=== PATIENT | male | born 1945 | race Caucasian/White ===

== ENCOUNTER → 2016-06-11 | Outpatient (CLI) | payer MEDICARE, OTHER | LOC: RAD 10:07 | PROVIDERS: ATTEND Internal Medicine | DX: C34.11 Malignant neoplasm of upper lobe, right bronchus or lung (principal) | CPT/HCPCS: 71260; 82565 ==

== ENCOUNTER → 2016-10-22 | Outpatient (CLI) | payer MEDICARE, OTHER ==
--- NOTE | 2016-10-22 15:48 | RADIOLOGY REPORT (SQ) ---
EXAM DESCRIPTION: CT SOFT TISSUE NECK WITH COMPLETED DATE/TIME: 10/22/2016 1:50 pm REASON FOR STUDY: LUNG CANCER C34.11 MALIGNANT NEOPLASM OF UPPER LOBE, RIGHT BRONCHUS OR L COMPARISON: None. TECHNIQUE: Post IV contrasted scanning from skull base through lung apices with review of bone, soft tissue and lung windows. Reconstructed coronal and sagittal MPR images reviewed. All images stored on PACS. All CT scanners at this facility use dose modulation, iterative reconstruction, and/or weight based d osing when appropriate to reduce radiation dose to as low as reasonably achievable (ALARA). [facility]: Dose Right [facility]: CareDose [facility]: Dose Right [facility]: Teradose 4D [facility]: [employer] CONTRAST TYPE AND DOSE: contrast/concentration: Isovue 370.00 mg/ml; Total Contrast Delivered: 83.0 ml; Total Saline Delivered: 68.0 ml RENAL FUNCTION: Creatinine 0.8 RADIATION DOSE: 10.54 . LIMITATIONS: None. FINDINGS: SKULL BASE: Intact. MAJOR SALIVARY GLANDS: No solid or cystic masses. No inflammatory changes. LYMPHADENOPATHY: No adenopathy. MUCOSAL MASSES OR ASYMMETRY: No mucosal masses or asymmetry. LARYNX/CORDS: No abnormal findings. VASCULAR STRUCTURES: The major vessels are patent. LUNG APICES: Clear. BONES: Multilevel degenerative disc changes. THYROID: Normal size. No masses. PARANASAL SINUSES: Clear. OTHER: No other significant finding. IMPRESSION: NO SIGNIFICANT FINDING IN THE SOFT TISSUES OF THE NECK. TECHNICAL DOCUMENTATION: JOB ID: [id number] Quality ID # [id number]: Final reports with documentation of one or more dose reduction techniques (e.g., Au tomated exposure control, adjustment of the mA and/or kV according to patient size, use of iterative reconstruction technique) 2010 [employer]- All Rights Reserved
--- NOTE | 2016-10-22 16:05 | RADIOLOGY REPORT (SQ) ---
EXAM DESCRIPTION: CT CHEST WITH; CT ABD/PELVIS WITH IV ONLY COMPLETED DATE/TIME: 10/22/2016 1:50 pm; 10/22/2016 1:51 pm REASON FOR STUDY: LUNG CANCER C34.11 MALIGNANT NEOPLASM OF UPPER LOBE, RIGHT BRONCHUS OR L COMPARISON: Prior CT chest 06/11/2016, 12/11/2015, 05/15/2015, 12/02/2014, 07/25/2014 CONTRAST TYPE AND DOSE: 83 mL Isovue 370- low osmolar. RENAL FUNCTION: Creatinine 0.8 TECHNIQUE: CT scan of the chest performed using helical scanning technique with dynamic intravenous contrast injection. Images reviewed with lung, soft tissue and bone windows. Reconstructed coronal a nd sagittal MPR images reviewed. All images stored on PACS. CT scan of the abdomen and pelvis performed with intravenous and without oral contrastusing helical s cornelio technique with dynamic intravenous contrast injection. Images reviewed with lung, soft tissu e and bone windows. Reconstructed coronal and sagittal MPR images reviewed. Delayed images for eval uation of the urinary system also acquired and evaluated. All images stored on PACS. All CT scanners at this facility use dose modulation, iterative reconstruction, and/or weight based d osing when appropriate to reduce radiation dose to as low as reasonably achievable (ALARA). [facility]: Dose Right [facility]: CareDose [facility]: Dose Right [facility]: Teradose 4D [facility]: [employer] RADIATION DOSE: 12.0; 60.90 . LIMITATIONS: None. FINDINGS: CHEST: LUNGS AND PLEURA: Patient is post wedge resection right apical tumor. There is trace pleural fluid i n the inferior right hemithorax, decreased compared to CT chest 06/11/2016 and 12/11/2015. Minimal patchy airspace disease is present in the medial aspect of the lingula, new compared to prior study worrisome for early or developing pneumonia. This is best shown on axial images 34-37. No left pleural fluid. No right or left pneumothorax. HILAR AND MEDIASTINAL STRUCTURES: Calcified sub- carinal lymph node unchanged. No hilar adenopathy. HEART AND VASCULAR STRUCTURES: No aneurysm or dissection. No central pulmonary emboli. No pericardi al effusion. Mild coronary artery calcification HARDWARE: None. THYROID AND OTHER SOFT TISSUES: No masses. No adenopathy. BONES: No significant finding. OTHER: No other significant finding. ABDOMEN AND PELVIS: LIVER: Normal size. No masses or dilated ducts. SPLEEN: Market splenium megaly, spleen is 20 cm in greatest craniocaudad length. This is new compare d to previous exams. PANCREAS: No masses. No significant calcifications. No adjacent inflammation or peripancreatic fluid collections. Pancreatic duct not dilated. GALLBLADDER: No identified stones by CT criteria. No inflammatory changes to suggest cholecystitis. ADRENAL GLANDS: No significant masses or asymmetry. RIGHT KIDNEY AND URETER: No solid masses. No significant calcification. No hydronephrosis or hydroure ter. LEFT KIDNEY AND URETER: No solid masses. No significant calcification. No hydronephrosis or hydrouret er. AORTA AND VESSELS: No aneurysm. No dissection. Renal arteries, SMA, celiac without stenosis. RETROPERITONEUM: Diffuse retroperitoneal adenopathy is present along the splenic hilum, para-aortic a nd aortocaval regions best shown on coronal images 28-36. Lymph nodes are increased in number but st ill normal in size. BOWEL AND PERITONEAL CAVITY: No masses or inflammatory changes. No free fluid or peritoneal masses. APPENDIX: Normal. ABDOMINAL WALL: No masses. No hernias. BONES: No significant or acute findings. OTHER: No other significant finding. IMPRESSION: Minimal patchy airspace disease in the medial aspect upper lobe lingula, atelectasis inocente palmira pneumonia Decrease in right pleural fluid compared to previous postoperative chest CT exams 06/11/2016 and 2015 New splenomegaly with increased number of retroperitoneal lymph nodes. NORMAL CT OF THE ABDOMEN AND PELVIS WITH ORAL AND INTRAVENOUS CONTRAST. TECHNICAL DOCUMENTATION: JOB ID: [id number] Quality ID # [id number]: Final reports with documentation of one or more dose reduction techniques (e.g., Au tomated exposure control, adjustment of the mA and/or kV according to patient size, use of iterative reconstruction technique) 2010 [employer]- All Rights Reserved
== END ==
LOC: RAD 12:27
PROVIDERS: ATTEND Internal Medicine
DX: C34.11 Malignant neoplasm of upper lobe, right bronchus or lung (principal)
CPT/HCPCS: 70491; 71260; 74177

== ENCOUNTER 2016-11-11 17:17 | Outpatient (CLI) | payer MEDICARE, OTHER ==
[2016-11-11 19:22] LABS: HEMATOCRIT 25.7 % (37.9-51.0); HEMOGLOBIN 8.4 g/dL (13.5-17.0); HGB HCT DIFFERENCE -0.5; MEAN CORPUSCULAR HEMOGLOBIN 29.6 pg (27.0-33.4); MEAN CORPUSCULAR HGB CONC 32.8 g/dL (32.0-36.0); MEAN CORPUSCULAR VOLUME 90 fl (80-97); RED BLOOD COUNT 2.85 10^6/uL (4.35-5.55); RED CELL DISTRIBUTION WIDTH 16.5 % (11.5-14.0); WHITE BLOOD COUNT 8.2 10^3/uL (4.0-10.5)
[2016-11-12] MEDS ORDERED: DIPHENHYDRAMINE HCL 25 MG CAPSULE PO PRN (11:09)
[2016-11-12] MEDS ORDERED: ACETAMINOPHEN 325 MG TABLET PO PRN (11:09)
[2016-11-12] MEDS ORDERED: NORMAL SALINE 250 ML IV PRN (11:12)
[2016-11-12 12:19] VITALS: BP 118/50
== END 2016-11-12 12:20 | disposition home or self-care (01) ==
LOC: OD 17:17 → 5TH 11-12 11:06 → II 11-12 12:20
PROVIDERS: ATTEND Internal Medicine
PROC: 30233R1 Transfusion of Nonautologous Platelets into Peripheral Vein, Percutaneous Approach (ICD-10-PCS; principal; 2016-11-12)
DX: C83.18 Mantle cell lymphoma, lymph nodes of multiple sites (principal); D69.6 Thrombocytopenia, unspecified; D50.8 Other iron deficiency anemias
CPT/HCPCS: 86900; 86901; 36415; 36430; P9035; A9270 ×2

== ENCOUNTER 2017-04-03 16:37 | Inpatient (IN) | payer MEDICARE, OTHER ==
[2017-04-03] MEDS ORDERED: IPRATROPIUM/ALBUTEROL 0.5-2.5 MG/3 ML AMPUL NEB ONE ×3 (17:41→19:04)
[2017-04-03] MEDS ORDERED: METHYLPREDNISOLONE INJ 125 MG/2 ML SDV IV ONE ×2 (17:41→19:40)
[2017-04-03] MEDS ORDERED: CEFTRIAXONE 1 GM/D5W RTU 1 GM/50 ML RTUPB IV ONE (17:42)
--- NOTE | 2017-04-03 17:52 | ER Document Report ---
ED Respiratory Problem - General Chief Complaint: Breathing Difficulty Stated Complaint: DIFFICULTY BREATHING Time Seen by Provider: 04/03/17 17:30 Notes: Patient is complaining of COPD that is worsened over the past 10 days. He uses a nebulizer at home with Spiriva and Advair and he thinks albuterol, but it is not helping much anymore. He does not have home oxygen. He says that he is coughing up "chunks" of yello, w sticky sputum, but has not seen any blood. Patient had the upper lobe of 1 of his lungs removed for cancer last year. Apparently that was able to get all of the cancer out, but, unfortunately, patient was diagnosed 6 months ago with leukemia and is currently getting chemotherapy by Dr. Douglass for the leukemia. Patient continues to smoke about a half a pack of cigarettes a day. Patient says that he has been on a ventilator for a short time in the past. Not sure if he wants to do it again. TRAVEL OUTSIDE OF THE [place] IN LAST 30 DAYS: No - Related Data Allergies/Adverse Reactions: No Known Allergies Allergy (Verified 07/04/15 07:28) Past Medical History - Social History Smoking Status: Current Every Day Smoker Cigarette use (# per day): Yes Chew tobacco use (# tins/day): No Frequency of alcohol use: None Drug Abuse: None Family History: Reviewed & Not Pertinent Patient has suicidal ideation: No Patient has homicidal ideation: No - Past Medical History Cardiac Medical History: Reports: Hx Hypercholesterolemia, Hx Hypertension Denies: Hx Congestive Heart Failure Pulmonary Medical History: Reports: Hx COPD Denies: Hx Asthma, Hx Bronchitis, Hx Pneumonia Endocrine Medical History: Reports: Hx Diabetes Mellitus Type 2 Malignancy Medical History: Reports Hx Leukemia - Currently on chemotherapy, Reports Hx Lung Cancer - Surgical removal of upper lobe of lung last year Past Surgical History: Reports: Other - Upper lobectomy. - Immunizations Hx Diphtheria, Pertussis, Tetanus Vaccination: No Hx Pneumococcal Vaccination: 01/31/12 Review of Systems - Review of Systems Notes: REVIEW OF SYSTEMS: CONSTITUTIONAL : Denies fever. EENT: Denies eye, ear, nose or mouth or throat pain or other symptoms. CARDIOVASCULAR: Denies chest pain. RESPIRATORY: See HPI. GASTROINTESTINAL: Denies abdominal pain or nausea, vomiting, or diarrhea. GENITOURINARY: Denies difficulty or painful urinating, urinary frequency, blood in urine. MUSCULOSKELETAL: Denies back or neck pain. Denies joint pain or swelling. SKIN: Denies rash or skin lesions. NEUROLOGICAL: Denies LOC or altered mental status. Denies headache. Denies sensory loss or motor deficits. ALL OTHER SYSTEMS REVIEWED AND NEGATIVE. Physical Exam - Vital signs Vitals: Pulse Resp Pulse Ox 125 H 30 H 68 L 04/03/17 16:50 04/03/17 16:50 04/03/17 16:50 Interpretation: Tachycardic, Hypoxic, Tachypneic - Notes Notes: PHYSICAL EXAMINATION: GENERAL: Chronically ill appearing. Tachypneic. Appears to have difficulty with his respirations., Labored. O2 by nasal cannula running. HEAD: Atraumatic, normocephalic. EYES: Pupils equal round and reactive to light, extraocular movements intact. ENT: oropharynx clear without exudates. Moist mucous membranes. NECK: Normal range of motion, supple. LUNGS: with a loud rhonchi and some wheezes throughout both lung zamarripa. HEART: Regular rate and rhythm without murmurs. ABDOMEN: Soft, nontender. No guarding or rebound. BACK: No tenderness throughout entire back. EXTREMITIES: Normal range of motion without pain. No edema. NEUROLOGICAL: Normal speech, normal gait. Normal sensory, motor, and reflex exams. Awake, alert, and oriented x3. Cranial nerves normal. PSYCH: Normal mood, normal affect. SKIN: Warm, dry, no rashes. Course - Re-evaluation Re-evalutation: 04/03/17 19:33 Patient has removed his oxygen a couple times and each time his O2 sat drops to upper 60s or 70%. I am going to try him on BiPAP and see if he can tolerate that. Discussed whether the patient wants to be on a ventilator or not and he said he was not sure and would think about it. Discussed with Dr. Evans, who is on-call for Dr. Jefferson, and patient will be admitted to [facility]. Patient has been given DuoNeb 2, Solu-Medrol 125 mg IV, Rocephin 1 g IV. - Vital Signs Vital signs: Temp Pulse Resp BP Pulse Ox 98.6 F 122 H 61 H 128/79 H 93 04/03/17 17:03 04/03/17 17:03 04/03/17 19:01 04/03/17 19:01 04/03/17 19:01 - Laboratory Result Diagrams: 04/03/17 17:40 04/03/17 17:40 Laboratory results interpreted by me: 04/03/17 04/03/17 17:40 17:40 RBC 4.06 L Hgb 12.4 L Hct 36.8 L Band Neutrophils % 9 H Lymphocytes % (Manual) 5 L Monocytes % (Manual) 42 H Abs Lymphs (Manual) 0.3 L Abs Monocytes (Manual) 2.0 H Chloride 96 L Carbon Dioxide 37 H Glucose 184 H Calcium 10.4 H Direct Bilirubin 0.5 H Creatine Kinase < 20 L Band percentage of 9% noted. - Diagnostic Test Radiology reviewed: Image reviewed, Reports reviewed - Chest x-ray shows COPD, but no acute radiological - EKG Interpretation by Me EKG shows normal: Sinus rhythm Rate: Tachycardia Additional EKG results interpreted by me: 04/03/17 19:47 EKG shows tachycardia, but no acute changes. Critical Care Note - Critical Care Note Total time excluding time spent on procedures (mins): 45 Discharge - Discharge Clinical Impression: COPD exacerbation, Hypoxia Condition: Serious Disposition: ADMITTED INPATIENT Admitting Provider: Jefferson Unit Admitted: [facility]
[2017-04-03 18:05] LABS: HEMATOCRIT 36.8 % (37.9-51.0); HEMOGLOBIN 12.4 g/dL (13.5-17.0); HGB HCT DIFFERENCE 0.4; MEAN CORPUSCULAR HEMOGLOBIN 30.6 pg (27.0-33.4); MEAN CORPUSCULAR HGB CONC 33.7 g/dL (32.0-36.0); MEAN CORPUSCULAR VOLUME 91 fl (80-97); RED BLOOD COUNT 4.06 10^6/uL (4.35-5.55); RED CELL DISTRIBUTION WIDTH 13.6 % (11.5-14.0); WHITE BLOOD COUNT 4.7 10^3/uL (4.0-10.5)
[2017-04-03 18:24] LABS: ALANINE AMINOTRANSFERASE 35 U/L (21-72); ALBUMIN 3.5 g/dL (3.5-5.0); ALKALINE PHOSPHATASE 81 U/L (38-126); ANION GAP 9 (5-19); ASPARTATE AMINO TRANSFERASE 29 U/L (17-59); BILIRUBIN,DIRECT 0.5 mg/dL (0.0-0.4); BILIRUBIN,TOTAL 0.6 mg/dL (0.2-1.3); BLOOD UREA NITROGEN 10 mg/dL (7-20); CALCIUM 10.4 mg/dL (8.4-10.2); CARBON DIOXIDE 37 mmol/L (22-30); CHLORIDE 96 mmol/L (98-107); CREATININE RESULT 0.54 mg/dL (0.52-1.25); GLUCOSE 184 mg/dL (75-110); LIPASE 40.6 U/L (23-300); POTASSIUM 4.5 mmol/L (3.6-5.0); SODIUM 142.1 mmol/L (137-145); TOTAL PROTEIN 6.3 g/dL (6.3-8.2)
[2017-04-03 18:27] LABS: CREATINE KINASE < 20 U/L (55-170)
--- NOTE | 2017-04-03 18:28 | RADIOLOGY REPORT (SQ) ---
EXAM DESCRIPTION: CHEST SINGLE VIEW COMPLETED DATE/TIME: 04/03/2017 6:11 pm REASON FOR STUDY: COPD, hypoxia, respiratory distress COMPARISON: 07/04/2015 EXAM PARAMETERS: NUMBER OF VIEWS: One view. TECHNIQUE: Single frontal radiographic view of the chest acquired. RADIATION DOSE: NA LIMITATIONS: None. FINDINGS: LUNGS AND PLEURA: No consolidation or pleural effusion. Postsurgical changes from partial right pneumonectomy are present. No pneumothorax. MEDIASTINUM AND HILAR STRUCTURES: Expected contour. HEART AND VASCULAR STRUCTURES: Heart normal in size. Normal vasculature. BONES: No acute findings. HARDWARE: None in the chest. OTHER: No other significant finding. IMPRESSION: NO ACUTE RADIOGRAPHIC FINDING IN THE CHEST. TECHNICAL DOCUMENTATION: JOB ID: [id number] [place]-72 2010 [employer]- All Rights Reserved
[2017-04-03 18:32] LABS: BAND NEUTROPHILS % (MANUAL) 9 % (3-5); BASOPHILS % (MANUAL) 0 % (0-2); EOSINOPHILS % (MANUAL) 0 % (0-6); LYMPHOCYTES % (MANUAL) 5 % (13-45); TOTAL CELLS COUNTED 100
[2017-04-03 18:34] LABS: CREATINE KINASE MB 1.11 ng/mL (<4.55); HYPOCHROMASIA SLIGHT; POLYCHROMASIA SLIGHT; TROPONIN I 0.018 ng/mL
--- NOTE | 2017-04-03 19:03 | EKG REPORT ---
SEVERITY:- ABNORMAL ECG - SINUS TACHYCARDIA LEFT ANTERIOR FASCICULAR BLOCK : Confirmed by: Devin Luevano MD 03-Apr-2017 19:02:27
[2017-04-03] MEDS ORDERED: NORMAL SALINE 1000 ML 1,000 ML IV PRN (19:34)
[2017-04-03] MEDS ORDERED: IPRATROPIUM/ALBUTEROL 0.5-2.5 MG/3 ML AMPUL NEB PRN (19:34)
[2017-04-03 19:35] LABS: APPEARANCE,URINE CLOUDY; BILIRUBIN,URINE NEGATIVE (NEGATIVE); GLUCOSE, URINE 50 mg/dL (NEGATIVE); KETONES,URINE TRACE mg/dL (NEGATIVE); LEUKOCYTE ESTERASE,URINE NEGATIVE (NEGATIVE); NITRITE,URINE NEGATIVE (NEGATIVE); PROTEIN,URINE >=500 mg/dL (NEGATIVE)
[2017-04-03 19:48] LABS: VENOUS BLOOD BASE EXCESS 7.5 mmol/L; VENOUS BLOOD HCO3 36.5 mmol/L (20-32); VENOUS BLOOD PH 7.31 (7.30-7.42)
[2017-04-03 19:50] LABS: VENOUS BLOOD PCO2 73.4 mmHg (35-63)
[2017-04-03 20:00] LABS: RBC,URINE 0-1 /HPF
[2017-04-03 20:01] LABS: BACTERIA,URINE 2+ /HPF
[2017-04-03 20:04] LABS: PROTHROMBIN TIME 14.8 SEC (11.4-15.4)
[2017-04-03 20:05] LABS: PARTIAL THROMBOPLASTIN TIME 46.1 SEC (23.5-35.8)
[2017-04-03 20:14] LABS: MAGNESIUM 1.3 mg/dL (1.6-2.3)
[2017-04-03 20:22] LABS: AMYLASE < 30 U/L (30-110)
[2017-04-03 20:46] LABS: THYROID STIMULATING HORMONE 0.36 uIU/mL (0.47-4.68)
[2017-04-03 21:35] LABS: ARTERIAL BLOOD BASE EXCESS 6.9 mmol/L; ARTERIAL BLOOD O2 SATURATION 94.9 % (94-98)
[2017-04-03] MEDS: LEVOFLOXACIN 750 MG/D5W RTU 750 MG/150 ML RTUPB IV SCH (21:47)
[2017-04-04] MEDS ORDERED: DEXTROSE 40% GEL 15 GM TUBE PO PRN ×2 (00:42)
[2017-04-04] MEDS ORDERED: GLUCAGON,HUMAN RECOMB 1 MG INJ IM PRN (00:42)
[2017-04-04] MEDS ORDERED: DEXTROSE 50%-WATER 25 GM/50 ML DISP.SYRIN IV PRN ×2 (00:42)
[2017-04-04] MEDS: METHYLPREDNISOLONE INJ 125 MG/2 ML SDV IV SCH ×3 (02:44→18:17)
[2017-04-04 06:03] LABS: ALANINE AMINOTRANSFERASE 35 U/L (21-72); ALBUMIN 3.3 g/dL (3.5-5.0); ALKALINE PHOSPHATASE 68 U/L (38-126); ANION GAP 9 (5-19); ASPARTATE AMINO TRANSFERASE 21 U/L (17-59); BILIRUBIN,DIRECT 0.4 mg/dL (0.0-0.4); BILIRUBIN,TOTAL 0.4 mg/dL (0.2-1.3); BLOOD UREA NITROGEN 19 mg/dL (7-20); CALCIUM 10.4 mg/dL (8.4-10.2); CARBON DIOXIDE 38 mmol/L (22-30); CHLORIDE 96 mmol/L (98-107); CHOLESTEROL 131.26 mg/dL (0-200); Direct HDL 31 mg/dL (>40); GLUCOSE 265 mg/dL (75-110); SODIUM 143.1 mmol/L (137-145); TRIGLYCERIDES 122 mg/dL (<150)
[2017-04-04 06:04] LABS: HEMATOCRIT 34.1 % (37.9-51.0); HEMOGLOBIN 11.8 g/dL (13.5-17.0); HGB HCT DIFFERENCE 1.3; MEAN CORPUSCULAR HEMOGLOBIN 31.1 pg (27.0-33.4); MEAN CORPUSCULAR HGB CONC 34.5 g/dL (32.0-36.0); MEAN CORPUSCULAR VOLUME 90 fl (80-97); RED BLOOD COUNT 3.79 10^6/uL (4.35-5.55); RED CELL DISTRIBUTION WIDTH 13.6 % (11.5-14.0)
[2017-04-04 06:14] LABS: DIRECT LDL 76 mg/dL (<100)
[2017-04-04 06:36] LABS: WHITE BLOOD COUNT 2.6 10^3/uL (4.0-10.5)
[2017-04-04 06:44] LABS: POTASSIUM 5.4 mmol/L (3.6-5.0)
[2017-04-04] MEDS ORDERED: ACETAMINOPHEN 325 MG TABLET PO PRN (08:08)
[2017-04-04] MEDS: INSULIN LISPRO 100 UNIT/ML 3 ML VIAL SUBCUT PRN ×4 (08:33→22:23)
--- NOTE | 2017-04-04 08:51 | PDOC CONSULTATION ---
Consultation Consult Date: 04/04/17 Attending physician:: FRANKLIN LEA Consult reason:: Pt w/ known hx of mantle cell lymphoma on active tx w/ copd exacerbation/pneumonia History of Present Illness Admission Date/PCP: 04/03/17 19:42 FRANKLIN LEA MD Patient complains of: SOB/FELIX History of Present Illness: FRANKIE Lau COUSINS is a 72 year old male well known to our oncology clinic w/ both hx of stage I lung ca s/p RU lobectomy and recent dx of mantle cell lymphoma. Recent imaging w/ no evidence of lung ca but pt had mantle cell lymphoma dx in 09/2016 had pancytopenia, bmbx indicated 90% effacement w/ mantle cell lymphoma, CT C/A/P at that time w/ diffuse LAD mediastinal and retroperitoneal w/ splenomegaly, he has been on chemo/rx w/ bendamustine and rituxan, cycle #5 was given 03/07/2017 and he was planned to start cycle #6 today in office. He comes w/ 2-3 day hx of SOB/FELIX, cough, congestion, upon admit to ED, he had O2 sat 70% w/ abg indicating CO2 was 77, he is currently on BIPAP. He is on broad spec atbx awaiting hospital inpt room. His wt ct was 4 range upon admit, lower today at 2.6 Past Medical History Cardiac Medical History: Reports: Hyperlipidema, Hypertension Denies: Congestive Heart Failure Pulmonary Medical History: Reports: Chronic Obstructive Pulmonary Disease (COPD) Denies: Asthma, Bronchitis, Pneumonia Endocrine Medical History: Reports: Diabetes Mellitus Type 2 Malignancy Medical History: Reports: Lung Cancer - RU lobectomy 08/2015, Lymphoma - on rx as in hpi Hematology: Reports: Anemia Past Surgical History Past Surgical History: Reports: Other - R Upper lobectomy, BMBx Social History Information Source: Patient Smoking Status: Current Every Day Smoker Cigarettes Packs Per Day: 1 Number of Years Smokin Frequency of Alcohol Use: Rare Drugs: None - Advance Directive Resuscitation Status: Full Code Family History Family History: Reviewed & Not Pertinent Parental Family History Reviewed: Yes Children Family History Reviewed: Yes Sibling(s) Family History Reviewed.: Yes Medication/Allergy Home Medications: Fenofibrate Nanocrystallized [Tricor 145 mg Tablet] 1 tab PO QHS 11/12/14 Rosuvastatin Calcium [Crestor 20 mg Tablet] 1 tab PO DAILY 11/12/14 Amlodipine Besylate/Benazepril [Amlodipine-Benazepril 10-40 mg] 1 tab PO DAILY 11/14/14 Aspirin [Ecotrin 81 mg EC Tablet] 1 tab PO DAILY 11/14/14 Fluticasone/Salmeterol [Advair 100-50 Diskus 14 Dose/Diskus] 1 puff IH DAILY Pregabalin [Lyrica 100 mg Capsule] 1 tab PO TID 11/14/14 Sitagliptin Phos/Metformin HCl [Janumet Xr 50-1,000 mg Tablet] 1 tab PO BID Tiotropium Wilson [Spiriva Handihaler 18 mcg/dose (30 Dose)] 1 tab PO DAILY Ascorbic Acid [Vitamin C] 1,000 mg PO DAILY 01/20/15 Multivitamin [Daily Multiple Vitamin] 1 each PO DAILY 01/20/15 [place]-3 Fatty Acids/Fish Oil [Fish Oil 1,000 mg Capsule] 1 tab PO BID 01/20/15 Antibiotic 1 tab PO DAILY 07/04/15 Allergies/Adverse Reactions: No Known Allergies Allergy (Verified 07/04/15 07:28) Review of Systems Constitutional: ABSENT: chills, fever(s), headache(s), weight gain, weight loss Eyes: ABSENT: visual disturbances Ears: ABSENT: hearing changes Cardiovascular: ABSENT: chest pain, dyspnea on exertion, edema, orthropnea, palpitations Respiratory: ABSENT: cough, hemoptysis Gastrointestinal: ABSENT: abdominal pain, constipation, diarrhea, hematemesis, hematochezia, nausea, vomiting Genitourinary: ABSENT: dysuria, hematuria Musculoskeletal: ABSENT: joint swelling Integumentary: ABSENT: rash, wounds Neurological: ABSENT: abnormal gait, abnormal speech, confusion, dizziness, focal weakness, syncope Psychiatric: ABSENT: anxiety, depression, homidical ideation, suicidal ideation Endocrine: ABSENT: cold intolerance, heat intolerance, polydipsia, polyuria Hematologic/Lymphatic: ABSENT: easy bleeding, easy bruising Physical Exam Vital Signs: Temp Pulse Resp BP Pulse Ox 98.1 F 122 H 39 H 132/75 H 99 04/04/17 03:11 04/03/17 17:03 04/04/17 07:01 04/04/17 07:01 04/04/17 07:01 Intake & Output 04/03/17 04/04/17 04/05/17 06:59 06:59 06:59 Weight 68.266 kg General appearance: PRESENT: no acute distress, well-developed, well-nourished Head exam: PRESENT: atraumatic, normocephalic Eye exam: PRESENT: conjunctiva pink, EOMI, PERRLA. ABSENT: scleral icterus Ear exam: PRESENT: normal external ear exam Mouth exam: PRESENT: moist, tongue midline Neck exam: ABSENT: carotid bruit, JVD, lymphadenopathy, thyromegaly Respiratory exam: PRESENT: clear to auscultation kali. ABSENT: rales, rhonchi, wheezes Cardiovascular exam: PRESENT: RRR. ABSENT: diastolic murmur, rubs, systolic murmur Pulses: PRESENT: normal dorsalis pedis pul Vascular exam: PRESENT: normal capillary refill GI/Abdominal exam: PRESENT: normal bowel sounds, soft. ABSENT: distended, guarding, mass, organolmegaly, rebound, tenderness Rectal exam: PRESENT: deferred Extremities exam: PRESENT: full ROM. ABSENT: calf tenderness, clubbing, pedal edema Neurological exam: PRESENT: alert, awake, oriented to person, oriented to place , oriented to time, oriented to situation, CN II-XII grossly intact. ABSENT: motor sensory deficit Psychiatric exam: PRESENT: appropriate affect, normal mood. ABSENT: homicidal ideation, suicidal ideation Skin exam: PRESENT: dry, intact, warm. ABSENT: cyanosis, rash Results Laboratory Results: 04/04/17 05:35 04/04/17 05:35 04/03/17 04/03/17 04/04/17 20:06 21:23 05:35 WBC 2.6 L D RBC 3.79 L Hgb 11.8 L Hct 34.1 L MCV 90 MCH 31.1 MCHC 34.5 RDW 13.6 Plt Count 319 Carbonic Acid 2.34 H HCO3/H2CO3 Ratio 15:1 ABG pH 7.28 L ABG pCO2 77.9 H* ABG pO2 86.2 ABG HCO3 35.9 H ABG O2 Saturation 94.9 ABG Base Excess 6.9 FiO2 35% Sodium Potassium Chloride Carbon Dioxide Anion Gap BUN Creatinine Est GFR ( Amer) Est GFR (Non-Af Amer) Glucose Calcium Total Bilirubin AST ALT Alkaline Phosphatase Ammonia 9.0 Total Protein Albumin Triglycerides Cholesterol LDL Cholesterol Direct VLDL Cholesterol HDL Cholesterol 04/04/17 05:35 WBC RBC Hgb Hct MCV MCH MCHC RDW Plt Count Carbonic Acid HCO3/H2CO3 Ratio ABG pH ABG pCO2 ABG pO2 ABG HCO3 ABG O2 Saturation ABG Base Excess FiO2 Sodium 143.1 Potassium 5.4 H Chloride 96 L Carbon Dioxide 38 H Anion Gap 9 BUN 19 Creatinine 0.60 Est GFR ( Amer) > 60 Est GFR (Non-Af Amer) > 60 Glucose 265 H Calcium 10.4 H Total Bilirubin 0.4 AST 21 ALT 35 Alkaline Phosphatase 68 Ammonia Total Protein 6.0 L Albumin 3.3 L Triglycerides 122 Cholesterol 131.26 LDL Cholesterol Direct 76 VLDL Cholesterol 24.0 HDL Cholesterol 31 L 04/03/17 04/03/17 04/04/17 23:45 23:45 05:35 Creatine Kinase < 20 L < 20 L Troponin I 0.018 04/04/17 05:35 Creatine Kinase Troponin I 0.014 Impressions: Chest X-Ray 04/03/17 17:43 IMPRESSION: NO ACUTE RADIOGRAPHIC FINDING IN THE CHEST. Status: Image reviewed by me Assessment & Plan - Diagnosis (1) Pancytopenia due to antineoplastic chemotherapy Is this a current diagnosis for this admission?: Yes Plan: Counts are stable, pt w/ mild leukopenia which is appropriate for him, only monitor for now. (2) Mantle cell lymphoma Qualifiers: Lymphoma site: multiple regions Qualified Code(s): C83.18 - Mantle cell lymphoma, lymph nodes of multiple sites Is this a current diagnosis for this admission?: Yes Plan: Currently on chemo, was supposed to get chemo this week, have told our staff pt is admitted, will likely treat next week once pt d/c'd from hospital. He is doing well and responding very well to treatment. He will receive Cycle #6 as outpt likely next week and transition to maintenance Rituxan therafter. We will reimage him w/ CT CAP after cycle #6. - Time Time Spent: Greater than 70 Minutes - Inpatient Certification Based on my medical assessment, after consideration of the patient's comorbidities, presenting symptoms, or acuity I expect that the services needed warrant INPATIENT care.: Yes I certify that my determination is in accordance with my understanding of Medicare's requirements for reasonable and necessary INPATIENT services [42 CFR 412.3e].: Yes Medical Necessity: Need For Continuous Telemetry Monitoring, Need for Nebulizer Therapy and Monitoring of Response, Need for IV Antibiotics
[2017-04-04] MEDS ORDERED: IPRATROPIUM/ALBUTEROL 0.5-2.5 MG/3 ML AMPUL NEB PRN (09:00)
[2017-04-04] MEDS ORDERED: ENOXAPARIN SODIUM INJ 40 MG/0.4 ML DISP.SYRIN SUBCUT SCH (10:00)
[2017-04-04] MEDS ORDERED: ALBUTEROL SULFATE 0.083% NEB 2.5 MG/3 ML AMPUL NEB PRN (10:09)
[2017-04-04] MEDS: ENOXAPARIN SODIUM INJ 40 MG/0.4 ML DISP.SYRIN SUBCUT SCH (10:55)
[2017-04-04] MEDS: DOCUSATE SODIUM 100 MG CAPSULE PO SCH (10:56)
[2017-04-04] MEDS: CEFEPIME 1 GM/D5W RTU 1 GM/50 ML RTUPB IV SCH ×2 (10:57→22:25)
--- NOTE | 2017-04-04 11:21 | PDOC CONSULTATION ---
Consultation Consult Date: 04/04/17 Attending physician:: FRANKLIN LEA Consult reason:: dyspnea History of Present Illness Admission Date/PCP: 04/03/17 19:42 FRANKLIN LEA MD History of Present Illness: 72-year-old male presents emergency room complaining increasing shortness of breath which should become progressive over the last 7-10 days but still cough sometimes productive light yellow phlegm he denies hemoptysis his PPD status was negative dates unknown he has no history of chronic lung disease as a child or adolescent he denies nausea vomiting fevers chills or diarrhea. He admits to exposure to heavy smoke as a child as well as an adult. He is self smoked 3 packs per day for 56 years and continues to smoke up until 2 weeks ago. He served in [employer] for 20 years. 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 He denies angina-like chest pain he denies any recent travel he has 3 dogs sleeps on one pillow denies PND nocturnal cough or edema. He is unaware of any snoring but admits to some restless sleep nocturia 2 unrestful sleep and excessive daytime somnolence. He has had a history in the past of lung cancer as well as lymphoma and he is being followed by Dr. Douglass for both of these Past Medical History Cardiac Medical History: Reports: Hyperlipidema, Hypertension Denies: Congestive Heart Failure Pulmonary Medical History: Reports: Chronic Obstructive Pulmonary Disease (COPD) Denies: Asthma, Bronchitis, Pneumonia EENT Medical History: Denies: Ears, Nose Neurological Medical History: Denies: Hemorrhagic CVA, Ischemic CVA, Migraine, Multiple Sclerosis, Seizures Endocrine Medical History: Reports: Diabetes Mellitus Type 2 Denies: Gestational Diabetes, Hyperthyroidism, Hypothyroidism, Obesity Renal/ Medical History: Denies: Nephrolithiasis Malignancy Medical History: Reports: Leukemia - Currently on chemotherapy, Lung Cancer - RU lobectomy 08/2015, Lymphoma - on rx as in hpi GI Medical History: Denies: Cirrhosis, Crohn's Disease, Peptic Ulcer Disease, Ulcerative Colitis Musculoskeltal Medical History: Denies: Fibromyalgia, Gout Skin Medical History: Denies: Eczema, Psoriasis Psychiatric Medical History: Reports: Tobacco Dependency Hematology: Reports: Anemia Denies: Sickle Cell Disease Infectious Medical History: Denies: Hepatitis B, Hepatitis C Past Surgical History Past Surgical History: Reports: Other - R Upper lobectomy, BMBx Social History Information Source: Patient, H Records 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 Smoking Status: Current Every Day Smoker Cigarettes Packs Per Day: 3 Number of Years Smokin Passive smoke exposure as: Both Frequency of Alcohol Use: Rare Hx Recreational Drug Use: No Drugs: None Hx Prescription Drug Abuse: No Do you have pets?: Yes Have you had any respiratory illnesses as a child?: No Have you had any recent respiratory illnesses?: No Have you travelled outside of [place] in the past 12 months?: No - Advance Directive Resuscitation Status: Full Code Family History Family History: DM, Hypertension, Malignancy Parental Family History Reviewed: Yes Children Family History Reviewed: Yes Sibling(s) Family History Reviewed.: Yes Medication/Allergy Home Medications: Allopurinol [Zyloprim 300 mg Tablet] 300 mg PO DAILY 04/04/17 Amlodipine Besylate/Benazepril [Lotrel 10-40 mg Capsule] 1 cap PO DAILY Ascorbic Acid [Vitamin C] 1,000 mg PO DAILY 04/04/17 Aspirin [Ecotrin 81 mg EC Tablet] 81 mg PO DAILY 04/04/17 Atorvastatin Calcium [Lipitor 20 mg Tablet] 20 mg PO QHS 04/04/17 Fenofibrate Nanocrystallized [Tricor 145 mg Tablet] 145 mg PO QHS 04/04/17 Fluticasone Propionate [Flonase Nasal [place] 50 Mcg/Marvin 16 gm] 1 spray NASL DAILY 04/04/17 Fluticasone/Salmeterol [Advair 100-50 Diskus 28 Dose] 1 puff IH Q12 04/04/17 Glimepiride [Amaryl] 2 mg PO DAILY 04/04/17 Multivitamin [Daily Multiple Vitamin] 1 tab PO DAILY 04/04/17 [place]-3 Fatty Acids/Fish Oil [[place] 3 Fish Oil Softgel] 1,000 mg PO DAILY Pregabalin [Lyrica 100 mg Capsule] 100 mg PO Q8 04/04/17 Sitagliptin Phos/Metformin HCl [Janumet 50-1,000 mg Tablet] 1 tab PO Q12 Tiotropium [place] [Spiriva Handihaler 18 mcg/dose (30 Dose)] 1 cap IH DAILY 08/16 Allergies/Adverse Reactions: No Known Allergies Allergy (Verified 07/04/15 07:28) Review of Systems Constitutional: ABSENT: anorexia, chills, fatigue, fever(s), headache(s), night sweats, weakness Eyes: ABSENT: visual disturbances Ears: ABSENT: hearing changes Nose, Mouth, and Throat: ABSENT: mouth pain, sore throat Cardiovascular: PRESENT: dyspnea on exertion. ABSENT: chest pain, edema, orthropnea, palpitations Respiratory: PRESENT: cough, dyspnea. ABSENT: hemoptysis Gastrointestinal: ABSENT: abdominal pain, bloating, coffee ground emesis, constipation, diarrhea, dysphagia, heartburn, hematemesis, hematochezia, melena , nausea, vomiting Genitourinary: PRESENT: nocturia. ABSENT: difficulty urinating, dysuria, hematuria Musculoskeletal: ABSENT: deformity, joint swelling Integumentary: ABSENT: pruritus, rash Neurological: ABSENT: abnormal speech, confusion, convulsions, focal weakness, memory loss, numbness, paresthesias Psychiatric: ABSENT: hallucinations, homidical ideation, suicidal ideation Endocrine: ABSENT: cold intolerance, heat intolerance Hematologic/Lymphatic: PRESENT: easy bruising Physical Exam Vital Signs: Temp Pulse Resp BP Pulse Ox 97.8 F 77 39 H 119/57 L 98 04/04/17 09:19 04/04/17 09:36 04/04/17 10:01 04/04/17 10:01 04/04/17 10:01 Intake & Output 04/03/17 04/04/17 04/05/17 06:59 06:59 06:59 Weight 68.266 kg General appearance: PRESENT: no acute distress, cooperative, disheveled, thin, well-developed, well-nourished Head exam: PRESENT: atraumatic, normocephalic Eye exam: PRESENT: conjunctiva pale, EOMI, PERRLA. ABSENT: conjunctival injection, conjunctiva pink, nystagmus, periorbital swelling, scleral icterus Mouth exam: PRESENT: moist, neck supple, tongue midline. ABSENT: laceration Teeth exam: PRESENT: edentulous Neck exam: ABSENT: carotid bruit, JVD, lymphadenopathy, thyromegaly, tracheal deviation, tracheostomy Respiratory exam: PRESENT: decreased breath sounds, prolonged expiratory phas, rhonchi, symmetrical, unlabored, wheezes. ABSENT: accessory muscle use, chest wall tenderness, clear to auscultation kali, crackles, retraction, stridor, tachypnea Cardiovascular exam: PRESENT: RRR, +S1, +S2. ABSENT: clicks, gallop, rubs Pulses: PRESENT: normal radial pulses GI/Abdominal exam: PRESENT: normal bowel sounds, soft. ABSENT: distended, guarding, mass, organolmegaly, rebound, tenderness Extremities exam: ABSENT: clubbing, joint swelling, pedal edema Musculoskeletal exam: ABSENT: deformity, dislocation, tenderness Neurological exam: PRESENT: alert, awake Psychiatric exam: PRESENT: normal mood Skin exam: PRESENT: dry, warm Results Laboratory Results: 04/04/17 05:35 04/04/17 05:35 04/03/17 04/03/17 04/04/17 20:06 21:23 05:35 WBC 2.6 L D RBC 3.79 L Hgb 11.8 L Hct 34.1 L MCV 90 MCH 31.1 MCHC 34.5 RDW 13.6 Plt Count 319 Carbonic Acid 2.34 H HCO3/H2CO3 Ratio 15:1 ABG pH 7.28 L ABG pCO2 77.9 H* ABG pO2 86.2 ABG HCO3 35.9 H ABG O2 Saturation 94.9 ABG Base Excess 6.9 FiO2 35% Sodium Potassium Chloride Carbon Dioxide Anion Gap BUN Creatinine Est GFR ( Amer) Est GFR (Non-Af Amer) Glucose Calcium Total Bilirubin AST ALT Alkaline Phosphatase Ammonia 9.0 Total Protein Albumin Triglycerides Cholesterol LDL Cholesterol Direct VLDL Cholesterol HDL Cholesterol 04/04/17 05:35 WBC RBC Hgb Hct MCV MCH MCHC RDW Plt Count Carbonic Acid HCO3/H2CO3 Ratio ABG pH ABG pCO2 ABG pO2 ABG HCO3 ABG O2 Saturation ABG Base Excess FiO2 Sodium 143.1 Potassium 5.4 H Chloride 96 L Carbon Dioxide 38 H Anion Gap 9 BUN 19 Creatinine 0.60 Est GFR ( Amer) > 60 Est GFR (Non-Af Amer) > 60 Glucose 265 H Calcium 10.4 H Total Bilirubin 0.4 AST 21 ALT 35 Alkaline Phosphatase 68 Ammonia Total Protein 6.0 L Albumin 3.3 L Triglycerides 122 Cholesterol 131.26 LDL Cholesterol Direct 76 VLDL Cholesterol 24.0 HDL Cholesterol 31 L 04/03/17 04/03/17 04/04/17 23:45 23:45 05:35 Creatine Kinase < 20 L < 20 L Troponin I 0.018 04/04/17 05:35 Creatine Kinase Troponin I 0.014 Impressions: Chest X-Ray 04/03/17 17:43 IMPRESSION: NO ACUTE RADIOGRAPHIC FINDING IN THE CHEST. Assessment & Plan - Diagnosis (1) Acute and chronic respiratory failure Qualifiers: Respiratory failure complication: hypoxia and hypercapnia Qualified Code(s) : J96.21 - Acute and chronic respiratory failure with hypoxia; J96.22 - Acute and chronic respiratory failure with hypercapnia; J96.22 - Acute and chronic respiratory failure with hypercapnia; J96.22 - Acute and chronic respiratory failure with hypercapnia Is this a current diagnosis for this admission?: Yes Plan: Labs- All tests 24 hr 04/03/17 21:23 ABG pH 7.28 L ABG pCO2 77.9 H* ABG pO2 86.2 ABG O2 Saturation 94.9 FiO2 35% Noninvasive positive pressure ventilation as tolerated (2) COPD exacerbation Is this a current diagnosis for this admission?: Yes Plan: Generic Name Dose Route Start Last Admin Trade Name Freq PRN Reason Stop Dose Admin Methylprednisolone Sodium Succinate 125 mg 04/04/17 02:00 04/04/17 10:56 Solu-Medrol Inj/Pf 125 Mg/2 Ml Sdv IV 05/04/17 01:59 125 mg Q8A NELLIE Albuterol 2.5 mg 04/04/17 10:09 Ventolin 0.083% Neb 2.5 Mg/3 Ml Ampul NEB 05/04/17 10:08 RTQ2HP PRN FOR WHEEZING Albuterol/Ipratropium 3 ml 04/04/17 12:00 Duoneb 3 Ml Ampul NEB 05/04/17 11:59 RTQ4 NELLIE Pulmicort 0.5 hand-held nebulizer every 12 hours (3) Hypoxia Is this a current diagnosis for this admission?: Yes Plan: Supplemental oxygen as needed keeping in mind 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 Douglass (5) Pancytopenia due to antineoplastic chemotherapy Is this a current diagnosis for this admission?: Yes Plan: Labs- All tests 24 hr 04/03/17 04/04/17 17:40 05:35 WBC 2.6 L D Plt Count 370 319 Platelets appear to be within normal limits
--- NOTE | 2017-04-04 11:51 | RADIOLOGY REPORT (SQ) ---
EXAM DESCRIPTION: CTA CHEST COMPLETED DATE/TIME: 04/04/2017 11:35 am REASON FOR STUDY: sob COMPARISON: Multiple, most recent 10/22/2016 TECHNIQUE: CT scan of the chest performed using helical scanning technique with dynamic intravenous contrast injection. Images reviewed with lung, soft tissue and bone windows. Reconstructed coronal and sagittal MPR images reviewed. Additional 3 dimensional post-processing performed to develop Maximal Intensity Projection images (NM P). All images stored on PACS. All CT scanners at this facility use dose modulation, iterative reconstruction, and/or weight based d osing when appropriate to reduce radiation dose to as low as reasonably achievable (ALARA). [facility]: Dose Right [facility]: CareDose [facility]: Dose Right [facility]: Teradose 4D [facility]: Smart Technologies CONTRAST TYPE AND DOSE: Not recorded by technologist. Contrast bolus optimized for the pulmonary arteries. Not diagnostic for the aorta. RENAL FUNCTION: BUN 19 creatinine 0.6 RADIATION DOSE: . LIMITATIONS: None. FINDINGS: LUNGS AND PLEURA: Partial right pneumonectomy. Increasing reticular nodular pattern in jayde th lungs. Chronic small right pleural effusion. AORTA AND GREAT VESSELS: No aneurysm. Contrast bolus not optimized for the aorta. HEART: No pericardial effusion. PULMONARY ARTERIES: No emboli visualized in the main pulmonary arteries or the segmental branches. HILAR AND MEDIASTINAL STRUCTURES: Calcified mediastinal nodes. HARDWARE: None in the chest. UPPER ABDOMEN: Wedge-shaped low density in the spleen consistent with infarct. Old granulomatous dis ease. THYROID AND OTHER SOFT TISSUES: No masses. No adenopathy. BONES: No acute findings. 3D MIPS: Confirm above findings. OTHER: No other significant finding. IMPRESSION: 1. No PE. 2. Reticular nodular pattern which could be due to infection, inflammation or lymphangitic spread of tumor. COMMENT: Quality ID # [id number]: Final reports with documentation of one or more dose reduction techniques (e.g., Automated exposure control, adjustment of the mA and/or kV according to patient size, use of iterative reconstruction technique) TECHNICAL DOCUMENTATION: JOB ID: [id number]- All Rights Reserved
[2017-04-04] MEDS: IPRATROPIUM/ALBUTEROL 0.5-2.5 MG/3 ML AMPUL NEB SCH ×4 (12:16→23:53)
--- NOTE | 2017-04-04 12:22 | PDOC H&P ---
History of Present Illness Admission Date/PCP: 04/03/17 19:42 FRANKLIN LEA MD Patient complains of: Shortness of the breath History of Present Illness: 72-year-old male presents emergency room complaining increasing shortness of breath which should become progressive over the last 7-10 days but still cough sometimes productive light yellow phlegm he denies hemoptysis his PPD status was negative dates unknown he has no history of chronic lung disease as a child or adolescent he denies nausea vomiting fevers chills or diarrhea. He admits to exposure to heavy smoke as a child as well as an adult. He is self smoked 3 packs per day for 56 years and continues to smoke up until 2 weeks ago. He served in [employer] for 20 years. 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 He denies angina-like chest pain he denies any recent travel he has 3 dogs sleeps on one pillow denies PND nocturnal cough or edema. He is unaware of any snoring but admits to some restless sleep nocturia 2 unrestful sleep and excessive daytime somnolence. He has had a history in the past of lung cancer as well as lymphoma and he is being followed by Dr. Douglass for both of these Past Medical History Cardiac Medical History: Reports: Hyperlipidema, Hypertension Denies: Congestive Heart Failure Pulmonary Medical History: Reports: Chronic Obstructive Pulmonary Disease (COPD) Denies: Asthma, Bronchitis, Pneumonia EENT Medical History: Denies: Ears, Nose Neurological Medical History: Denies: Hemorrhagic CVA, Ischemic CVA, Migraine, Multiple Sclerosis, Seizures Endocrine Medical History: Reports: Diabetes Mellitus Type 2 Denies: Gestational Diabetes, Hyperthyroidism, Hypothyroidism, Obesity Renal/ Medical History: Denies: Nephrolithiasis Malignancy Medical History: Reports: Leukemia - Currently on chemotherapy, Lung Cancer - RU lobectomy 08/2015, Lymphoma - on rx as in hpi GI Medical History: Denies: Cirrhosis, Crohn's Disease, Peptic Ulcer Disease, Ulcerative Colitis Musculoskeltal Medical History: Denies: Fibromyalgia, Gout Skin Medical History: Denies: Eczema, Psoriasis Psychiatric Medical History: Reports: Tobacco Dependency Hematology: Reports: Anemia Denies: Sickle Cell Disease Infectious Medical History: Denies: Hepatitis B, Hepatitis C Past Surgical History Past Surgical History: Reports: Other - R Upper lobectomy, BMBx Social History Smoking Status: Current Every Day Smoker Cigarettes Packs Per Day: 3 Number of Years Smokin Frequency of Alcohol Use: Rare Hx Recreational Drug Use: No Drugs: None Hx Prescription Drug Abuse: No - Advance Directive Resuscitation Status: Full Code Family History Family History: Reviewed & Not Pertinent, DM, Hypertension, Malignancy Parental Family History Reviewed: Yes Children Family History Reviewed: Yes Sibling(s) Family History Reviewed.: Yes Medication/Allergy Home Medications: Allopurinol [Zyloprim 300 mg Tablet] 300 mg PO DAILY 04/04/17 Amlodipine Besylate/Benazepril [Lotrel 10-40 mg Capsule] 1 cap PO DAILY Ascorbic Acid [Vitamin C] 1,000 mg PO DAILY 04/04/17 Aspirin [Ecotrin 81 mg EC Tablet] 81 mg PO DAILY 04/04/17 Atorvastatin Calcium [Lipitor 20 mg Tablet] 20 mg PO QHS 04/04/17 Fenofibrate Nanocrystallized [Tricor 145 mg Tablet] 145 mg PO QHS 04/04/17 Fluticasone Propionate [Flonase Nasal [place] 50 Mcg/[place] 16 gm] 1 spray NASL DAILY 04/04/17 Fluticasone/Salmeterol [Advair 100-50 Diskus 28 Dose] 1 puff IH Q12 04/04/17 Glimepiride [Amaryl] 2 mg PO DAILY 04/04/17 Multivitamin [Daily Multiple Vitamin] 1 tab PO DAILY 04/04/17 [place]-3 Fatty Acids/Fish Oil [[place] 3 Fish Oil Softgel] 1,000 mg PO DAILY Pregabalin [Lyrica 100 mg Capsule] 100 mg PO Q8 04/04/17 Sitagliptin Phos/Metformin HCl [Janumet 50-1,000 mg Tablet] 1 tab PO Q12 Tiotropium [place] [Spiriva Handihaler 18 mcg/dose (30 Dose)] 1 cap IH DAILY 08/16 Allergies/Adverse Reactions: No Known Allergies Allergy (Verified 07/04/15 07:28) Review of Systems Constitutional: PRESENT: weakness. ABSENT: chills, fever(s), headache(s), weight gain, weight loss Eyes: ABSENT: visual disturbances Ears: ABSENT: hearing changes Cardiovascular: PRESENT: dyspnea on exertion. ABSENT: chest pain, edema, orthropnea, palpitations Respiratory: PRESENT: cough, dyspnea. ABSENT: hemoptysis Gastrointestinal: ABSENT: abdominal pain, constipation, diarrhea, hematemesis, hematochezia, nausea, vomiting Genitourinary: ABSENT: dysuria, hematuria Musculoskeletal: ABSENT: joint swelling Integumentary: ABSENT: rash, wounds Neurological: ABSENT: abnormal gait, abnormal speech, confusion, dizziness, focal weakness, syncope Psychiatric: ABSENT: anxiety, depression, homidical ideation, suicidal ideation Endocrine: ABSENT: cold intolerance, heat intolerance, menstrual abnormalities, polydipsia, polyuria Hematologic/Lymphatic: ABSENT: easy bleeding, easy bruising, lymphadenopathy Physical Exam Vital Signs: Temp Pulse Resp BP Pulse Ox 97.8 F 77 30 H 115/57 L 96 04/04/17 09:19 04/04/17 09:36 04/04/17 11:01 04/04/17 11:01 04/04/17 11:01 Intake & Output 04/03/17 04/04/17 04/05/17 06:59 06:59 06:59 Weight 68.266 kg General appearance: PRESENT: mild distress, thin Head exam: PRESENT: atraumatic, normocephalic Eye exam: PRESENT: conjunctiva pink, EOMI, PERRLA. ABSENT: scleral icterus Ear exam: PRESENT: normal external ear exam Mouth exam: PRESENT: moist, tongue midline Neck exam: PRESENT: full ROM. ABSENT: carotid bruit, JVD, lymphadenopathy, thyromegaly Respiratory exam: PRESENT: decreased breath sounds, wheezes Cardiovascular exam: PRESENT: RRR. ABSENT: diastolic murmur, rubs, systolic murmur Pulses: PRESENT: normal dorsalis pedis pul, +2 pedal pulses bilateral Vascular exam: PRESENT: normal capillary refill GI/Abdominal exam: PRESENT: normal bowel sounds, soft. ABSENT: distended, guarding, mass, organolmegaly, rebound, tenderness Rectal exam: PRESENT: deferred Extremities exam: ABSENT: pedal edema Neurological exam: PRESENT: alert, awake, oriented to person, oriented to place , oriented to time, oriented to situation, CN II-XII grossly intact. ABSENT: motor sensory deficit Psychiatric exam: PRESENT: appropriate affect, normal mood. ABSENT: homicidal ideation, suicidal ideation Skin exam: PRESENT: dry, intact, warm. ABSENT: cyanosis, rash Results Laboratory Results: 04/04/17 05:35 04/04/17 05:35 04/03/17 04/03/17 04/04/17 20:06 21:23 05:35 WBC 2.6 L D RBC 3.79 L Hgb 11.8 L Hct 34.1 L MCV 90 MCH 31.1 MCHC 34.5 RDW 13.6 Plt Count 319 Carbonic Acid 2.34 H HCO3/H2CO3 Ratio 15:1 ABG pH 7.28 L ABG pCO2 77.9 H* ABG pO2 86.2 ABG HCO3 35.9 H ABG O2 Saturation 94.9 ABG Base Excess 6.9 FiO2 35% Sodium Potassium Chloride Carbon Dioxide Anion Gap BUN Creatinine Est GFR ( Amer) Est GFR (Non-Af Amer) Glucose Calcium Total Bilirubin AST ALT Alkaline Phosphatase Ammonia 9.0 Total Protein Albumin Triglycerides Cholesterol LDL Cholesterol Direct VLDL Cholesterol HDL Cholesterol 04/04/17 05:35 WBC RBC Hgb Hct MCV MCH MCHC RDW Plt Count Carbonic Acid HCO3/H2CO3 Ratio ABG pH ABG pCO2 ABG pO2 ABG HCO3 ABG O2 Saturation ABG Base Excess FiO2 Sodium 143.1 Potassium 5.4 H Chloride 96 L Carbon Dioxide 38 H Anion Gap 9 BUN 19 Creatinine 0.60 Est GFR ( Amer) > 60 Est GFR (Non-Af Amer) > 60 Glucose 265 H Calcium 10.4 H Total Bilirubin 0.4 AST 21 ALT 35 Alkaline Phosphatase 68 Ammonia Total Protein 6.0 L Albumin 3.3 L Triglycerides 122 Cholesterol 131.26 LDL Cholesterol Direct 76 VLDL Cholesterol 24.0 HDL Cholesterol 31 L 04/03/17 04/03/17 04/04/17 23:45 23:45 05:35 Creatine Kinase < 20 L < 20 L Troponin I 0.018 04/04/17 05:35 Creatine Kinase Troponin I 0.014 Impressions: Chest X-Ray 04/03/17 17:43 IMPRESSION: NO ACUTE RADIOGRAPHIC FINDING IN THE CHEST. Chest/Abdomen CTA 04/04/17 00:00 IMPRESSION: 1. No PE. 2. Reticular nodular pattern which could be due to infection, inflammation or lymphangitic spread of tumor. Assessment & Plan - Diagnosis (1) Acute and chronic respiratory failure Qualifiers: Respiratory failure complication: hypoxia and hypercapnia Qualified Code(s) : J96.21 - Acute and chronic respiratory failure with hypoxia; J96.22 - Acute and chronic respiratory failure with hypercapnia; J96.22 - Acute and chronic respiratory failure with hypercapnia; J96.22 - Acute and chronic respiratory failure with hypercapnia Is this a current diagnosis for this admission?: Yes Plan: Admit the patient in IMCU continues on the BiPAP and consult the pulmonary for further evaluations (2) COPD exacerbation Is this a current diagnosis for this admission?: Yes Plan: Continues to DuoNeb nebulizer treatments and IV Solu-Medrol (3) Hypoxia Is this a current diagnosis for this admission?: Yes Plan: We will get the CT angiogram to rule out any other etiology (4) Mantle cell lymphoma Qualifiers: Lymphoma site: multiple regions Qualified Code(s): C83.18 - Mantle cell lymphoma, lymph nodes of multiple sites Is this a current diagnosis for this admission?: Yes Plan: Consult the oncology for further evaluations (5) Pancytopenia due to antineoplastic chemotherapy Is this a current diagnosis for this admission?: Yes Plan: Currently getting the chemotherapy (6) Lung cancer Qualifiers: Laterality: right Is this a current diagnosis for this admission?: Yes Plan: This post surgery will get the CT of the chest - Time Time Spent: 30 to 50 Minutes Medications reviewed and adjusted accordingly: Yes Anticipated discharge: Other Within: Other - Inpatient Certification Medical Necessity: Need Close Monitoring Due to Risk of Patient Decompensation, Need for IV Antibiotics Post Hospital Care: D/C [employer] Documentation - Plan Summary Plan Summary: Admit the patient in IMCU see other MD orders
--- NOTE | 2017-04-04 14:18 | Physician Advisory Note ---
Physician Advisor ProgressNote .: Pursuant to the plan for Jeremías Wong, I have reviewed the medical record for this patient. Physician Advisor Statement: Nice documentation of Acute & Chronic Resp Failure - ED dr note documents labored breathing, hypoxemia in the 60s on RA (no O2 needed at baseline), tachypnea into the 60s, tachycardia in the 120s, rhonchi, wheezes. H&P documents continued mild distress, tachypnea, need for Bipap. ABG consistent with acute on chronic hypercapnia. Nice documentation of pancytopenia due to chemo. Please consider documentin. Dx for which txing with Cefepime & Levaquin - ?"Acute Bronchitis"? "Possible pneumonia from ___[organism]"? Status: appropriately Inpt. CK
[2017-04-04] MEDS: PREGABALIN 100 MG CAPSULE PO SCH ×2 (15:20→22:43)
[2017-04-04] MEDS ORDERED: (PENDING PHARMACY ID) (Sitagliptin Phos/Metformin Hcl [Janumet 50-1,000 Mg Tablet] 1 TAB) PO SCH (22:00)
[2017-04-04] MEDS: FENOFIBRATE NANOCRYSTALLIZED 145 MG TABLET PO SCH (22:24)
[2017-04-04] MEDS: ATORVASTATIN CALCIUM 20 MG TABLET PO SCH (22:24)
[2017-04-04] MEDS: LEVOFLOXACIN 750 MG/D5W RTU 750 MG/150 ML RTUPB IV SCH (22:25)
[2017-04-04] MEDS: FLUTICASONE/SALMETEROL DISKUS 100-50 MCG/DOSE IH SCH (22:44)
[2017-04-05] MEDS: METFORMIN HCL 500 MG TABLET PO SCH (01:09)
[2017-04-05] MEDS: SITAGLIPTIN PHOSPHATE 50 MG TABLET PO SCH (01:09)
[2017-04-05] MEDS: METHYLPREDNISOLONE INJ 125 MG/2 ML SDV IV SCH ×3 (01:55→17:48)
[2017-04-05] MEDS: IPRATROPIUM/ALBUTEROL 0.5-2.5 MG/3 ML AMPUL NEB SCH ×6 (04:24→23:54)
[2017-04-05] MEDS: PREGABALIN 100 MG CAPSULE PO SCH ×3 (05:46→23:34)
[2017-04-05 06:30] LABS: HEMATOCRIT 28.6 % (37.9-51.0); HEMOGLOBIN 9.9 g/dL (13.5-17.0); HGB HCT DIFFERENCE 1.1; MEAN CORPUSCULAR HEMOGLOBIN 31.5 pg (27.0-33.4); MEAN CORPUSCULAR HGB CONC 34.7 g/dL (32.0-36.0); MEAN CORPUSCULAR VOLUME 91 fl (80-97); RED BLOOD COUNT 3.15 10^6/uL (4.35-5.55); RED CELL DISTRIBUTION WIDTH 13.5 % (11.5-14.0); WHITE BLOOD COUNT 2.9 10^3/uL (4.0-10.5)
[2017-04-05 06:50] LABS: ALANINE AMINOTRANSFERASE 37 U/L (21-72); ALBUMIN 2.7 g/dL (3.5-5.0); ALKALINE PHOSPHATASE 75 U/L (38-126); ANION GAP 8 (5-19); ASPARTATE AMINO TRANSFERASE 24 U/L (17-59); BILIRUBIN,DIRECT 0.3 mg/dL (0.0-0.4); BILIRUBIN,TOTAL 0.3 mg/dL (0.2-1.3); BLOOD UREA NITROGEN 25 mg/dL (7-20); CALCIUM 9.5 mg/dL (8.4-10.2); CARBON DIOXIDE 36 mmol/L (22-30); CHLORIDE 96 mmol/L (98-107); POTASSIUM 5.2 mmol/L (3.6-5.0); SODIUM 139.6 mmol/L (137-145)
[2017-04-05 06:51] LABS: GLUCOSE 349 mg/dL (75-110)
--- NOTE | 2017-04-05 08:23 | PDOC PROGRESS REPORT ---
Subjective Progress Note for:: 04/05/17 Subjective:: Patient feeling much better this morning Reason For Visit: COPD ACUTE Physical Exam Vital Signs: Temp Pulse Resp BP Pulse Ox 97.7 F 71 29 H 119/57 L 100 04/05/17 07:44 04/05/17 07:44 04/05/17 07:44 04/05/17 07:44 04/05/17 07:44 Intake & Output 04/04/17 04/05/17 04/06/17 06:59 06:59 06:59 Intake Total 1290 Balance 1290 Weight 68.266 kg 69.9 kg General appearance: PRESENT: no acute distress, well-developed, well-nourished Head exam: PRESENT: atraumatic, normocephalic Eye exam: PRESENT: conjunctiva pink, EOMI, PERRLA. ABSENT: scleral icterus Ear exam: PRESENT: normal external ear exam Mouth exam: PRESENT: moist, tongue midline Neck exam: ABSENT: carotid bruit, JVD, lymphadenopathy, thyromegaly Respiratory exam: PRESENT: clear to auscultation kali. ABSENT: rales, rhonchi, wheezes Cardiovascular exam: PRESENT: RRR. ABSENT: diastolic murmur, rubs, systolic murmur Pulses: PRESENT: normal dorsalis pedis pul Vascular exam: PRESENT: normal capillary refill GI/Abdominal exam: PRESENT: normal bowel sounds, soft. ABSENT: distended, guarding, mass, organolmegaly, rebound, tenderness Rectal exam: PRESENT: deferred Extremities exam: PRESENT: full ROM. ABSENT: calf tenderness, clubbing, pedal edema Neurological exam: PRESENT: alert, awake, oriented to person, oriented to place , oriented to time, oriented to situation, CN II-XII grossly intact. ABSENT: motor sensory deficit Psychiatric exam: PRESENT: appropriate affect, normal mood. ABSENT: homicidal ideation, suicidal ideation Skin exam: PRESENT: dry, intact, warm. ABSENT: cyanosis, rash Results Laboratory Results: 04/05/17 05:17 04/05/17 05:17 04/05/17 04/05/17 05:17 05:17 WBC 2.9 L RBC 3.15 L Hgb 9.9 L Hct 28.6 L MCV 91 MCH 31.5 MCHC 34.7 RDW 13.5 Plt Count 277 Sodium 139.6 Potassium 5.2 H Chloride 96 L Carbon Dioxide 36 H Anion Gap 8 BUN 25 H Creatinine 0.60 Est GFR ( Amer) > 60 Est GFR (Non-Af Amer) > 60 Glucose 349 H Calcium 9.5 Total Bilirubin 0.3 AST 24 ALT 37 Alkaline Phosphatase 75 Total Protein 5.0 L Albumin 2.7 L 04/03/17 04/03/17 04/04/17 23:45 23:45 05:35 Creatine Kinase < 20 L < 20 L Troponin I 0.018 04/04/17 04/04/17 04/04/17 05:35 12:37 12:37 Creatine Kinase < 20 L Troponin I 0.014 < 0.012 Impressions: Chest X-Ray 04/03/17 17:43 IMPRESSION: NO ACUTE RADIOGRAPHIC FINDING IN THE CHEST. Chest/Abdomen CTA 04/04/17 00:00 IMPRESSION: 1. No PE. 2. Reticular nodular pattern which could be due to infection, inflammation or lymphangitic spread of tumor. Assessment & Plan - Diagnosis (1) Pancytopenia due to antineoplastic chemotherapy Is this a current diagnosis for this admission?: Yes Plan: Continued, will remain, will monitor with CBC daily only (2) Mantle cell lymphoma Qualifiers: Lymphoma site: multiple regions Qualified Code(s): C83.18 - Mantle cell lymphoma, lymph nodes of multiple sites Is this a current diagnosis for this admission?: Yes Plan: Further treatment plan as an outpatient, will get last cycle next week. - Time Time Spent with patient: 15-24 minutes
[2017-04-05 09:06] LABS: ARTERIAL BLOOD O2 SATURATION 97.7 % (94-98)
[2017-04-05] MEDS: INSULIN LISPRO 100 UNIT/ML 3 ML VIAL SUBCUT PRN ×3 (09:14→17:48)
[2017-04-05] MEDS: ENOXAPARIN SODIUM INJ 40 MG/0.4 ML DISP.SYRIN SUBCUT SCH (09:24)
[2017-04-05] MEDS: GLIMEPIRIDE 1 MG TABLET PO SCH (09:24)
[2017-04-05] MEDS: AMLODIPINE BESYLATE 10 MG TABLET PO SCH (09:29)
[2017-04-05] MEDS: ASCORBIC ACID 500 MG TABLET PO SCH (09:30)
[2017-04-05] MEDS: ASPIRIN 81 MG TABLET, ENT COATED PO SCH (09:31)
[2017-04-05] MEDS: BENAZEPRIL HCL 20 MG TABLET PO SCH (09:31)
[2017-04-05] MEDS: FLUTICASONE NASAL SPRAY 50 MCG/SPRY 120 SPRAY/16 GM NASL SCH (09:33)
[2017-04-05] MEDS: TIOTROPIUM BROMIDE DPI 5 CAP/KIT (18 MCG/CAP) IH SCH (09:34)
[2017-04-05] MEDS: FLUTICASONE/SALMETEROL DISKUS 100-50 MCG/DOSE IH SCH ×2 (09:34→23:21)
[2017-04-05] MEDS: CEFEPIME 1 GM/D5W RTU 1 GM/50 ML RTUPB IV SCH ×2 (09:35→23:20)
[2017-04-05] MEDS: DOCUSATE SODIUM 100 MG CAPSULE PO SCH (09:44)
[2017-04-05] MEDS ORDERED: (PENDING PHARMACY ID) (Amlodipine Besylate/Benazepril [Lotrel 10-40 Mg Capsule] 1 CAP) PO SCH (10:00)
[2017-04-05] MEDS: ALLOPURINOL 300 MG TABLET PO SCH (10:21)
--- NOTE | 2017-04-05 10:26 | PDOC PROGRESS REPORT ---
Subjective Progress Note for:: 04/05/17 Subjective:: Patient is feeling much better Patient's denied any chest pain denied any shortness of the breath CTA was negative for any PE Reason For Visit: COPD ACUTE Physical Exam Vital Signs: Temp Pulse Resp BP Pulse Ox 97.7 F 71 18 119/57 L 99 04/05/17 07:44 04/05/17 08:56 04/05/17 08:56 04/05/17 07:44 04/05/17 08:56 Intake & Output 04/04/17 04/05/17 04/06/17 06:59 06:59 06:59 Intake Total 1290 Balance 1290 Weight 68.266 kg 69.9 kg General appearance: PRESENT: no acute distress, well-developed, well-nourished Head exam: PRESENT: atraumatic, normocephalic Eye exam: PRESENT: conjunctiva pink, EOMI, PERRLA. ABSENT: scleral icterus Ear exam: PRESENT: normal external ear exam Mouth exam: PRESENT: moist, tongue midline Neck exam: PRESENT: full ROM. ABSENT: carotid bruit, JVD, lymphadenopathy, thyromegaly Respiratory exam: PRESENT: decreased breath sounds Cardiovascular exam: PRESENT: RRR. ABSENT: diastolic murmur, rubs, systolic murmur Pulses: PRESENT: normal dorsalis pedis pul, +2 pedal pulses bilateral Vascular exam: PRESENT: normal capillary refill GI/Abdominal exam: PRESENT: normal bowel sounds, soft. ABSENT: distended, guarding, mass, organolmegaly, rebound, tenderness Rectal exam: PRESENT: deferred Extremities exam: ABSENT: pedal edema Musculoskeletal exam: PRESENT: ambulatory Neurological exam: PRESENT: alert, awake, oriented to person, oriented to place , oriented to time, oriented to situation, CN II-XII grossly intact. ABSENT: motor sensory deficit Psychiatric exam: PRESENT: appropriate affect, normal mood. ABSENT: homicidal ideation, suicidal ideation Skin exam: PRESENT: dry, intact, warm. ABSENT: cyanosis, rash Results Laboratory Results: 04/05/17 05:17 04/05/17 05:17 04/05/17 04/05/17 04/05/17 05:17 05:17 08:49 WBC 2.9 L RBC 3.15 L Hgb 9.9 L Hct 28.6 L MCV 91 MCH 31.5 MCHC 34.7 RDW 13.5 Plt Count 277 Carbonic Acid 1.96 H HCO3/H2CO3 Ratio 19:1 ABG pH 7.40 ABG pCO2 65.0 H ABG pO2 106.5 H ABG HCO3 39.1 H ABG O2 Saturation 97.7 ABG Base Excess 12.0 FiO2 3L Sodium 139.6 Potassium 5.2 H Chloride 96 L Carbon Dioxide 36 H Anion Gap 8 BUN 25 H Creatinine 0.60 Est GFR ( Amer) > 60 Est GFR (Non-Af Amer) > 60 Glucose 349 H Calcium 9.5 Total Bilirubin 0.3 AST 24 ALT 37 Alkaline Phosphatase 75 Total Protein 5.0 L Albumin 2.7 L 04/03/17 04/03/17 04/04/17 23:45 23:45 05:35 Creatine Kinase < 20 L < 20 L Troponin I 0.018 04/04/17 04/04/17 04/04/17 05:35 12:37 12:37 Creatine Kinase < 20 L Troponin I 0.014 < 0.012 Impressions: Chest X-Ray 04/03/17 17:43 IMPRESSION: NO ACUTE RADIOGRAPHIC FINDING IN THE CHEST. Chest/Abdomen CTA 04/04/17 00:00 IMPRESSION: 1. No PE. 2. Reticular nodular pattern which could be due to infection, inflammation or lymphangitic spread of tumor. Assessment & Plan - Diagnosis (1) Acute and chronic respiratory failure Qualifiers: Respiratory failure complication: hypoxia and hypercapnia Qualified Code(s) : J96.21 - Acute and chronic respiratory failure with hypoxia; J96.22 - Acute and chronic respiratory failure with hypercapnia; J96.22 - Acute and chronic respiratory failure with hypercapnia; J96.22 - Acute and chronic respiratory failure with hypercapnia Is this a current diagnosis for this admission?: Yes Plan: Continues to BiPAP at night and currently follow with the Dr. Kelley (2) COPD exacerbation Is this a current diagnosis for this admission?: Yes Plan: Reduce the IV steroid (3) Hypoxia Is this a current diagnosis for this admission?: Yes Plan: We will get the CT angiogram to rule out any other etiology (4) Mantle cell lymphoma Qualifiers: Lymphoma site: multiple regions Qualified Code(s): C83.18 - Mantle cell lymphoma, lymph nodes of multiple sites Is this a current diagnosis for this admission?: Yes Plan: Consult the oncology for further evaluations (5) Pancytopenia due to antineoplastic chemotherapy Is this a current diagnosis for this admission?: Yes Plan: Currently getting the chemotherapy (6) Lung cancer Qualifiers: Laterality: right Is this a current diagnosis for this admission?: Yes - Time Time Spent with patient: 15-24 minutes Medications reviewed and adjusted accordingly: Yes Anticipated discharge: Home Within: Other - Inpatient Certification Medical Necessity: Need Close Monitoring Due to Risk of Patient Decompensation, Need for IV Antibiotics 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
--- NOTE | 2017-04-05 14:04 | PDOC PROGRESS REPORT ---
Subjective Progress Note for:: 04/05/17 Subjective:: Feeling a little better today Reason For Visit: COPD ACUTE Physical Exam Vital Signs: Temp Pulse Resp BP Pulse Ox 97.9 F 97 18 112/52 L 97 04/05/17 11:50 04/05/17 12:25 04/05/17 12:25 04/05/17 11:50 04/05/17 12:25 Intake & Output 04/04/17 04/05/17 04/06/17 06:59 06:59 06:59 Intake Total 1290 937 Balance 1290 937 Weight 68.266 kg 69.9 kg General appearance: PRESENT: no acute distress, cooperative, disheveled, thin, well-developed, well-nourished. ABSENT: hard of hearing, mild distress, morbidly obese, obese, severe distress Head exam: PRESENT: atraumatic, normocephalic Eye exam: PRESENT: conjunctiva pale, EOMI, PERRLA. ABSENT: conjunctival injection, conjunctiva pink, nystagmus, periorbital swelling, scleral icterus Mouth exam: PRESENT: dry mucosa, neck supple, tongue midline. ABSENT: laceration, moist Neck exam: ABSENT: carotid bruit, JVD, lymphadenopathy, thyromegaly, tracheal deviation, tracheostomy Respiratory exam: PRESENT: decreased breath sounds, prolonged expiratory phas, retraction, rhonchi, symmetrical, unlabored, wheezes. ABSENT: accessory muscle use, chest wall tenderness, clear to auscultation kali, crackles, rales, stridor , tachypnea Cardiovascular exam: PRESENT: RRR, +S1, +S2. ABSENT: rubs Pulses: PRESENT: normal radial pulses GI/Abdominal exam: PRESENT: normal bowel sounds, soft. ABSENT: distended, guarding, mass, organolmegaly, rebound, tenderness Extremities exam: ABSENT: calf tenderness, clubbing, joint swelling Musculoskeletal exam: ABSENT: deformity, dislocation, tenderness Neurological exam: PRESENT: alert, awake Psychiatric exam: PRESENT: normal mood Skin exam: PRESENT: dry, warm Results Laboratory Results: 04/05/17 05:17 04/05/17 05:17 04/05/17 04/05/17 04/05/17 05:17 05:17 08:49 WBC 2.9 L RBC 3.15 L Hgb 9.9 L Hct 28.6 L MCV 91 MCH 31.5 MCHC 34.7 RDW 13.5 Plt Count 277 Carbonic Acid 1.96 H HCO3/H2CO3 Ratio 19:1 ABG pH 7.40 ABG pCO2 65.0 H ABG pO2 106.5 H ABG HCO3 39.1 H ABG O2 Saturation 97.7 ABG Base Excess 12.0 FiO2 3L Sodium 139.6 Potassium 5.2 H Chloride 96 L Carbon Dioxide 36 H Anion Gap 8 BUN 25 H Creatinine 0.60 Est GFR ( Amer) > 60 Est GFR (Non-Af Amer) > 60 Glucose 349 H Calcium 9.5 Total Bilirubin 0.3 AST 24 ALT 37 Alkaline Phosphatase 75 Total Protein 5.0 L Albumin 2.7 L 04/03/17 04/03/17 04/04/17 23:45 23:45 05:35 Creatine Kinase < 20 L < 20 L Troponin I 0.018 04/04/17 04/04/17 04/04/17 05:35 12:37 12:37 Creatine Kinase < 20 L Troponin I 0.014 < 0.012 Impressions: Chest X-Ray 04/03/17 17:43 IMPRESSION: NO ACUTE RADIOGRAPHIC FINDING IN THE CHEST. Chest/Abdomen CTA 04/04/17 00:00 IMPRESSION: 1. No PE. 2. Reticular nodular pattern which could be due to infection, inflammation or lymphangitic spread of tumor. Assessment & Plan - Diagnosis (1) Acute and chronic respiratory failure Qualifiers: Respiratory failure complication: hypoxia and hypercapnia Qualified Code(s) : J96.21 - Acute and chronic respiratory failure with hypoxia; J96.22 - Acute and chronic respiratory failure with hypercapnia; J96.22 - Acute and chronic respiratory failure with hypercapnia; J96.22 - Acute and chronic respiratory failure with hypercapnia Is this a current diagnosis for this admission?: No (2) COPD exacerbation Is this a current diagnosis for this admission?: Yes Plan: Improving Generic Name Dose Route Start Last Admin Trade Name Freq PRN Reason Stop Dose Admin Methylprednisolone Sodium Succinate 125 mg 04/04/17 02:00 04/04/17 10:56 Solu-Medrol Inj/Pf 125 Mg/2 Ml Sdv IV 05/04/17 01:59 125 mg Q8A NELLIE Albuterol 2.5 mg 04/04/17 10:09 Ventolin 0.083% Neb 2.5 Mg/3 Ml Ampul NEB 05/04/17 10:08 [id number] PRN FOR WHEEZING Albuterol/Ipratropium 3 ml 04/04/17 12:00 Duoneb 3 Ml Ampul NEB 05/04/17 11:59 RTQ4 NELLIE (3) Hypoxia Is this a current diagnosis for this admission?: Yes Plan: Supplemental oxygen as needed keeping in mind 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 Douglass (5) Pancytopenia due to antineoplastic chemotherapy Is this a current diagnosis for this admission?: Yes
[2017-04-05] MEDS ORDERED: LEVOFLOXACIN 750 MG TABLET PO SCH (22:00)
[2017-04-05] MEDS: FENOFIBRATE NANOCRYSTALLIZED 145 MG TABLET PO SCH (23:21)
[2017-04-05] MEDS: ATORVASTATIN CALCIUM 20 MG TABLET PO SCH (23:21)
[2017-04-06] MEDS: METFORMIN HCL 500 MG TABLET PO SCH (01:25)
[2017-04-06] MEDS: SITAGLIPTIN PHOSPHATE 50 MG TABLET PO SCH (01:25)
[2017-04-06] MEDS: METHYLPREDNISOLONE INJ 125 MG/2 ML SDV IV SCH (01:40)
[2017-04-06] MEDS: IPRATROPIUM/ALBUTEROL 0.5-2.5 MG/3 ML AMPUL NEB SCH ×4 (04:00→16:08)
[2017-04-06 05:09] LABS: HEMATOCRIT 33.1 % (37.9-51.0); HEMOGLOBIN 11.5 g/dL (13.5-17.0); HGB HCT DIFFERENCE 1.4; MEAN CORPUSCULAR HEMOGLOBIN 31.1 pg (27.0-33.4); MEAN CORPUSCULAR HGB CONC 34.6 g/dL (32.0-36.0); MEAN CORPUSCULAR VOLUME 90 fl (80-97); RED BLOOD COUNT 3.68 10^6/uL (4.35-5.55); RED CELL DISTRIBUTION WIDTH 13.6 % (11.5-14.0)
[2017-04-06 05:15] LABS: WHITE BLOOD COUNT 6.4 10^3/uL (4.0-10.5)
[2017-04-06 05:22] LABS: ALANINE AMINOTRANSFERASE 35 U/L (21-72); ALBUMIN 3.4 g/dL (3.5-5.0); ALKALINE PHOSPHATASE 87 U/L (38-126); ANION GAP 14 (5-19); ASPARTATE AMINO TRANSFERASE 23 U/L (17-59); BILIRUBIN,DIRECT 0.3 mg/dL (0.0-0.4); BILIRUBIN,TOTAL 0.4 mg/dL (0.2-1.3); BLOOD UREA NITROGEN 27 mg/dL (7-20); CALCIUM 9.4 mg/dL (8.4-10.2); CARBON DIOXIDE 34 mmol/L (22-30); CHLORIDE 95 mmol/L (98-107); CREATININE RESULT 0.65 mg/dL (0.52-1.25); GLUCOSE 298 mg/dL (75-110); POTASSIUM 5.6 mmol/L (3.6-5.0); SODIUM 143.2 mmol/L (137-145); TOTAL PROTEIN 5.7 g/dL (6.3-8.2)
[2017-04-06] MEDS: PREGABALIN 100 MG CAPSULE PO SCH ×2 (06:18→13:29)
--- NOTE | 2017-04-06 07:38 | PDOC PROGRESS REPORT ---
Subjective Progress Note for:: 04/06/17 Subjective:: No acute events overnight Reason For Visit: Mantle cell lymphoma/pancytopenia Physical Exam Vital Signs: Temp Pulse Resp BP Pulse Ox 97.3 F 70 20 117/57 L 95 04/06/17 03:52 04/06/17 04:00 04/06/17 04:00 04/06/17 03:52 04/06/17 04:00 Intake & Output 04/05/17 04/06/17 04/07/17 06:59 06:59 06:59 Intake Total 1290 2994 Balance 1290 2994 Weight 69.9 kg 68.1 kg General appearance: PRESENT: no acute distress, well-developed, well-nourished Head exam: PRESENT: atraumatic, normocephalic Eye exam: PRESENT: conjunctiva pink, EOMI, PERRLA. ABSENT: scleral icterus Ear exam: PRESENT: normal external ear exam Mouth exam: PRESENT: moist, tongue midline Neck exam: ABSENT: carotid bruit, JVD, lymphadenopathy, thyromegaly Respiratory exam: PRESENT: clear to auscultation kali. ABSENT: rales, rhonchi, wheezes Cardiovascular exam: PRESENT: RRR. ABSENT: diastolic murmur, rubs, systolic murmur Pulses: PRESENT: normal dorsalis pedis pul Vascular exam: PRESENT: normal capillary refill GI/Abdominal exam: PRESENT: normal bowel sounds, soft. ABSENT: distended, guarding, mass, organolmegaly, rebound, tenderness Rectal exam: PRESENT: deferred Extremities exam: PRESENT: full ROM. ABSENT: calf tenderness, clubbing, pedal edema Neurological exam: PRESENT: alert, awake, oriented to person, oriented to place , oriented to time, oriented to situation, CN II-XII grossly intact. ABSENT: motor sensory deficit Psychiatric exam: PRESENT: appropriate affect, normal mood. ABSENT: homicidal ideation, suicidal ideation Skin exam: PRESENT: dry, intact, warm. ABSENT: cyanosis, rash Results Laboratory Results: 04/06/17 04:39 04/06/17 04:39 04/05/17 04/06/17 04/06/17 08:49 04:39 04:39 WBC 6.4 D RBC 3.68 L Hgb 11.5 L Hct 33.1 L MCV 90 MCH 31.1 MCHC 34.6 RDW 13.6 Plt Count 389 Carbonic Acid 1.96 H HCO3/H2CO3 Ratio 19:1 ABG pH 7.40 ABG pCO2 65.0 H ABG pO2 106.5 H ABG HCO3 39.1 H ABG O2 Saturation 97.7 ABG Base Excess 12.0 FiO2 3L Sodium 143.2 Potassium 5.6 H Chloride 95 L Carbon Dioxide 34 H Anion Gap 14 BUN 27 H Creatinine 0.65 Est GFR ( Amer) > 60 Est GFR (Non-Af Amer) > 60 Glucose 298 H Calcium 9.4 Total Bilirubin 0.4 AST 23 ALT 35 Alkaline Phosphatase 87 Total Protein 5.7 L Albumin 3.4 L 04/03/17 04/03/17 04/04/17 23:45 23:45 05:35 Creatine Kinase < 20 L < 20 L Troponin I 0.018 04/04/17 04/04/17 04/04/17 05:35 12:37 12:37 Creatine Kinase < 20 L Troponin I 0.014 < 0.012 Impressions: Chest X-Ray 04/03/17 17:43 IMPRESSION: NO ACUTE RADIOGRAPHIC FINDING IN THE CHEST. Chest/Abdomen CTA 04/04/17 00:00 IMPRESSION: 1. No PE. 2. Reticular nodular pattern which could be due to infection, inflammation or lymphangitic spread of tumor. Assessment & Plan - Diagnosis (1) Pancytopenia due to antineoplastic chemotherapy Is this a current diagnosis for this admission?: Yes Plan: Improved, will follow up as oupt (2) Mantle cell lymphoma Qualifiers: Lymphoma site: multiple regions Qualified Code(s): C83.18 - Mantle cell lymphoma, lymph nodes of multiple sites Is this a current diagnosis for this admission?: Yes Plan: We will set pt up for f/u next week in office, plan for chemo/rx as long as pt status is appropriate for treatment. We will sign off, thanks for opportunity to assist in pt's care - Time Time Spent with patient: 15-24 minutes Anticipated discharge: Home Within: within 24 hours
[2017-04-06] MEDS ORDERED: SODIUM POLYSTYRENE SULFONATE 15 GM/60 ML PO ONE (08:14)
[2017-04-06] MEDS: GLIMEPIRIDE 1 MG TABLET PO SCH (08:29)
[2017-04-06] MEDS: INSULIN LISPRO 100 UNIT/ML 3 ML VIAL SUBCUT PRN ×3 (09:12→17:46)
[2017-04-06] MEDS ORDERED: DOXYCYCLINE HYCLATE 100 MG TABLET PO SCH (10:00)
[2017-04-06] MEDS: BENAZEPRIL HCL 20 MG TABLET PO SCH (10:01)
[2017-04-06] MEDS: ENOXAPARIN SODIUM INJ 40 MG/0.4 ML DISP.SYRIN SUBCUT SCH (10:01)
[2017-04-06] MEDS: ASCORBIC ACID 500 MG TABLET PO SCH (10:03)
[2017-04-06] MEDS: ASPIRIN 81 MG TABLET, ENT COATED PO SCH (10:03)
[2017-04-06] MEDS: DOCUSATE SODIUM 100 MG CAPSULE PO SCH (10:04)
[2017-04-06] MEDS: AMLODIPINE BESYLATE 10 MG TABLET PO SCH (10:04)
[2017-04-06] MEDS: PREDNISONE 20 MG TABLET PO SCH ×2 (10:04→17:46)
[2017-04-06] MEDS: ALLOPURINOL 300 MG TABLET PO SCH (10:05)
[2017-04-06] MEDS: FLUTICASONE NASAL SPRAY 50 MCG/SPRY 120 SPRAY/16 GM NASL SCH (10:06)
[2017-04-06] MEDS: TIOTROPIUM BROMIDE DPI 5 CAP/KIT (18 MCG/CAP) IH SCH (10:06)
[2017-04-06] MEDS: FLUTICASONE/SALMETEROL DISKUS 100-50 MCG/DOSE IH SCH (10:06)
--- NOTE | 2017-04-06 12:04 | PDOC PROGRESS REPORT ---
Subjective Progress Note for:: 04/06/17 Subjective:: Patient is currently doing well Patient's very express to desire to go home Patient's denied any chest pain denied any shortness of the breath Reason For Visit: COPD ACUTE Physical Exam Vital Signs: Temp Pulse Resp BP Pulse Ox 97.4 F 73 18 118/57 L 97 04/06/17 07:42 04/06/17 08:38 04/06/17 08:38 04/06/17 07:42 04/06/17 08:38 Intake & Output 04/05/17 04/06/17 04/07/17 06:59 06:59 06:59 Intake Total 1290 2994 Balance 1290 2994 Weight 69.9 kg 68.1 kg General appearance: PRESENT: no acute distress, well-developed, well-nourished Head exam: PRESENT: atraumatic, normocephalic Eye exam: PRESENT: conjunctiva pink, EOMI, PERRLA. ABSENT: scleral icterus Ear exam: PRESENT: normal external ear exam Mouth exam: PRESENT: moist, tongue midline Neck exam: PRESENT: full ROM. ABSENT: carotid bruit, JVD, lymphadenopathy, thyromegaly Respiratory exam: PRESENT: clear to auscultation kali Cardiovascular exam: PRESENT: RRR. ABSENT: diastolic murmur, rubs, systolic murmur Pulses: PRESENT: normal dorsalis pedis pul, +2 pedal pulses bilateral Vascular exam: PRESENT: normal capillary refill GI/Abdominal exam: PRESENT: normal bowel sounds, soft. ABSENT: distended, guarding, mass, organolmegaly, rebound, tenderness Rectal exam: PRESENT: deferred Extremities exam: ABSENT: pedal edema Musculoskeletal exam: PRESENT: ambulatory Neurological exam: PRESENT: alert, awake, oriented to person, oriented to place , oriented to time, oriented to situation, CN II-XII grossly intact. ABSENT: motor sensory deficit Psychiatric exam: PRESENT: appropriate affect, normal mood. ABSENT: homicidal ideation, suicidal ideation Skin exam: PRESENT: dry, intact, warm. ABSENT: cyanosis, rash Results Laboratory Results: 04/06/17 04:39 04/06/17 04:39 04/06/17 04/06/17 04:39 04:39 WBC 6.4 D RBC 3.68 L Hgb 11.5 L Hct 33.1 L MCV 90 MCH 31.1 MCHC 34.6 RDW 13.6 Plt Count 389 Sodium 143.2 Potassium 5.6 H Chloride 95 L Carbon Dioxide 34 H Anion Gap 14 BUN 27 H Creatinine 0.65 Est GFR ( Amer) > 60 Est GFR (Non-Af Amer) > 60 Glucose 298 H Calcium 9.4 Total Bilirubin 0.4 AST 23 ALT 35 Alkaline Phosphatase 87 Total Protein 5.7 L Albumin 3.4 L 04/03/17 04/03/17 04/04/17 23:45 23:45 05:35 Creatine Kinase < 20 L < 20 L Troponin I 0.018 04/04/17 04/04/17 04/04/17 05:35 12:37 12:37 Creatine Kinase < 20 L Troponin I 0.014 < 0.012 Impressions: Chest X-Ray 04/03/17 17:43 IMPRESSION: NO ACUTE RADIOGRAPHIC FINDING IN THE CHEST. Chest/Abdomen CTA 04/04/17 00:00 IMPRESSION: 1. No PE. 2. Reticular nodular pattern which could be due to infection, inflammation or lymphangitic spread of tumor. Assessment & Plan - Diagnosis (1) Acute and chronic respiratory failure Qualifiers: Respiratory failure complication: hypoxia and hypercapnia Qualified Code(s) : J96.21 - Acute and chronic respiratory failure with hypoxia; J96.22 - Acute and chronic respiratory failure with hypercapnia; J96.22 - Acute and chronic respiratory failure with hypercapnia; J96.22 - Acute and chronic respiratory failure with hypercapnia Is this a current diagnosis for this admission?: No Plan: Currently all stable (2) COPD exacerbation Is this a current diagnosis for this admission?: Yes Plan: DC the IV Solu-Medrol and started on p.o. steroid (3) Hypoxia Is this a current diagnosis for this admission?: Yes Plan: 3 L oxygen at home (4) Mantle cell lymphoma Qualifiers: Lymphoma site: multiple regions Qualified Code(s): C83.18 - Mantle cell lymphoma, lymph nodes of multiple sites Is this a current diagnosis for this admission?: Yes Plan: Consult the oncology for further evaluations (5) Pancytopenia due to antineoplastic chemotherapy Is this a current diagnosis for this admission?: Yes (6) Lung cancer Qualifiers: Laterality: right Is this a current diagnosis for this admission?: Yes - Time Time Spent with patient: 15-24 minutes Medications reviewed and adjusted accordingly: Yes Anticipated discharge: Home Within: Other - Inpatient Certification Medical Necessity: Need Close Monitoring Due to Risk of Patient Decompensation 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
--- NOTE | 2017-04-06 14:53 | PDOC PROGRESS REPORT ---
Subjective Progress Note for:: 04/06/17 Subjective:: I feel better when can I go home? Reason For Visit: COPD ACUTE Physical Exam Vital Signs: Temp Pulse Resp BP Pulse Ox 97.9 F 77 14 129/59 H 100 04/06/17 11:51 04/06/17 12:47 04/06/17 12:47 04/06/17 11:51 04/06/17 11:51 Intake & Output 04/05/17 04/06/17 04/07/17 06:59 06:59 06:59 Intake Total 1290 2994 473 Balance 1290 2994 473 Weight 69.9 kg 68.1 kg General appearance: PRESENT: no acute distress, cooperative, disheveled, thin, well-developed. ABSENT: hard of hearing, mild distress, morbidly obese, obese, severe distress Head exam: PRESENT: atraumatic, normocephalic Eye exam: PRESENT: conjunctiva pale, EOMI. ABSENT: conjunctival injection, conjunctiva pink, nystagmus, periorbital swelling, scleral icterus Mouth exam: PRESENT: dry mucosa, neck supple, tongue midline. ABSENT: laceration, moist Teeth exam: PRESENT: poor dentation Neck exam: ABSENT: carotid bruit, JVD, lymphadenopathy, thyromegaly, tracheal deviation, tracheostomy Respiratory exam: PRESENT: decreased breath sounds, prolonged expiratory phas, rhonchi, symmetrical, unlabored, wheezes. ABSENT: accessory muscle use, chest wall tenderness, clear to auscultation kali, crackles, rales, retraction, stridor , tachypnea Cardiovascular exam: PRESENT: RRR, +S1, +S2. ABSENT: rubs Pulses: PRESENT: normal radial pulses GI/Abdominal exam: PRESENT: normal bowel sounds, soft. ABSENT: distended, guarding, mass, organolmegaly, rebound, tenderness Extremities exam: ABSENT: calf tenderness, clubbing, joint swelling Musculoskeletal exam: ABSENT: deformity, dislocation, tenderness Neurological exam: PRESENT: alert, awake Psychiatric exam: PRESENT: normal mood Skin exam: PRESENT: dry, warm Results Laboratory Results: 04/06/17 04:39 04/06/17 04:39 04/06/17 04/06/17 04:39 04:39 WBC 6.4 D RBC 3.68 L Hgb 11.5 L Hct 33.1 L MCV 90 MCH 31.1 MCHC 34.6 RDW 13.6 Plt Count 389 Sodium 143.2 Potassium 5.6 H Chloride 95 L Carbon Dioxide 34 H Anion Gap 14 BUN 27 H Creatinine 0.65 Est GFR ( Amer) > 60 Est GFR (Non-Af Amer) > 60 Glucose 298 H Calcium 9.4 Total Bilirubin 0.4 AST 23 ALT 35 Alkaline Phosphatase 87 Total Protein 5.7 L Albumin 3.4 L 04/03/17 04/03/17 04/04/17 23:45 23:45 05:35 Creatine Kinase < 20 L < 20 L Troponin I 0.018 04/04/17 04/04/17 04/04/17 05:35 12:37 12:37 Creatine Kinase < 20 L Troponin I 0.014 < 0.012 Impressions: Chest X-Ray 04/03/17 17:43 IMPRESSION: NO ACUTE RADIOGRAPHIC FINDING IN THE CHEST. Chest/Abdomen CTA 04/04/17 00:00 IMPRESSION: 1. No PE. 2. Reticular nodular pattern which could be due to infection, inflammation or lymphangitic spread of tumor. Assessment & Plan - Diagnosis (1) Acute and chronic respiratory failure Qualifiers: Respiratory failure complication: hypoxia and hypercapnia Qualified Code(s) : J96.21 - Acute and chronic respiratory failure with hypoxia; J96.22 - Acute and chronic respiratory failure with hypercapnia; J96.22 - Acute and chronic respiratory failure with hypercapnia; J96.22 - Acute and chronic respiratory failure with hypercapnia Is this a current diagnosis for this admission?: No (2) COPD exacerbation Is this a current diagnosis for this admission?: Yes Plan: Improving Generic Name Dose Route Start Last Admin Trade Name Freq PRN Reason Stop Dose Admin Methylprednisolone Sodium Succinate 125 mg 04/04/17 02:00 04/04/17 10:56 Solu-Medrol Inj/Pf 125 Mg/2 Ml Sdv IV 05/04/17 01:59 125 mg Q8A NELLIE Albuterol 2.5 mg 04/04/17 10:09 Ventolin 0.083% Neb 2.5 Mg/3 Ml Ampul NEB 05/04/17 10:08 [id number] PRN FOR WHEEZING Albuterol/Ipratropium 3 ml 04/04/17 12:00 Duoneb 3 Ml Ampul NEB 05/04/17 11:59 RTQ4 NELLIE (3) Hypoxia Is this a current diagnosis for this admission?: Yes Plan: 6 minute walk (4) Mantle cell lymphoma Qualifiers: Lymphoma site: multiple regions Qualified Code(s): C83.18 - Mantle cell lymphoma, lymph nodes of multiple sites Is this a current diagnosis for this admission?: Yes Plan: Per Dr. Douglass (5) Pancytopenia due to antineoplastic chemotherapy Is this a current diagnosis for this admission?: Yes
[2017-04-06 16:25] LABS: ALANINE AMINOTRANSFERASE 33 U/L (21-72); ALBUMIN 2.8 g/dL (3.5-5.0); ALKALINE PHOSPHATASE 83 U/L (38-126); ANION GAP 8 (5-19); ASPARTATE AMINO TRANSFERASE 21 U/L (17-59); BILIRUBIN,DIRECT 0.3 mg/dL (0.0-0.4); BILIRUBIN,TOTAL 0.3 mg/dL (0.2-1.3); BLOOD UREA NITROGEN 22 mg/dL (7-20); CALCIUM 9.2 mg/dL (8.4-10.2); CARBON DIOXIDE 37 mmol/L (22-30); CHLORIDE 95 mmol/L (98-107); CREATININE RESULT 0.76 mg/dL (0.52-1.25); GLUCOSE 307 mg/dL (75-110); SODIUM 139.6 mmol/L (137-145)
[2017-04-06 16:39] LABS: POTASSIUM 4.4 mmol/L (3.6-5.0)
[2017-04-06] MEDS ORDERED: GLIMEPIRIDE 1 MG TABLET PO SCH (17:00)
[2017-04-06 17:56] VITALS: BP 126/53
--- NOTE | 2017-04-07 09:02 | PDOC DISCHARGE SUMMARY ---
General - Admit/Disc Date/PCP Admission Date/Primary Care Provider: 04/03/17 19:42 FRANKLIN LEA MD Discharge Date: 04/07/17 - Discharge Diagnosis (1) Acute and chronic respiratory failure Is this a current diagnosis for this admission?: No Summary: Currently all stable (2) COPD exacerbation Is this a current diagnosis for this admission?: Yes Summary: Patient is currently on a baseline and patient expressed to go home and patient discharged with the oxygens (3) Hypoxia Is this a current diagnosis for this admission?: Yes Summary: Currently all resolved (4) Mantle cell lymphoma Is this a current diagnosis for this admission?: Yes Summary: Follow with oncology as outpatient (5) Pancytopenia due to antineoplastic chemotherapy Is this a current diagnosis for this admission?: Yes Summary: Currently stable (6) Lung cancer Is this a current diagnosis for this admission?: Yes - Additional Information Resuscitation Status: Full Code Discharge Diet: Diabetic Discharge Activity: Activity As Tolerated Home Medications: Allopurinol [Zyloprim 300 mg Tablet] 300 mg PO DAILY 04/04/17 Amlodipine Besylate/Benazepril [Lotrel 10-40 mg Capsule] 1 cap PO DAILY Ascorbic Acid [Vitamin C] 1,000 mg PO DAILY 04/04/17 Aspirin [Ecotrin 81 mg EC Tablet] 81 mg PO DAILY 04/04/17 Atorvastatin Calcium [Lipitor 20 mg Tablet] 20 mg PO QHS 04/04/17 Fenofibrate Nanocrystallized [Tricor 145 mg Tablet] 145 mg PO QHS 04/04/17 Fluticasone Propionate [Flonase Nasal [place] 50 Mcg/[place] 16 gm] 1 spray NASL DAILY 04/04/17 Fluticasone/Salmeterol [Advair 100-50 Diskus 28 Dose] 1 puff IH Q12 04/04/17 [place]-3 Fatty Acids/Fish Oil [[place] 3 Fish Oil Softgel] 1,000 mg PO DAILY Pregabalin [Lyrica 100 mg Capsule] 100 mg PO Q8 04/04/17 Sitagliptin Phos/Metformin HCl [Janumet 50-1,000 mg Tablet] 1 tab PO Q12 Tiotropium Howell [Spiriva Handihaler 18 mcg/dose (30 Dose)] 1 cap IH DAILY 08/16 Doxycycline Hyclate [Vibramycin 100 mg Tablet] 100 mg PO Q12 #14 tablet Glimepiride [Amaryl] 2 mg PO BID #0 04/06/17 Prednisone 20 mg PO DAILY #10 tablet 04/06/17 History of Present Illness History of Present Illness: 72-year-old male presents emergency room complaining increasing shortness of breath which should become progressive over the last 7-10 days but still cough sometimes productive light yellow phlegm he denies hemoptysis his PPD status was negative dates unknown he has no history of chronic lung disease as a child or adolescent he denies nausea vomiting fevers chills or diarrhea. He admits to exposure to heavy smoke as a child as well as an adult. He is self smoked 3 packs per day for 56 years and continues to smoke up until 2 weeks ago. He served in [employer] for 20 years. 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 He denies angina-like chest pain he denies any recent travel he has 3 dogs sleeps on one pillow denies PND nocturnal cough or edema. He is unaware of any snoring but admits to some restless sleep nocturia 2 unrestful sleep and excessive daytime somnolence. He has had a history in the past of lung cancer as well as lymphoma and he is being followed by Dr. Douglass for both of these Hospital Course Hospital Course: This 72-year-old male's with a significant COPD as above with a history of the lung cancer in the lymphoma came to the emergency department with a complaint was shortness of the breath and respiratory failure patient initially put on a BiPAPAnd given IV steroid and IV antibiotic Dr. Kelley the pulmonary was consulted and oncology was also consulted Patient's response very well with IV steroid and started the p.o. steroid and a p.o. antibiotic pt walk in the hallway and patient's p.o. intake is good good Patients at this point's expressed to go home because patient was some animal at home and patients currently on p.o. patient at this point discharge with the theater oxygen and close follow in office Physical Exam Vital Signs: Temp Pulse Resp BP Pulse Ox 97.8 F 83 20 126/53 H 100 04/06/17 17:53 04/06/17 17:53 04/06/17 17:53 04/06/17 17:53 04/06/17 17:53 Intake & Output 04/06/17 04/07/17 04/08/17 06:59 06:59 06:59 Intake Total 2994 473 Balance 2994 473 Weight 68.1 kg General appearance: PRESENT: no acute distress, well-developed, well-nourished Head exam: PRESENT: atraumatic, normocephalic Eye exam: PRESENT: conjunctiva pink, EOMI, PERRLA. ABSENT: scleral icterus Ear exam: PRESENT: normal external ear exam Mouth exam: PRESENT: moist, tongue midline Neck exam: PRESENT: full ROM. ABSENT: carotid bruit, JVD, lymphadenopathy, thyromegaly Respiratory exam: PRESENT: clear to auscultation kali Cardiovascular exam: PRESENT: RRR. ABSENT: diastolic murmur, rubs, systolic murmur Pulses: PRESENT: normal dorsalis pedis pul, +2 pedal pulses bilateral Vascular exam: PRESENT: normal capillary refill GI/Abdominal exam: PRESENT: normal bowel sounds, soft. ABSENT: distended, guarding, mass, organolmegaly, rebound, tenderness Rectal exam: PRESENT: deferred Extremities exam: ABSENT: full ROM, left AKA, right AKA, left BKA, right BKA, calf tenderness, joint swelling, pedal edema, tenderness, other Musculoskeletal exam: PRESENT: ambulatory Neurological exam: PRESENT: alert, awake, oriented to person, oriented to place , oriented to time, oriented to situation, CN II-XII grossly intact. ABSENT: motor sensory deficit Psychiatric exam: PRESENT: appropriate affect, normal mood. ABSENT: homicidal ideation, suicidal ideation Skin exam: PRESENT: dry, intact, warm. ABSENT: cyanosis, rash Results Laboratory Results: 04/06/17 04:39 04/06/17 15:38 04/06/17 15:38 Sodium 139.6 Potassium 4.4 D Chloride 95 L Carbon Dioxide 37 H Anion Gap 8 BUN 22 H Creatinine 0.76 Est GFR ( Amer) > 60 Est GFR (Non-Af Amer) > 60 Glucose 307 H Calcium 9.2 Total Bilirubin 0.3 AST 21 ALT 33 Alkaline Phosphatase 83 Total Protein 5.0 L Albumin 2.8 L 04/03/17 04/03/17 04/04/17 23:45 23:45 05:35 Creatine Kinase < 20 L < 20 L Troponin I 0.018 04/04/17 04/04/17 04/04/17 05:35 12:37 12:37 Creatine Kinase < 20 L Troponin I 0.014 < 0.012 Impressions: Chest X-Ray 04/03/17 17:43 IMPRESSION: NO ACUTE RADIOGRAPHIC FINDING IN THE CHEST. Chest/Abdomen CTA 04/04/17 00:00 IMPRESSION: 1. No PE. 2. Reticular nodular pattern which could be due to infection, inflammation or lymphangitic spread of tumor. Plan Time Spent: Greater than 30 Minutes - Discharge home with the oxygen and nebulizer machine and the tapering steroid Follow-up outpatients pulmonary and outpatients oncology
== END 2017-04-06 18:26 | disposition home or self-care (01) | DRG 190 ==
LOC: ER 16:37 → EH 19:42 → 3W 04-04 14:15
PROVIDERS: ADMIT Family Medicine; ATTEND Family Medicine
PROC: 5A09357 Assistance with Respiratory Ventilation, Less than 24 Consecutive Hours, Continuous Positive Airway Pressure (ICD-10-PCS; principal; 2017-04-03)
PROC: 3E0F73Z Introduction of Anti-inflammatory into Respiratory Tract, Via Natural or Artificial Opening (ICD-10-PCS; 2017-04-04)
DX: J44.1 Chronic obstructive pulmonary disease with (acute) exacerbation (principal); J96.21 Acute and chronic respiratory failure with hypoxia; D61.810 Antineoplastic chemotherapy induced pancytopenia; J96.22 Acute and chronic respiratory failure with hypercapnia; C34.90 Malignant neoplasm of unspecified part of unspecified bronchus or lung; C95.90 Leukemia, unspecified not having achieved remission; C83.18 Mantle cell lymphoma, lymph nodes of multiple sites; E78.5 Hyperlipidemia, unspecified; E11.9 Type 2 diabetes mellitus without complications; F17.210 Nicotine dependence, cigarettes, uncomplicated; I10 Essential (primary) hypertension; Z79.82 Long term (current) use of aspirin; Z79.899 Other long term (current) drug therapy; Z90.2 Acquired absence of lung [part of]; Z83.3 Family history of diabetes mellitus; Z80.9 Family history of malignant neoplasm, unspecified; Z82.49 Family history of ischemic heart disease and other diseases of the circulatory system
CPT/HCPCS: 36415; 36600; 71010; 71275; 80048; 80053; 80061; 80076; 81001; 82140; 82150; 82550; 82553; 82803; 82962; 83036; 83690; 83735; 83880; 84100; 84439; 84443; 84484; 85025; 85027; 85610; 85730; 87040; 87070; 87077; 87205; 93005; 93010; 94640; 94660; 96365; 96375; 99291; J0692; J0696; J1650; J1815; J1956; J2930; J3490; J7030; J7512; J7620

== ENCOUNTER → 2017-07-14 | Outpatient (CLI) | payer MEDICARE, OTHER ==
--- NOTE | 2017-07-14 14:16 | RADIOLOGY REPORT (SQ) ---
EXAM DESCRIPTION: CT CHEST WITH COMPLETED DATE/TIME: 07/14/2017 1:47 pm REASON FOR STUDY: MAL GUMARO OF UPPER LOBE, RIGHT BRONCHUS C34.11 MALIGNANT NEOPLASM OF UPPER LOBE, RI GHT BRONCHUS OR L C83.18 MANTLE CELL LYMPHOMA, LYMPH NODES OF MULTIPLE SITES COMPARISON: 04/04/2017 TECHNIQUE: CT scan of the chest performed using helical scanning technique with dynamic intravenous contrast injection. Images reviewed with lung, soft tissue and bone windows. Reconstructed coronal and sagittal MPR images reviewed. All images stored on PACS. All CT scanners at this facility use dose modulation, iterative reconstruction, and/or weight based d osing when appropriate to reduce radiation dose to as low as reasonably achievable (ALARA). [facility]: Dose Right [facility]: CareDose [facility]: Dose Right [facility]: Teradose 4D [facility]: [employer] CONTRAST TYPE AND DOSE: 79 cc Isovue 370- low osmolar. RENAL FUNCTION: BUN 16 creatinine 0.7 RADIATION DOSE: . LIMITATIONS: None. FINDINGS: LUNGS AND PLEURA: Apical pleural thickening on the right. There is a 9 mm nodule in the r ight upper lobe on image 25 that is more prominent than on the prior study. There is a pleural-based mass on the right at the same level. On image 27 this measures 19 mm in thickness. No other pulmon eric nodules are seen. There is a small right pleural effusion. HILAR AND MEDIASTINAL STRUCTURES: Calcified subcarinal lymph nodes are present. No significant media stinal or hilar adenopathy is present. HEART AND VASCULAR STRUCTURES: No aneurysm or dissection. No central pulmonary emboli. No pericardi al effusion. HARDWARE: None in the chest. UPPER ABDOMEN: See separate report of the CT of the abdomen. THYROID AND OTHER SOFT TISSUES: No masses. No adenopathy. BONES: No acute abnormality. OTHER: No other significant finding. IMPRESSION: 1. There is 9 mm right upper lobe pulmonary nodule that is more prominent than on the p rior study. 2. There is a pleural-based mass on the right in the upper hemithorax that appears to be stable. 3. Right apical pleural thickening. 4. Small right pleural effusion. TECHNICAL DOCUMENTATION: JOB ID: [id number] Quality ID # [id number]: Final reports with documentation of one or more dose reduction techniques (e.g., Au tomated exposure control, adjustment of the mA and/or kV according to patient size, use of iterative reconstruction technique) 2010 [employer]- All Rights Reserved Reading location - IP/workstation name: [email or web address]
--- NOTE | 2017-07-14 15:31 | RADIOLOGY REPORT (SQ) ---
EXAM DESCRIPTION: CT ABD/PELVIS WITH IV ONLY COMPLETED DATE/TIME: 07/14/2017 1:47 pm REASON FOR STUDY: MAL GUMARO OF UPPER LOBE, RIGHT BRONCHUS C34.11 MALIGNANT NEOPLASM OF UPPER LOBE, RI GHT BRONCHUS OR L C83.18 MANTLE CELL LYMPHOMA, LYMPH NODES OF MULTIPLE SITES COMPARISON: 10/22/2016. TECHNIQUE: CT scan of the abdomen and pelvis performed using helical scanning technique with dynamic intravenous contrast injection. No oral contrast. Images reviewed with lung, soft tissue, and bone windows. Reconstructed coronal and sagittal MPR images reviewed. Delayed images for evaluation of the urinary system also acquired. All images stored on PACS. All CT scanners at this facility use dose modulation, iterative reconstruction, and/or weight based d osing when appropriate to reduce radiation dose to as low as reasonably achievable (ALARA). [facility]: Dose Right [facility]: CareDose [facility]: Dose Right [facility]: Teradose 4D [facility]: [employer] CONTRAST TYPE AND DOSE: contrast/concentration: Isovue 370.00 mg/ml; Total Contrast Delivered: 79.0 ml; Total Saline Delivered: 68.0 ml RENAL FUNCTION: BUN 16 creatinine 0.7. RADIATION DOSE: CT Rad equipment meets quality standard of care and radiation dose reduction techniq ues were employed. CTDIvol: 5.1 - 5.5 mGy. DLP: 813 mGy-cm.. LIMITATIONS: None. FINDINGS: LOWER CHEST: See separate report of the CT of the chest. LIVER: Normal size. No masses. No dilated ducts. SPLEEN: Previously seen splenomegaly has resolved. The spleen currently measures 11 cm with prior me asurement of 20 cm. A few focal calcifications secondary to calcified granulomas as well as a cystic area laterally. No other focal lesions. PANCREAS: No masses. No significant calcifications. No adjacent inflammation or peripancreatic fluid collections. Pancreatic duct not dilated. GALLBLADDER: No identified stones by CT criteria. No inflammatory changes to suggest cholecystitis. ADRENAL GLANDS: No significant masses or asymmetry. RIGHT KIDNEY AND URETER: No solid masses. No significant calcifications. No hydronephrosis or hyd roureter. LEFT KIDNEY AND URETER: No solid masses. No significant calcifications. No hydronephrosis or hydr oureter. AORTA AND VESSELS: No aneurysm. No dissection. Renal arteries, SMA, celiac without stenosis. RETROPERITONEUM: No retroperitoneal adenopathy, hemorrhage or masses. BOWEL AND PERITONEAL CAVITY: No masses or inflammatory changes. No free fluid or peritoneal masses. APPENDIX: Normal. PELVIS: No mass. No free fluid. Normal bladder. ABDOMINAL WALL: No masses. No hernias. BONES: No significant or acute findings. OTHER: No other significant finding. IMPRESSION: 1. PREVIOUSLY SEEN SPLENOMEGALY HAS RESOLVED. CURRENTLY THE SPLEEN IS NORMAL IN SIZE. FOCAL CYSTIC LESION IN THE LATERAL ASPECT OF THE SPLEEN WITH NO OTHER FOCAL LESIONS. 2. PREVIOUSLY SEEN ADENOPATHY IN THE UPPER ABDOMEN AND IN THE RETROPERITONEUM/ AORTOCAVAL REGION HAS ALSO RESOLVED. CURRENTLY NO ABNORMAL LYMPH NODES IDENTIFIED. 3. NO OTHER SIGNIFICANT OR ACUTE FINDING IN THE ABDOMEN OR PELVIS ON CT SCAN WITH IV CONTRAST. TECHNICAL DOCUMENTATION: JOB ID: [id number] Quality ID # 436: Final reports with documentation of one or more dose reduction techniques (e.g., Au tomated exposure control, adjustment of the mA and/or kV according to patient size, use of iterative reconstruction technique) 2010 [employer]- All Rights Reserved Reading location - IP/workstation name: [email or web address]
== END ==
LOC: RAD 12:54
PROVIDERS: ATTEND Physician Assistant Medical
DX: C34.11 Malignant neoplasm of upper lobe, right bronchus or lung (principal); C83.18 Mantle cell lymphoma, lymph nodes of multiple sites
CPT/HCPCS: 71260; 74177

== ENCOUNTER → 2017-10-11 | Outpatient (CLI) | payer MEDICARE, OTHER ==
--- NOTE | 2017-10-11 11:10 | RADIOLOGY REPORT (SQ) ---
EXAM DESCRIPTION: CHEST PA/LATERAL COMPLETED DATE/TIME: 10/11/2017 10:41 am REASON FOR STUDY: PLEURAL EFFUSION, NOT ELSEWHERE CLASSIFIED COMPARISON: CT chest 06/11/2016, 04/04/2017 EXAM PARAMETERS: NUMBER OF VIEWS: two views TECHNIQUE: Digital Frontal and Lateral radiographic views of the chest acquired. RADIATION DOSE: NA LIMITATIONS: none FINDINGS: LUNGS AND PLEURA: Post right upper lobectomy. No acute infiltrates. No pleural effusion or pneumothorax. Stable right posterior costophrenic sulcus pleural thickening MEDIASTINUM AND HILAR STRUCTURES: Post right upper lobectomy with elevation of the right hilum. Left hilum and mediastinum are otherwise unremarkable. HEART AND VASCULAR STRUCTURES: Heart normal size. No evidence for failure. BONES: No acute findings. HARDWARE: None in the chest. OTHER: No other significant finding. IMPRESSION: Post right upper lobectomy. No acute findings TECHNICAL DOCUMENTATION: JOB ID: [id number] [employer]- All Rights Reserved Reading location - IP/workstation name: [email or web address]
== END ==
LOC: RAD 10:34
PROVIDERS: ATTEND Physician Assistant
DX: J90 Pleural effusion, not elsewhere classified (principal)
CPT/HCPCS: 71046

== ENCOUNTER → 2017-10-17 | Outpatient (CLI) | payer MEDICARE, OTHER ==
--- NOTE | 2017-10-17 12:02 | RADIOLOGY REPORT (SQ) ---
EXAM DESCRIPTION: CT CHEST WITH COMPLETED DATE/TIME: 10/17/2017 9:08 am REASON FOR STUDY: MANTEL CELL LYMPHOMA, LYMPH NODES OF MULTIPLE SITES C83.18 MANTLE CELL LYMPHOMA, LYMPH NODES OF MULTIPLE SITES C83.13 MANTLE CELL LYMPHOMA, INTRA-ABDOMINAL LYMPH NODES COMPARISON: 07/14/2017 TECHNIQUE: CT scan of the chest performed using helical scanning technique with dynamic intravenous contrast injection. Images reviewed with lung, soft tissue and bone windows. Reconstructed coronal and sagittal MPR images reviewed. All images stored on PACS. All CT scanners at this facility use dose modulation, iterative reconstruction, and/or weight based d osing when appropriate to reduce radiation dose to as low as reasonably achievable (ALARA). [facility]: Dose Right [facility]: CareDose [facility]: Dose Right [facility]: Teradose 4D [facility]: [employer] CONTRAST TYPE AND DOSE: See separate report. RENAL FUNCTION: See separate report. RADIATION DOSE: . LIMITATIONS: None. FINDINGS: LUNGS AND PLEURA: Status post right upper lobectomy. Right apical nodule measuring about 9 mm is unchanged. Adjacent rind of pleural thickening is stable. No new nodules. Stable trace rig ht pleural effusion. HILAR AND MEDIASTINAL STRUCTURES: Calcified mediastinal nodes. HEART AND VASCULAR STRUCTURES: No aneurysm or dissection. No central pulmonary emboli. No pericardi al effusion. HARDWARE: None in the chest. UPPER ABDOMEN: See separate report of the CT of the abdomen. THYROID AND OTHER SOFT TISSUES: No masses. No adenopathy. BONES: No significant finding. OTHER: No other significant finding. IMPRESSION: Stable right apical nodule and adjacent chronic pleural changes. TECHNICAL DOCUMENTATION: JOB ID: [id number] Quality ID # 436: Final reports with documentation of one or more dose reduction techniques (e.g., Au tomated exposure control, adjustment of the mA and/or kV according to patient size, use of iterative reconstruction technique) 2010 [employer]- All Rights Reserved Reading location - IP/workstation name: [email or web address]
--- NOTE | 2017-10-17 12:06 | RADIOLOGY REPORT (SQ) ---
EXAM DESCRIPTION: CT ABD/PELVIS WITH IV ONLY COMPLETED DATE/TIME: 10/17/2017 9:08 am REASON FOR STUDY: MANTEL CELL LYMPHOMA, LYMPH NODES OF MULTIPLE SITES C83.18 MANTLE CELL LYMPHOMA, LYMPH NODES OF MULTIPLE SITES C83.13 MANTLE CELL LYMPHOMA, INTRA-ABDOMINAL LYMPH NODES COMPARISON: 07/14/2017 TECHNIQUE: CT scan of the abdomen and pelvis performed using helical scanning technique with dynamic intravenous contrast injection. No oral contrast. Images reviewed with lung, soft tissue, and bone windows. Reconstructed coronal and sagittal MPR images reviewed. Delayed images for evaluation of the urinary system also acquired. All images stored on PACS. All CT scanners at this facility use dose modulation, iterative reconstruction, and/or weight based d osing when appropriate to reduce radiation dose to as low as reasonably achievable (ALARA). [facility]: Dose Right [facility]: CareDose [facility]: Dose Right [facility]: Teradose 4D [facility]: [employer] CONTRAST TYPE AND DOSE: contrast/concentration: Isovue 370.00 mg/ml; Total Contrast Delivered: 81.0 ml; Total Saline Delivered: 68.0 ml RENAL FUNCTION: Creatinine 0.9. RADIATION DOSE: CT Rad equipment meets quality standard of care and radiation dose reduction techniq ues were employed. CTDIvol: 5.1 - 5.6 mGy. DLP: 858 mGy-cm.. LIMITATIONS: None. FINDINGS: LOWER CHEST: See separate report of the CT of the chest. LIVER: Normal size. No masses. No dilated ducts. SPLEEN: Old granulomatous disease. 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 PANCREAS: No masses. No significant calcifications. No adjacent inflammation or peripancreatic fluid collections. Pancreatic duct not dilated. GALLBLADDER: No identified stones by CT criteria. No inflammatory changes to suggest cholecystitis. ADRENAL GLANDS: No significant masses or asymmetry. RIGHT KIDNEY AND URETER: No solid masses. No significant calcifications. No hydronephrosis or hyd roureter. LEFT KIDNEY AND URETER: No solid masses. No significant calcifications. No hydronephrosis or hydr oureter. AORTA AND VESSELS: No aneurysm. RETROPERITONEUM: No retroperitoneal adenopathy, hemorrhage or masses. BOWEL AND PERITONEAL CAVITY: No masses or inflammatory changes. No free fluid or peritoneal masses. APPENDIX: Not visualized. PELVIS: No mass. No free fluid. Normal bladder. ABDOMINAL WALL: No masses. No hernias. BONES: No acute findings. OTHER: No other significant finding. IMPRESSION: No acute findings in the abdomen or pelvis. TECHNICAL DOCUMENTATION: JOB ID: [id number] Quality ID # 436: Final reports with documentation of one or more dose reduction techniques (e.g., Au tomated exposure control, adjustment of the mA and/or kV according to patient size, use of iterative reconstruction technique) 2010 [employer]- All Rights Reserved Reading location - IP/workstation name: [email or web address]
== END ==
LOC: RAD 08:36
PROVIDERS: ATTEND Internal Medicine
DX: C83.18 Mantle cell lymphoma, lymph nodes of multiple sites (principal); C34.11 Malignant neoplasm of upper lobe, right bronchus or lung
CPT/HCPCS: 71260; 74177; 82565

== ENCOUNTER → 2018-02-09 | Outpatient (CLI) | payer MEDICARE, OTHER ==
--- NOTE | 2018-02-09 09:53 | RADIOLOGY REPORT (SQ) ---
EXAM DESCRIPTION: CT CHEST WITH COMPLETED DATE/TIME: 02/09/2018 8:26 am REASON FOR STUDY: LYMPHOMA, LUNG CA C83.18 MANTLE CELL LYMPHOMA, LYMPH NODES OF MULTIPLE SITES COMPARISON: 10/17/2017 TECHNIQUE: CT scan of the chest performed using helical scanning technique with dynamic intravenous contrast injection. Images reviewed with lung, soft tissue and bone windows. Reconstructed coronal and sagittal MPR and MIP images reviewed. All images stored on PACS. All CT scanners at this facility use dose modulation, iterative reconstruction, and/or weight based d osing when appropriate to reduce radiation dose to as low as reasonably achievable (ALARA). [facility]: Dose Right [facility]: CareDose [facility]: Dose Right [facility]: Teradose 4D [facility]: [employer] CONTRAST TYPE AND DOSE: See separate report of the same date. RENAL FUNCTION: See separate report of the same date. RADIATION DOSE: . LIMITATIONS: None. FINDINGS: LUNGS AND PLEURA: Status post right upper lobectomy. Stable 11 mm nodule and adjacent ban dlike scarring in the right apex. Bandlike scarring and pleural thickening in the right lower lung. Left lung is clear. HILAR AND MEDIASTINAL STRUCTURES: Calcified mediastinal nodes. HEART AND VASCULAR STRUCTURES: No aneurysm or dissection. No central pulmonary emboli. No pericardi al effusion. HARDWARE: None in the chest. UPPER ABDOMEN: See separate report of the CT of the abdomen. THYROID AND OTHER SOFT TISSUES: No masses. No adenopathy. BONES: No acute findings. OTHER: No other significant finding. IMPRESSION: Stable right apical nodule and adjacent scarring. TECHNICAL DOCUMENTATION: JOB ID: [id number] Quality ID # 436: Final reports with documentation of one or more dose reduction techniques (e.g., Au tomated exposure control, adjustment of the mA and/or kV according to patient size, use of iterative reconstruction technique) 2010 [employer]- All Rights Reserved Reading location - IP/workstation name: [email or web address]
--- NOTE | 2018-02-09 10:14 | RADIOLOGY REPORT (SQ) ---
EXAM DESCRIPTION: CT ABD/PELVIS WITH IV ONLY COMPLETED DATE/TIME: 02/09/2018 8:26 am REASON FOR STUDY: LYMPHOMA, LUNG CA C83.18 MANTLE CELL LYMPHOMA, LYMPH NODES OF MULTIPLE SITES COMPARISON: None. TECHNIQUE: CT scan of the abdomen and pelvis performed using helical scanning technique with dynamic intravenous contrast injection. No oral contrast. Images reviewed with lung, soft tissue, and bone windows. Reconstructed coronal and sagittal MPR images reviewed. Delayed images for evaluation of the urinary system also acquired. All images stored on PACS. All CT scanners at this facility use dose modulation, iterative reconstruction, and/or weight based d osing when appropriate to reduce radiation dose to as low as reasonably achievable (ALARA). [facility]: Dose Right [facility]: CareDose [facility]: Dose Right [facility]: Teradose 4D [facility]: [employer] CONTRAST TYPE AND DOSE: contrast/concentration: Isovue 350.00 mg/ml; Total Contrast Delivered: 80.0 ml; Total Saline Delivered: 68.0 ml RENAL FUNCTION: Creatinine 0.8 RADIATION DOSE: CT Rad equipment meets quality standard of care and radiation dose reduction techniq ues were employed. CTDIvol: 5.4 - 5.9 mGy. DLP: 870 mGy-cm.. LIMITATIONS: None. FINDINGS: LOWER CHEST: See separate report of the CT of the chest. LIVER: Normal size. No masses. No dilated ducts. SPLEEN: Stable infarct or cyst. Old granulomatous disease. PANCREAS: No masses. No significant calcifications. No adjacent inflammation or peripancreatic fluid collections. Pancreatic duct not dilated. GALLBLADDER: No identified stones by CT criteria. No inflammatory changes to suggest cholecystitis. ADRENAL GLANDS: No significant masses or asymmetry. RIGHT KIDNEY AND URETER: No solid masses. No significant calcifications. No hydronephrosis or hyd roureter. LEFT KIDNEY AND URETER: No solid masses. No significant calcifications. No hydronephrosis or hydr oureter. AORTA AND VESSELS: No aneurysm. RETROPERITONEUM: No retroperitoneal adenopathy, hemorrhage or masses. BOWEL AND PERITONEAL CAVITY: No masses or inflammatory changes. No free fluid or peritoneal masses. APPENDIX: Normal. PELVIS: No mass. No free fluid. Normal bladder. ABDOMINAL WALL: No masses. No hernias. BONES: No acute findings. OTHER: No other significant finding. IMPRESSION: No evidence of metastatic disease. TECHNICAL DOCUMENTATION: JOB ID: [id number] Quality ID # [id number]: Final reports with documentation of one or more dose reduction techniques (e.g., Au tomated exposure control, adjustment of the mA and/or kV according to patient size, use of iterative reconstruction technique) 2010 [employer]- All Rights Reserved Reading location - IP/workstation name: [email or web address]
== END ==
LOC: RAD 07:48
PROVIDERS: ATTEND Internal Medicine
DX: C83.18 Mantle cell lymphoma, lymph nodes of multiple sites (principal); C34.11 Malignant neoplasm of upper lobe, right bronchus or lung
CPT/HCPCS: 71260; 74177; 82565

== ENCOUNTER → 2018-05-30 | Outpatient (CLI) | payer MEDICARE, OTHER ==
--- NOTE | 2018-05-30 10:56 | RADIOLOGY REPORT (SQ) ---
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 Images reviewed with lung, soft tissue and bone windows. Reconstructed coronal and sagittal MPR and MIP images reviewed. All images stored on PACS. All CT scanners at this facility use dose modulation, iterative reconstruction, and/or weight based d osing when appropriate to reduce radiation dose to as low as reasonably achievable (ALARA). [facility]: Dose Right [facility]: CareDose [facility]: Dose Right [facility]: Teradose 4D [facility]: [employer] CONTRAST TYPE AND DOSE: Omnipaque 350 87 cc RENAL FUNCTION: Creatinine 0.7 RADIATION DOSE: . LIMITATIONS: None. FINDINGS: LUNGS AND PLEURA: Postsurgical changes from the right upper lobectomy. There is increased size of the a apical nodule on the right measuring up to 1.3 cm (series 6, image 20), previously 1.1 cm. Additionally there is increased size of the left upper lobe spiculated nodule measuring up to 1 .0 cm (series 6, image 69), previously measuring 6 mm. Additional irregular area of consolidation wi thin the left lower lobe has increased in size measuring 2 point 4 cm, previously 1.5 cm (series 6, i mage 43). There is increased centrilobular and tree-in-bud opacities within the peripheral right low er lobe. Stable small right pleural effusion. No pneumothorax. HILAR AND MEDIASTINAL STRUCTURES: Postsurgical changes from the right upper lobectomy. Unchanged harjinder cified right hilar nodes. No new mediastinal, hilar or axillary adenopathy. HEART AND VASCULAR STRUCTURES: No significant pericardial effusion. Normal heart size. HARDWARE: None in the chest. UPPER ABDOMEN: See separate report of the CT of the abdomen. THYROID AND OTHER SOFT TISSUES: No masses. No adenopathy. BONES: No significant finding. OTHER: No other significant finding. IMPRESSION: 1. Postsurgical changes from the right upper lobectomy. Increased size of the right ap ical nodule measuring up to 1.3 cm, previously 1.1 cm suspicious for disease. 2. Additional increase in size of left upper lobe spiculated nodule now measuring up to 1.0 cm and i rregular left lower lobe spiculated consolidation measuring up to 2.4 cm and also suspicious for neop lasm. 3. Increased right lower lobe centrilobular and tree-in-bud opacities suggestive of infectious/infla mmatory etiology. TECHNICAL DOCUMENTATION: JOB ID: [id number] Quality ID # 436: Final reports with documentation of one or more dose reduction techniques (e.g., Au tomated exposure control, adjustment of the mA and/or kV according to patient size, use of iterative reconstruction technique) 2010 [employer]- All Rights Reserved Reading location - IP/workstation name: [email or web address]
--- NOTE | 2018-05-30 11:26 | RADIOLOGY REPORT (SQ) ---
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 No oral contrast. Images reviewed with lung, soft tissue, and bone windows. Reconstructed coronal and sagittal MPR images reviewed. Delayed images for evaluation of the urinary system also acquired. All images stored on PACS. All CT scanners at this facility use dose modulation, iterative reconstruction, and/or weight based d osing when appropriate to reduce radiation dose to as low as reasonably achievable (ALARA). [facility]: Dose Right [facility]: CareDose [facility]: Dose Right [facility]: Teradose 4D [facility]: [employer] CONTRAST TYPE AND DOSE: contrast/concentration: Isovue 350.00 mg/ml; Total Contrast Delivered: 87.0 ml; Total Saline Delivered: 69.0 ml 87 cc Omnipaque 350 RENAL FUNCTION: Creatinine 0.7 RADIATION DOSE: CT Rad equipment meets quality standard of care and radiation dose reduction techniq ues were employed. CTDIvol: 5.3 - 5.8 mGy. DLP: 840 mGy-cm.. LIMITATIONS: None. FINDINGS: LOWER CHEST: See separate report of the CT of the chest. LIVER: Normal size. No masses. No dilated ducts. SPLEEN: Scattered calcified granuloma. Unchanged peripheral area of hypoattenuation, likely from yuly or infarct or trauma. PANCREAS: No masses. No significant calcifications. No adjacent inflammation or peripancreatic fluid collections. Pancreatic duct not dilated. GALLBLADDER: No identified stones by CT criteria. No inflammatory changes to suggest cholecystitis. ADRENAL GLANDS: No significant masses or asymmetry. RIGHT KIDNEY AND URETER: No solid masses. No significant calcifications. No hydronephrosis or hyd roureter. LEFT KIDNEY AND URETER: No solid masses. No significant calcifications. No hydronephrosis or hydr oureter. AORTA AND VESSELS: Aortoiliac atherosclerosis. No aneurysm. RETROPERITONEUM: No retroperitoneal adenopathy, hemorrhage or masses. BOWEL AND PERITONEAL CAVITY: No masses or inflammatory changes. No free fluid or peritoneal masses. APPENDIX: Normal. PELVIS: No mass. No free fluid. Normal bladder. ABDOMINAL WALL: No masses. No hernias. BONES: No significant or acute findings. OTHER: No other significant finding. IMPRESSION: No evidence of metastatic disease or other acute intra-abdominal/pelvic process. TECHNICAL DOCUMENTATION: JOB ID: [id number] Quality ID # 436: Final reports with documentation of one or more dose reduction techniques (e.g., Au tomated exposure control, adjustment of the mA and/or kV according to patient size, use of iterative reconstruction technique) 2010 [employer]- All Rights Reserved Reading location - IP/workstation name: [email or web address]
== END ==
LOC: RAD 09:07
PROVIDERS: ATTEND Internal Medicine
DX: C83.18 Mantle cell lymphoma, lymph nodes of multiple sites (principal); I70.0 Atherosclerosis of aorta
CPT/HCPCS: 71260; 74177; 82565

== ENCOUNTER → 2018-06-11 | Outpatient (CLI) | payer MEDICARE, OTHER ==
--- NOTE | 2018-06-12 09:21 | RADIOLOGY REPORT (SQ) ---
EXAM DESCRIPTION: PET CT SKULL/THIGH COMPLETED DATE/TIME: 06/11/2018 9:03 pm REASON FOR STUDY: LUNG CANCER C34.11 MALIGNANT NEOPLASM OF UPPER LOBE, RIGHT BRONCHUS OR L COMPARISON: None. RADIONUCLIDE AND DOSE: 10.55 mCi F18 FDG The route of agent administration: Intravenous FASTING BLOOD SUGAR: 86 mg/dl CONTRAST TYPE AND DOSE: No CT contrast given. TECHNIQUE: Blood glucose level was verified. Above dose of FDG was injected intravenously. 2-D seg mented attenuation correction images were obtained from the base of the skull to the midthighs. Nonc ontrast CT images were obtained for attenuation correction and fusion with emission images. CT image s were performed without oral or intravenous contrast and are not sensitive for parenchymal lesions. A series of overlapping emission PET images were obtained. Images reviewed and manipulated at [facility] work station by the radiologist. Images stored on PACS. LIMITATIONS: None. FINDINGS: HEAD AND NECK: No areas of abnormal metabolic activity in the soft tissues of the head and neck. CHEST: Right apical nodule 7.0 SUV 1.3 cm. Larger left upper lobe pleural-based nodule 4.7 SUV. Rig ht lower lung subcentimeter nodules 2.2 SUV. ABDOMEN AND PELVIS: No areas of abnormal metabolic activity in the abdomen or pelvis. Expected physi ologic activity is present in the genitourinary system and bowel. PROXIMAL LOWER EXTREMITIES: No areas of abnormal metabolic activity in the soft tissues of the lower extremities. BONES: No abnormal metabolic activity in the visualized skeleton. ADDITIONAL CT FINDINGS: No additional significant findings on the noncontrast CT images. OTHER: No other significant findings. IMPRESSION: Hypermetabolic right apical and left upper lobe nodules suspicious for malignancy. TECHNICAL DOCUMENTATION: JOB ID: [id number] [employer]- All Rights Reserved Reading location - IP/workstation name: [email or web address]
== END ==
LOC: RAD 16:23
PROVIDERS: ATTEND Internal Medicine
DX: C34.11 Malignant neoplasm of upper lobe, right bronchus or lung (principal)
CPT/HCPCS: 78815; A9552

== ENCOUNTER 2018-07-19 06:12 | Day surgery (SDC) | payer MEDICARE, OTHER ==
[~2018-07-19 06:12] MED LIST: CEFAZOLIN 1 GM/D5W RTU 1 GM/50 ML RTUPB IV ONE; CEFAZOLIN 1 GM/D5W RTU 1 GM/50 ML RTUPB IV PRN; DIAZEPAM 5 MG TABLET ONE; DIAZEPAM 5 MG TABLET PO PRN; OXYCODONE-ACETAMINOPHEN 5-325 MG TABLET ONE; OXYCODONE-ACETAMINOPHEN 5-325 MG TABLET PO PRN
[2018-07-19 07:17] LABS: HEMATOCRIT 36.7 % (37.9-51.0); HEMOGLOBIN 12.5 g/dL (13.5-17.0); MEAN CORPUSCULAR HEMOGLOBIN 31.1 pg (27.0-33.4); MEAN CORPUSCULAR VOLUME 91 fl (80-97); PLATELET COUNT 337 10^3/uL (150-450); RED BLOOD COUNT 4.02 10^6/uL (4.35-5.55); WHITE BLOOD COUNT 11.4 10^3/uL (4.0-10.5)
[2018-07-19 07:18] LABS: ANION GAP 9 (5-19); BLOOD UREA NITROGEN 20 mg/dL (7-20); CALCIUM 10.5 mg/dL (8.4-10.2); CARBON DIOXIDE 30 mmol/L (22-30); CHLORIDE 102 mmol/L (98-107); GLUCOSE 147 mg/dL (75-110); POTASSIUM 4.5 mmol/L (3.6-5.0); SODIUM 141.2 mmol/L (137-145)
[2018-07-19] MEDS ORDERED: LIDOCAINE 0.5% INJ-PF (5 MG/ML) 50 ML SDV ONE (07:23)
[2018-07-19] MEDS ORDERED: BACITRACIN INJ 50,000 UNIT VIAL ONE (07:24)
[2018-07-19 07:35] LABS: ABSOLUTE LYMPHOCYTES# (MANUAL) 0.5 10^3/uL (0.5-4.7); ABSOLUTE MONOCYTES # (MANUAL) 1.1 10^3/uL (0.1-1.4); ABSOLUTE NEUTROPHILS# (MANUAL) 9.5 10^3/uL (1.7-8.2); BASOPHILS % (MANUAL) 0 % (0-2); EOSINOPHILS % (MANUAL) 3 % (0-6); LYMPHOCYTES % (MANUAL) 4 % (13-45); MONOCYTES % (MANUAL) 10 % (3-13); SEGMENTED NEUTROPHILS % (MAN) 83 % (42-78); TOTAL CELLS COUNTED 100
[2018-07-19 07:36] LABS: ANISOCYTOSIS SLIGHT; OVALOCYTES SLIGHT; PLATELET COMMENT ADEQUATE; POIKILOCYTOSIS SLIGHT; TOXIC GRANULATION SLIGHT; TOXIC VACUOLATION PRESENT
[2018-07-19] MEDS ORDERED: MIDAZOLAM 2 MG/2 ML INJ ONE (07:39)
[2018-07-19] MEDS ORDERED: FENTANYL CITRATE INJ/PF 100 MCG/2 ML AMPUL ONE (07:40)
--- NOTE | 2018-07-19 08:10 | RADIOLOGY REPORT (SQ) ---
EXAM DESCRIPTION: CHEST SINGLE VIEW COMPLETED DATE/TIME: 07/19/2018 7:42 am REASON FOR STUDY: preop COMPARISON: CT chest dated 05/30/2018, chest x-ray dated 07/04/2015 EXAM PARAMETERS: NUMBER OF VIEWS: One view. TECHNIQUE: Single frontal radiographic view of the chest acquired. RADIATION DOSE: NA LIMITATIONS: None. FINDINGS: LUNGS AND PLEURA: There chronic postoperative changes in the right lung apex and right cos tophrenic angle. On the left there is a spiculated lesion which sits posterior to the left hilum bes t demonstrated on recent CT chest. There is some focal patchy airspace disease in the left base new from prior CT this could represent infectious or inflammatory process. No definite effusions. MEDIASTINUM AND HILAR STRUCTURES: No masses. Contour normal. HEART AND VASCULAR STRUCTURES: Heart normal in size. Normal vasculature. BONES: No acute findings. HARDWARE: None in the chest. OTHER: No other significant finding. IMPRESSION: 1. Left retro hilar spiculated mass as demonstrated on recent CT. 2. Patchy airspace disease in the left base new from prior study. Pneumonia cannot be excluded. 3. Postsurgical changes in the right hemithorax. TECHNICAL DOCUMENTATION: JOB ID: [id number] [employer]- All Rights Reserved Reading location - IP/workstation name: [email or web address]
--- NOTE | 2018-07-19 09:04 | RADIOLOGY REPORT (SQ) ---
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 FLUOROSCOPY TIME: 0.1 minutes Spot images saved to PACS. TECHNIQUE: Intra-operative images acquired during surgical procedure to evaluate progress. NUMBER OF IMAGES: 20 LIMITATIONS: None. FINDINGS: Fluoroscopy was provided for intraoperative procedure. Please refer to the operative repo rt for further discussion. IMPRESSION: IMAGE(S) OBTAINED DURING PROCEDURE. COMMENT: Quality ID 145: Final reports for procedures using fluoroscopy that document radiation exp osure indices, or exposure time and number of fluorographic images (if radiation exposure indices are not available) Please consult full operative report of the attending physician for description of the procedure. TECHNICAL DOCUMENTATION: JOB ID: [id number] [employer]- All Rights Reserved Reading location - IP/workstation name: [email or web address]
--- NOTE | 2018-07-19 09:06 | Discharge Summary ---
Discharge Summary (SDC) - Discharge Final Diagnosis: Lung cancer. Date of Surgery: 07/19/18 Discharge Date: 07/19/18 Condition: Fair Treatment or Instructions: Discharge home [after recovery per ASU criteria]. Diet , as tolerated, when fully awake advance as tolerated. Activities within moderation encouraged. Follow up in my office by appointment in about [1 week]. Call for appointment. Leave wounds [covered], [keep clean and dry, until office visit in 1 week]. Hold of on school/work [until evaluation in office]. Meds per med rec. May shower [in 48 hrs], [try to keep operated area as dry as possible]. Referrals: FRANKLIN LEA MD [Primary Care Provider] - Discharge Diet: As Tolerated Respiratory Treatments at Home: Deep Breathing/Coughing Discharge Activity: Activity As Tolerated Report the Following to Your Physician Immediately: Shortness of Breath, Unusual Bleeding
--- NOTE | 2018-07-19 09:08 | Operative Report ---
Operative Report DATE OF SURGERY: 07/19/18 PREOPERATIVE DIAGNOSIS: Lung cancer. POSTOPERATIVE DIAGNOSIS: Lung cancer. OPERATION: 1. Ultrasound evaluation of the right internal jugular vein. 2. Insertion of single lumen Port-A-Cath via real-time ultrasound guidance into the right internal jugular vein. 3. Angiogram and interpretation. SURGEON: MAVERICK GODINEZ SIGN WRITER HAND: None. ANESTHESIA: Moderate Sedation TISSUE REMOVED OR ALTERED: Not applicable. COMPLICATIONS: None. ESTIMATED BLOOD LOSS: 5 mL. INTRAOPERATIVE FINDINGS: Of a satisfactory right internal jugular vein. Satisfactory access position with the tip at about this superior vena cava atrial border. Smooth flow of contrast into the right atrium noted. Postprocedure x-ray demonstrated catheter in good position, no apparent untoward problems. PROCEDURE: After obtaining informed consent, the patient was taken to the [operating room] and positioned supine. The [right] neck and chest were prepared with chlorhexidine and draped out with sterile linen. After the " universal timeout", in which it was verified that the patient continued to receive antibiotic, the procedure commenced. A steriley sheathed ultrasound probe was used to evaluate the [right] internal jugular vein. Local anesthesia was infiltrated adjacent to the probe. Access into the [right] internal jugular vein was obtained using a micropuncture needle, followed by micropuncture wire and then a micropuncture catheter. This was followed by introduction of a 0.035 guidewire the tip of which was placed down into the inferior vena cava . The port sites was marked , locally anesthetized and incision made. Dissection now proceeded to the deep subcutaneous subcutaneous tissues so that a pocket for the port was made. Meticulous hemostasis was secured and the catheter was tunneled between the 2 incisions. Proximally, the catheter was now positioned using a peel-away sheath. Distally the catheter was tailored to an appropriate length and then mated to the port using the contained fixating device. The port was now placed in the pocket and the catheter optimally positioned. The port was accessed with a Álvarez needle and an angiogram done under digital subtraction. The findings as dictated. With adequate and satisfactory positioning, the lumen of the chamber was irrigated with heparinized solution. The wounds were now closed using interrupted 3-0 PDS to the subcutaneous tissues and a continuous subcuticular suture of 4-0 Monocryl to the skin. These are reinforced with Steri-Strips over benzoin and then dressings applied. Time: 0.1 minute. Dose: 0.56 m Gy Contrast: 5 Mls. Isovue 300. Copies of the dictated operative report for Dr. Maverick Meehan MD.
[2018-07-19 11:54] VITALS: BP 116/66
== END 2018-07-19 10:10 | disposition home or self-care (01) ==
LOC: CCL 06:12
PROVIDERS: ATTEND Surgery
DX: C34.11 Malignant neoplasm of upper lobe, right bronchus or lung (principal); E11.9 Type 2 diabetes mellitus without complications; I10 Essential (primary) hypertension; Z85.828 Personal history of other malignant neoplasm of skin; J44.9 Chronic obstructive pulmonary disease, unspecified; F17.210 Nicotine dependence, cigarettes, uncomplicated; Z79.51 Long term (current) use of inhaled steroids; Z79.899 Other long term (current) drug therapy; Z79.82 Long term (current) use of aspirin; Z79.84 Long term (current) use of oral hypoglycemic drugs; C83.10 Mantle cell lymphoma, unspecified site
CPT/HCPCS: 36415; 85025; 80048; 36561; 76937; 77001; 71045; C1752; C1788; Q9967; J2250; J3490 ×2; J0690; A9270 ×2; J3010; J1644

== ENCOUNTER → 2018-09-08 | Outpatient (CLI) | payer MEDICARE, OTHER ==
--- NOTE | 2018-09-08 09:23 | RADIOLOGY REPORT (SQ) ---
EXAM DESCRIPTION: CT CHEST WITH; CT ABD/PELVIS WITH IV ONLY COMPLETED DATE/TIME: 09/08/2018 8:24 am; 09/08/2018 8:25 am REASON FOR STUDY: MALIGNANT NEOPLASM OF UPPER LOBE, RIGHT BRONCHUS OR LUNG C34.11 MALIGNANT NEOPLAS M OF UPPER LOBE, RIGHT BRONCHUS OR L COMPARISON: PET-CT 06/11/2018 CT chest abdomen and pelvis 05/30/2018, 02/09/2018, 10/17/2017 CONTRAST TYPE AND DOSE: contrast/concentration: Isovue 350.00 mg/ml; Total Contrast Delivered: 78.0 ml; Total Saline Delivered: 67.0 ml RENAL FUNCTION: Creatinine 0.7 TECHNIQUE: CT scan of the chest performed using helical scanning technique with dynamic intravenous contrast injection. Images reviewed with lung, soft tissue and bone windows. Reconstructed coronal a nd sagittal MPR images reviewed. All images stored on PACS. CT scan of the abdomen and pelvis performed with intravenous and without oral contrastusing helical s cornleio technique with dynamic intravenous contrast injection. Images reviewed with lung, soft tissu e and bone windows. Reconstructed coronal and sagittal MPR images reviewed. Delayed images for eval uation of the urinary system also acquired and evaluated. All images stored on PACS. All CT scanners at this facility use dose modulation, iterative reconstruction, and/or weight based d osing when appropriate to reduce radiation dose to as low as reasonably achievable (ALARA). [facility]: Dose Right [facility]: CareDose [facility]: Dose Right [facility]: Teradose 4D [facility]: [employer] RADIATION DOSE: CT Rad equipment meets quality standard of care and radiation dose reduction techniq ues were employed. CTDIvol: 4.7 - 4.8 mGy. DLP: 750 mGy-cm. . LIMITATIONS: None. FINDINGS: CHEST: LUNGS AND PLEURA: Patient is post old right upper lobectomy. There is a row of vanessa along the right lung apex with a 13 mm nodule along its dorsal aspect on ax ial image 21. This nodule was hypermetabolic on the prior PET-CT 06/11/2018, and is unchanged in size compared to 05/30/2018 and 06/11/2018 (this nodule was 9 mm diameter on 10/17/2017) There is a 1.4 cm spiculated nodule in the anterior left lung apex on axial image 15 which was hyperm etabolic on prior PET-CT. This was 1 cm in diameter on 05/30/2018 and is new compared to 10/17/2017. In the superior segment left lower lobe, a 2.7 cm nodule is present with surrounding radiotherapy brenda atment markers. This was hypermetabolic on prior PET-CT, measured 2.4 cm in size on CT 05/30/2018, an d 13 mm in diameter on 10/17/2017. There is scarring in the periphery of the right lung base. Minimal metabolic activity was seen along its medial aspect on prior PET-CT. Lung parenchymal changes of obstructive disease, bronchiolitis at the right lung base are stable. St able trace right pleural fluid. HILAR AND MEDIASTINAL STRUCTURES: No worrisome adenopathy. Heavily calcified sub- carinal lymph node unchanged. HEART AND VASCULAR STRUCTURES: No aneurysm or dissection. No central pulmonary emboli. No pericardi al effusion. Calcifications aortic valve HARDWARE: Right jugular permanent central line tip superior vena cava THYROID AND OTHER SOFT TISSUES: No masses. No adenopathy. BONES: No significant finding. OTHER: No other significant finding. ABDOMEN AND PELVIS: LIVER: Normal size. No masses. No dilated ducts. SPLEEN: Normal size. No focal lesions. PANCREAS: No masses. No significant calcifications. No adjacent inflammation or peripancreatic fluid collections. Pancreatic duct not dilated. GALLBLADDER: No identified stones by CT criteria. No inflammatory changes to suggest cholecystitis. ADRENAL GLANDS: No significant masses or asymmetry. RIGHT KIDNEY AND URETER: No solid masses. No significant calcification. No hydronephrosis or hydroure ter. LEFT KIDNEY AND URETER: No solid masses. No significant calcification. No hydronephrosis or hydrouret er. AORTA AND VESSELS: No aneurysm. No dissection. Renal arteries, SMA, celiac without stenosis. RETROPERITONEUM: No retroperitoneal adenopathy, hemorrhage or masses. BOWEL AND PERITONEAL CAVITY: No masses or inflammatory changes. No free fluid or peritoneal masses. APPENDIX: Normal. ABDOMINAL WALL: No masses. No hernias. PELVIS: No mass or free fluid. Normal bladder. BONES: No significant or acute findings. OTHER: No other significant finding. IMPRESSION: Lung nodules bilaterally as above Otherwise, no CT evidence of widespread metastatic disease given history of lung cancer TECHNICAL DOCUMENTATION: JOB ID: [id number] Quality ID # [id number]: Final reports with documentation of one or more dose reduction techniques (e.g., Au tomated exposure control, adjustment of the mA and/or kV according to patient size, use of iterative reconstruction technique) 2010 [employer]- All Rights Reserved Reading location - IP/workstation name: [email or web address]
== END ==
LOC: RAD 07:51
PROVIDERS: ATTEND Internal Medicine
DX: C34.11 Malignant neoplasm of upper lobe, right bronchus or lung (principal)
CPT/HCPCS: 71260; 74177

== ENCOUNTER 2018-10-13 15:18 | Emergency (ER) | payer MEDICARE, OTHER ==
--- NOTE | 2018-10-13 16:08 | ER Document Report ---
ED Medical Screen (RME) - General Chief Complaint: Shortness Of Breath Stated Complaint: SHORTNESS OF BREATH Time Seen by Provider: 10/13/18 15:55 Primary Care Provider: DAVID JUAN MD [Primary Care Provider] - Follow up as needed Mode of Arrival: Ambulatory Information source: Patient Notes: Patient is a 73-year-old male with a history of stage IV lung cancer who presents to the ER today for continued shortness of breath and coughing after being treated by Dr. Juan, his oncologist for possible COPD exacerbation on top of his current lung cancer with Medrol Dosepak, antibiotics, nebulizers that he states he is taking at home. Dr. Juan did call and advise that he was coming in, likely admission for IV steroids as he is not really improving. Della ent just had his last chemo 2 days ago. TRAVEL OUTSIDE OF THE [place] IN LAST 30 DAYS: No - Related Data Allergies/Adverse Reactions: No Known Allergies Allergy (Verified 07/19/18 06:42) Past Medical History - General Information source: Patient - Social History Frequency of alcohol use: None Drug Abuse: None - Past Medical History Cardiac Medical History: Reports: Hx Hypercholesterolemia, Hx Hypertension Denies: Hx Congestive Heart Failure Pulmonary Medical History: Reports: Hx COPD Denies: Hx Asthma, Hx Bronchitis, Hx Pneumonia Neurological Medical History: Denies: Hx Migraine, Hx Seizures Endocrine Medical History: Reports: Hx Diabetes Mellitus Type 2. Denies: Hx Hyperthyroidism, Hx Hypothyroidism Renal/ Medical History: Denies: Hx Peritoneal Dialysis Malignancy Medical History: Reports Hx Leukemia - Currently on chemotherapy, Reports Hx Lung Cancer - RU lobectomy 08/2015, Reports Hx Lymphoma - on rx as in hpi GI Medical History: Denies: Hx Cirrhosis, Hx Crohn's Disease, Hx Ulcerative Coli tis Musculoskeltal Medical History: Denies Hx Fibromyalgia, Denies Hx Gout Skin Medical History: Denies Hx Eczema, Denies Hx Psoriasis Past Surgical History: Reports: Other - R Upper lobectomy, BMBx - Immunizations Hx Diphtheria, Pertussis, Tetanus Vaccination: No History of Influenza Vaccine for 01/2017 - 06/2017 Season: Yes Influenza Administration Date for 01/2017 - 06/2017 Season: 01/30/17 Review of Systems - Review of Systems Respiratory: See HPI Physical Exam - Vital signs Vitals: Temp Pulse Resp BP Pulse Ox 97.6 F 124 H 24 H 128/74 H 95 10/13/18 15:24 10/13/18 15:24 10/13/18 15:24 10/13/18 15:24 10/13/18 15:24 - Notes Notes: PHYSICAL EXAMINATION: GENERAL: Chronically ill-appearing and in no acute distress. LUNGS: Cough, rhonchorous throughout, HEART: Tachycardic with regular rhythm without murmurs Course - Vital Signs Vital signs: Temp Pulse Resp BP Pulse Ox 97.6 F 124 H 24 H 128/74 H 95 10/13/18 15:24 10/13/18 15:24 10/13/18 15:24 10/13/18 15:24 10/13/18 15:24 Doctor's Discharge - Discharge Referrals: DAVID JUAN MD [Primary Care Provider] - Follow up as needed
[2018-10-13] MEDS ORDERED: METHYLPREDNISOLONE INJ 125 MG/2 ML SDV IV ONE (16:59)
[2018-10-13] MEDS ORDERED: IPRATROPIUM/ALBUTEROL 0.5-2.5 MG/3 ML AMPUL NEB ONE (17:00)
--- NOTE | 2018-10-13 17:03 | RADIOLOGY REPORT (SQ) ---
EXAM DESCRIPTION: CHEST 2 VIEWS COMPLETED DATE/TIME: 10/13/2018 4:36 pm REASON FOR STUDY: lung ca, copd exacerbation COMPARISON: 07/29/2018 TECHNIQUE: Frontal and lateral radiographic views of the chest acquired. NUMBER OF VIEWS: Two view. LIMITATIONS: None. FINDINGS: LUNGS AND PLEURA: No pneumothorax. Similar chronic right scarring -volume loss. Mild inc reased interstitial thickening. No acute consolidation or pleural effusion. MEDIASTINUM AND HILAR STRUCTURES: Stable. HEART AND VASCULAR STRUCTURES: Stable. BONES: No acute findings. HARDWARE: Right chest port. OTHER: No other significant finding. IMPRESSION: Mild increased interstitial thickening. No acute consolidation or pleural effusion. TECHNICAL DOCUMENTATION: JOB ID: [id number] [id number] 2010 [employer]- All Rights Reserved Reading location - IP/workstation name: [email or web address]
[2018-10-13 18:22] LABS: ALANINE AMINOTRANSFERASE 33 U/L (21-72); ALBUMIN 3.3 g/dL (3.5-5.0); ALKALINE PHOSPHATASE 62 U/L (38-126); ANION GAP 5 (5-19); ASPARTATE AMINO TRANSFERASE 31 U/L (17-59); BILIRUBIN,DIRECT 0.2 mg/dL (0.0-0.4); BILIRUBIN,TOTAL 0.6 mg/dL (0.2-1.3); BLOOD UREA NITROGEN 13 mg/dL (7-20); CALCIUM 9.8 mg/dL (8.4-10.2); CARBON DIOXIDE 35 mmol/L (22-30); CHLORIDE 97 mmol/L (98-107); GLUCOSE 135 mg/dL (75-110); POTASSIUM 4.1 mmol/L (3.6-5.0); SODIUM 136.9 mmol/L (137-145); TOTAL PROTEIN 5.4 g/dL (6.3-8.2)
--- NOTE | 2018-10-13 18:31 | EKG REPORT ---
SEVERITY:- ABNORMAL ECG - SINUS RHYTHM LEFT ANTERIOR FASCICULAR BLOCK : Confirmed by: Devin Luevano MD 13-Oct-2018 18:30:53
[2018-10-13 18:34] LABS: NT PRO BNP 37 pg/mL (5-900)
[2018-10-13 18:36] LABS: TROPONIN I < 0.012 ng/mL
[2018-10-13] MEDS ORDERED: MAGNESIUM SULFATE/D5W 1 GM/100 ML RTUPB IV ONE (19:17)
[2018-10-13 19:28] LABS: ABSOLUTE LYMPHOCYTES (AUTO) 0.3 10^3/uL (0.5-4.7); ABSOLUTE MONOCYTES (AUTO) 0.5 10^3/uL (0.1-1.4); ABSOLUTE NEUT (AUTO) 5.6 10^3/uL (1.7-8.2); BASOPHILS % (AUTO) 0.5 % (0-2); EOSINOPHILS % (AUTO) 0.7 % (0-6); HEMATOCRIT 34.3 % (37.9-51.0); HEMOGLOBIN 11.7 g/dL (13.5-17.0); LYMPHOCYTES % (AUTO) 5.1 % (13-45); MEAN CORPUSCULAR HEMOGLOBIN 32.2 pg (27.0-33.4); MEAN CORPUSCULAR VOLUME 95 fl (80-97); MONOCYTES % (AUTO) 7.7 % (3-13); PLATELET COUNT 221 10^3/uL (150-450); RED BLOOD COUNT 3.62 10^6/uL (4.35-5.55); RED CELL DISTRIBUTION WIDTH 17.3 % (11.5-14.0); TOTAL CELLS COUNTED % (AUTO) 100 %; WHITE BLOOD COUNT 6.5 10^3/uL (4.0-10.5)
--- NOTE | 2018-10-13 21:11 | ER Document Report ---
ED General - General Chief Complaint: Shortness Of Breath Stated Complaint: SHORTNESS OF BREATH Time Seen by Provider: 10/13/18 15:55 Primary Care Provider: DAVID JUAN MD [Primary Care Provider] - Follow up as needed Mode of Arrival: Ambulatory TRAVEL OUTSIDE OF THE [place] IN LAST 30 DAYS: No - HPI Notes: Patient is a 73-year-old male, with a history of COPD and lung cancer, currently receiving chemotherapy, who presents to the emergency department for evaluation of difficulty breathing. Is been ongoing for the last several weeks. He has been treated with steroids and antibiotics as an outpatient, but he continues to feel short of breath. His oncologist, Dr. Juan, urged him to come to the ED. He denies any fever or chills. He has a chronic cough. He denies any nausea or vomiting. He states he is really not having any pain. - Related Data Allergies/Adverse Reactions: No Known Allergies Allergy (Verified 07/19/18 06:42) Past Medical History - General Information source: Patient - Social History Smoking Status: Current Every Day Smoker Frequency of alcohol use: None Drug Abuse: None Family History: Reviewed & Not Pertinent, DM, Hypertension, Malignancy Patient has suicidal ideation: No Patient has homicidal ideation: No - Past Medical History Cardiac Medical History: Reports: Hx Hypercholesterolemia, Hx Hypertension Denies: Hx Congestive Heart Failure Pulmonary Medical History: Reports: Hx COPD Denies: Hx Asthma, Hx Bronchitis, Hx Pneumonia Neurological Medical History: Denies: Hx Migraine, Hx Seizures Endocrine Medical History: Reports: Hx Diabetes Mellitus Type 2. Denies: Hx Hyperthyroidism, Hx Hypothyroidism Renal/ Medical History: Denies: Hx Peritoneal Dialysis Malignancy Medical History: Reports Hx Leukemia - Currently on chemotherapy, Reports Hx Lung Cancer - RU lobectomy 08/2015, Reports Hx Lymphoma - on rx as in hpi GI Medical History: Denies: Hx Cirrhosis, Hx Crohn's Disease, Hx Ulcerative Colitis Musculoskeletal Medical History: Denies Hx Fibromyalgia, Denies Hx Gout Skin Medical History: Denies Hx Eczema, Denies Hx Psoriasis Past Surgical History: Reports: Other - R Upper lobectomy, BMBx - Immunizations Hx Diphtheria, Pertussis, Tetanus Vaccination: No Hx Pneumococcal Vaccination: 01/31/12 Review of Systems - Review of Systems Constitutional: No symptoms reported EENT: No symptoms reported Cardiovascular: No symptoms reported Respiratory: See HPI Gastrointestinal: No symptoms reported Genitourinary: No symptoms reported Musculoskeletal: No symptoms reported Skin: No symptoms reported Neurological/Psychological: No symptoms reported Physical Exam - Vital signs Vitals: Temp Pulse Resp BP Pulse Ox 97.6 F 124 H 24 H 128/74 H 95 10/13/18 15:24 10/13/18 15:24 10/13/18 15:24 10/13/18 15:24 10/13/18 15:24 - Notes Notes: This is a 73-year-old male who appears his stated age, no acute distress. Is mildly cachectic. Vital signs reviewed, please refer to chart. Head is normocephalic, atraumatic. Pupils equal round, reactive to light. Neck is supple without meningismus. Heart is regular rate and rhythm. Lungs reveal expiratory wheezes and prolonged expiratory phase throughout. Abdomen is soft, nontender, normoactive bowel sounds throughout. Extremities without cyanosis, clubbing. Posterior calves are nontender. Peripheral pulses are equal. Skin is warm and dry. Patient is awake, alert, neurological exam is nonfocal. Course - Re-evaluation Re-evalutation: 10/13/18 21:08 Patient presents to the emergency department for evaluation. He had laboratory investigations, EKG, imaging, treatments as ordered. EKG was unremarkable for any acute findings. Chest x-ray failed to reveal any infiltrates or pulmonary edema. Laboratory investigations were largely unremarkable. After magnesium, steroids, breathing treatment, patient is feeling remarkably improved. We had a long discussion regarding disposition. The patient has O2 at home. He has a nebulizer, is not vomiting so can tolerate prednisone, and the oral is bioequivalent to the IV steroid form. We discussed his options. I am concerned about the possibility of exposing him to hospital acquired infection by admitting into the hospital. He states he is feeling much improved. He is oxygenating well. He is not having any respiratory distress, and subjectively feels improved. At this point, I will go ahead and treat him as an outpatient with further steroids. He was just recently treated with antibiotics. I will put him on a prolonged taper. He will see Dr. Juan on Tuesday for chemo. He is told certainly if he develops worsening or new concerning symptoms of any sort, he is to return to the emergency department for reevaluation. He voiced understanding and was discharged. - Vital Signs Vital signs: Temp Pulse Resp BP Pulse Ox 97.6 F 124 H 17 121/67 97 10/13/18 15:24 10/13/18 15:24 10/13/18 18:01 10/13/18 19:00 10/13/18 19:01 - Laboratory Result Diagrams: 10/13/18 17:35 10/13/18 17:35 Laboratory results interpreted by me: 10/13/18 10/13/18 17:35 17:35 RBC 3.62 L Hgb 11.7 L Hct 34.3 L RDW 17.3 H Seg Neutrophils % 86.0 H Lymphocytes % 5.1 L Absolute Lymphocytes 0.3 L Sodium 136.9 L Chloride 97 L Carbon Dioxide 35 H Creatinine 0.51 L Glucose 135 H Total Protein 5.4 L Albumin 3.3 L - Diagnostic Test Radiology reviewed: Reports reviewed Radiology results interpreted by me: 10/13/18 21:09 Chest X-Ray 10/13/18 15:56 IMPRESSION: Mild increased interstitial thickening. No acute consolidation or pleural effusion. - EKG Interpretation by Me Additional EKG results interpreted by me: 10/13/18 21:10 Sinus mechanism with a rate of 95 bpm. Left axis deviation. Nonspecific ST changes, but no acute changes concerning for ischemia or infarction. This is unchanged when compared to prior study of April 03, 2017. Discharge - Discharge Clinical Impression: COPD exacerbation Condition: Stable Disposition: HOME, SELF-CARE Instructions: Chronic Obstructive Lung Disease ([facility]) Additional Instructions: Take all of the prednisone as directed. Avoid smoking cigarettes. Use your nebulizer every 4-6 hours as needed. Follow-up with your doctor on Tuesday. Return to the emergency department with worsening or new concerning symptoms. Referrals: DAVID JUAN MD [Primary Care Provider] - Follow up as needed
[2018-10-13 22:16] VITALS: BP 119/72
== END 2018-10-13 22:30 | disposition home or self-care (01) ==
LOC: ER 15:18
DX: J44.1 Chronic obstructive pulmonary disease with (acute) exacerbation (principal); C34.90 Malignant neoplasm of unspecified part of unspecified bronchus or lung; R05 Cough; F17.200 Nicotine dependence, unspecified, uncomplicated; I10 Essential (primary) hypertension; E11.9 Type 2 diabetes mellitus without complications; Z90.2 Acquired absence of lung [part of]
CPT/HCPCS: 93005; 36591; 94640; 99285; 96374; 96375; 36415; 87040; 85025; 80053; 84484; 83605; 83880; 71046; 93010; J2930; J3475; J1642; A9270; J7620

== ENCOUNTER 2018-10-17 14:34 | Inpatient (IN) | payer MEDICARE, OTHER ==
[2018-10-17] MEDS ORDERED: ONDANSETRON HCL INJ/PF 4 MG/2 ML SDV IV PRN (15:47)
[2018-10-17] MEDS ORDERED: ACETAMINOPHEN 325 MG TABLET PO PRN (15:47)
[2018-10-17 16:23] LABS: ABSOLUTE EOSINOPHILS # (AUTO) 0.2 10^3/uL (0.0-0.6); ABSOLUTE LYMPHOCYTES (AUTO) 0.3 10^3/uL (0.5-4.7); ABSOLUTE MONOCYTES (AUTO) 0.5 10^3/uL (0.1-1.4); ABSOLUTE NEUT (AUTO) 3.1 10^3/uL (1.7-8.2); BASOPHILS % (AUTO) 0.5 % (0-2); EOSINOPHILS % (AUTO) 3.8 % (0-6); HEMATOCRIT 32.9 % (37.9-51.0); HEMOGLOBIN 11.4 g/dL (13.5-17.0); LYMPHOCYTES % (AUTO) 7.1 % (13-45); MEAN CORPUSCULAR HGB CONC 34.6 g/dL (32.0-36.0); MEAN CORPUSCULAR VOLUME 95 fl (80-97); MONOCYTES % (AUTO) 12.7 % (3-13); PLATELET COUNT 208 10^3/uL (150-450); RED BLOOD COUNT 3.45 10^6/uL (4.35-5.55); RED CELL DISTRIBUTION WIDTH 16.3 % (11.5-14.0); SEGMENTED NEUTROPHILS % (AUTO) 75.9 % (42-78); TOTAL CELLS COUNTED % (AUTO) 100 %; WHITE BLOOD COUNT 4.1 10^3/uL (4.0-10.5)
[2018-10-17 16:41] LABS: ALANINE AMINOTRANSFERASE 23 U/L (21-72); ALBUMIN 3.7 g/dL (3.5-5.0); ALKALINE PHOSPHATASE 68 U/L (38-126); ANION GAP 6 (5-19); ASPARTATE AMINO TRANSFERASE 23 U/L (17-59); BILIRUBIN,DIRECT 0.2 mg/dL (0.0-0.4); BILIRUBIN,TOTAL 0.6 mg/dL (0.2-1.3); BLOOD UREA NITROGEN 10 mg/dL (7-20); CALCIUM 9.8 mg/dL (8.4-10.2); CARBON DIOXIDE 36 mmol/L (22-30); CHLORIDE 96 mmol/L (98-107); GLUCOSE 159 mg/dL (75-110); POTASSIUM 4.4 mmol/L (3.6-5.0); SODIUM 137.6 mmol/L (137-145); TOTAL PROTEIN 5.8 g/dL (6.3-8.2)
[2018-10-17] MEDS ORDERED: DEXTROSE 50%-WATER 25 GM/50 ML DISP.SYRIN IV PRN ×2 (16:41)
[2018-10-17] MEDS ORDERED: GLUCAGON,HUMAN RECOMB 1 MG INJ IM PRN (16:41)
[2018-10-17] MEDS ORDERED: DEXTROSE 40% GEL 15 GM TUBE PO PRN ×2 (16:41)
--- NOTE | 2018-10-17 16:41 | PDOC H&P ---
History of Present Illness Admission Date/PCP: 10/17/18 14:34 Patient complains of: sob/wt loss/wekness History of Present Illness: FRANKIE Lau COUSINS is a 73 year old male 3 year old male with a history of COPD (on advair and spiriva daily, as well as ipratropium and albuterol as needed for SOB), as well as recurrent lung cancer s/p resection currently treated with chemotherapy, and lymphoma presents with a one month history of productive cough, fatigue, and weight loss. The patient has been seen with this complaint twice by oncology, and each time responded well to steroids and abx, however he continues to feel tired and fatigued, with the productive cough. Most recently, the patient was seen in the ED 4 days ago, when he had a CXR without evidence of acute infection. He was instructed to schedule nebulizers every 6 hours, and start taking prednisone. However the patient is feeling run down and tired, unable to eat secondary to loss of appetite, and not taking his steroids. He continues to use his inhalers daily, and is using his nebulizer every 6-8 hours, but is profoundly SOB. He is using 2Ls of oxygen at baseline, but contiues to feel SOB. Has lost about 35 pounds in the last 2 months. Continues to have diarrhea chronic, and intermittent nausea and emesis. Last CT scan about 6 weeks ago was read as stable. Continues to receive chemotherapy weekly. Past Medical History Cardiac Medical History: Reports: Hyperlipidema, Hypertension Denies: Congestive Heart Failure, Coronary Artery Disease, Myocardial Infarction Pulmonary Medical History: Reports: Chronic Obstructive Pulmonary Disease (COPD) Denies: Asthma, Bronchitis, Pneumonia Neurological Medical History: Denies: Migraine, Seizures Endocrine Medical History: Reports: Diabetes Mellitus Type 2 Denies: Hyperthyroidism, Hypothyroidism Malignancy Medical History: Reports: Leukemia - Currently on chemotherapy, Lung Cancer - RU lobectomy 08/2015, Lymphoma - on rx as in hpi GI Medical History: Denies: Cirrhosis, Crohn's Disease, Ulcerative Colitis Musculoskeltal Medical History: Denies: Arthritis, Fibromyalgia, Gout Skin Medical History: Denies: Eczema, Psoriasis Hematology: Reports: Anemia Denies: Sickle Cell Disease Past Surgical History Past Surgical History: Reports: Other - R Upper lobectomy, BMBx Social History Smoking Status: Former Smoker Frequency of Alcohol Use: Rare Hx Recreational Drug Use: No Drugs: None Hx Prescription Drug Abuse: No - Advance Directive Resuscitation Status: Do Not Resuscitate Family History Family History: Reviewed & Not Pertinent, DM, Hypertension, Malignancy Parental Family History Reviewed: Yes Children Family History Reviewed: Yes Sibling(s) Family History Reviewed.: Yes Medication/Allergy Home Medications: Allopurinol [Zyloprim 300 mg Tablet] 300 mg PO DAILY 04/04/17 Amlodipine Besylate/Benazepril [Lotrel 10-40 mg Capsule] 1 cap PO DAILY 04/04/17 Ascorbic Acid [Vitamin C] 1,000 mg PO DAILY 04/04/17 Aspirin [Ecotrin 81 mg EC Tablet] 81 mg PO DAILY 04/04/17 Atorvastatin Calcium [Lipitor 20 mg Tablet] 20 mg PO QHS 04/04/17 Fenofibrate Nanocrystallized [Tricor 145 mg Tablet] 145 mg PO QHS 04/04/17 Fluticasone Propionate [Flonase Nasal Luebbering 50 Mcg/Luebbering 16 gm] 1 spray NASL DAILY 04/04/17 Pregabalin [Lyrica 100 mg Capsule] 100 mg PO Q8 04/04/17 Sitagliptin Phos/Metformin HCl [Janumet 50-1,000 mg Tablet] 1 tab PO Q12 04/04/17 Tiotropium Mart [Spiriva Handihaler 18 mcg/dose (30 Dose)] 1 cap IH DAILY 04/04/17 Prednisone [Deltasone 20 mg Tablet] See Protocol PO DAILY 5 Days #20 tablet MDD filled 10/16 for 5 day supply 10/13/18 Colestipol HCl [Colestid 1 gm Tablet] 2 gm PO DAILY 10/17/18 Dronabinol 5 mg PO BID 10/17/18 Fluticasone/Salmeterol [Advair 250-50 Diskus 14 Dose/Diskus] 1 inh IH Q12 10/17/18 Multivitamin [Tab-A-Robert (Multiple Vitamin) Tablet] 1 tab PO DAILY 10/17/18 Allergies/Adverse Reactions: No Known Allergies Allergy (Verified 07/19/18 06:42) Review of Systems Constitutional: PRESENT: fatigue, weakness. ABSENT: chills, fever(s), headache(s), weight gain, weight loss Eyes: ABSENT: visual disturbances Ears: ABSENT: hearing changes Cardiovascular: PRESENT: dyspnea on exertion. ABSENT: chest pain, edema, o rthropnea, palpitations Respiratory: PRESENT: dyspnea. ABSENT: cough, hemoptysis Gastrointestinal: ABSENT: abdominal pain, constipation, diarrhea, hematemesis, hematochezia, nausea, vomiting Genitourinary: ABSENT: dysuria, hematuria Musculoskeletal: ABSENT: joint swelling Integumentary: ABSENT: rash, wounds Neurological: ABSENT: abnormal gait, abnormal speech, confusion, dizziness, focal weakness, syncope Psychiatric: ABSENT: anxiety, depression, homidical ideation, suicidal ideation Endocrine: ABSENT: cold intolerance, heat intolerance, menstrual abnormalities, polydipsia, polyuria Hematologic/Lymphatic: ABSENT: easy bleeding, easy bruising, lymphadenopathy Physical Exam Vital Signs: Temp Pulse Resp BP Pulse Ox 98.2 F 94 16 134/72 H 97 10/17/18 14:52 10/17/18 14:52 10/17/18 14:52 10/17/18 14:52 10/17/18 14:52 Intake & Output 10/16/18 10/17/18 10/18/18 06:59 06:59 06:59 Weight 61 kg General appearance: PRESENT: no acute distress, thin Head exam: PRESENT: atraumatic, normocephalic Eye exam: PRESENT: conjunctiva pink, EOMI, PERRLA. ABSENT: scleral icterus Ear exam: PRESENT: normal external ear exam Mouth exam: PRESENT: moist, tongue midline Neck exam: PRESENT: full ROM. ABSENT: carotid bruit, JVD, lymphadenopathy, thyromegaly Respiratory exam: PRESENT: decreased breath sounds, wheezes Cardiovascular exam: PRESENT: RRR. ABSENT: diastolic murmur, rubs, systolic murmur Pulses: PRESENT: normal dorsalis pedis pul, +2 pedal pulses bilateral Vascular exam: PRESENT: normal capillary refill GI/Abdominal exam: PRESENT: normal bowel sounds, soft. ABSENT: distended, guarding, mass, organolmegaly, rebound, tenderness Rectal exam: PRESENT: deferred Extremities exam: ABSENT: pedal edema Musculoskeletal exam: PRESENT: ambulatory Neurological exam: PRESENT: alert, awake, oriented to person, oriented to place, oriented to time, oriented to situation, CN II-XII grossly intact. ABSENT: motor sensory deficit Psychiatric exam: PRESENT: appropriate affect, normal mood. ABSENT: homicidal ideation, suicidal ideation Skin exam: PRESENT: dry, intact, warm. ABSENT: cyanosis, rash Results Laboratory Results: 10/17/18 16:00 10/17/18 16:00 WBC 4.1 RBC 3.45 L Hgb 11.4 L Hct 32.9 L MCV 95 MCH 33.0 MCHC 34.6 RDW 16.3 H Plt Count 208 Seg Neutrophils % 75.9 Lymphocytes % 7.1 L Monocytes % 12.7 Eosinophils % 3.8 Basophils % 0.5 Absolute Neutrophils 3.1 Absolute Lymphocytes 0.3 L Absolute Monocytes 0.5 Absolute Eosinophils 0.2 Absolute Basophils 0.0 Assessment & Plan - Diagnosis (1) COPD exacerbation Is this a current diagnosis for this admission?: Yes Plan: Start the patient on IV Solu-Medrol nebulizer treatments (2) Weight loss Is this a current diagnosis for this admission?: Yes Plan: Patient says a stage IV lung cancers in the lymphoma currently on chemotherapy in the last 2 months patient's lost 36 pounds we will consult the oncology as per discussed with him we ordered a CT of the chest abdomen pelvis (3) Weakness Is this a current diagnosis for this admission?: Yes Plan: Due to the ongoing cancers with the recent weight loss possible underlying progression of the disease (4) Lung cancer Qualifiers: Lung location: unspecified part of lung Is this a current diagnosis for this admission?: Yes Plan: Chemotherapy (5) Mantle cell lymphoma Qualifiers: Lymphoma site: unspecified region Qualified Code(s): C83.10 - Mantle cell lymphoma, unspecified site Is this a current diagnosis for this admission?: Yes - Time Time Spent: 30 to 50 Minutes Medications reviewed and adjusted accordingly: Yes Anticipated discharge: Home Within: Other - Inpatient Certification Based on my medical assessment, after consideration of the patient's comorbidities, presenting symptoms, or acuity I expect that the services needed warrant INPATIENT care.: Yes I certify that my determination is in accordance with my understanding of Medicare's requirements for reasonable and necessary INPATIENT services [42 CFR 412.3e].: Yes Medical Necessity: Need Close Monitoring Due to Risk of Patient Decompensation, Need for Nebulizer Therapy and Monitoring of Response, Need for IV Antibiotics Post Hospital Care: D/C 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
[2018-10-17] MEDS: METHYLPREDNISOLONE INJ 125 MG/2 ML SDV IV SCH (17:16)
[2018-10-17] MEDS: LEVOFLOXACIN 500 MG TABLET PO SCH (18:08)
[2018-10-17] MEDS: IPRATROPIUM/ALBUTEROL 0.5-2.5 MG/3 ML AMPUL NEB SCH (20:35)
[2018-10-17] MEDS: FENOFIBRATE NANOCRYSTALLIZED 145 MG TABLET PO SCH (21:53)
[2018-10-17] MEDS: FAMOTIDINE 20 MG TABLET PO SCH (21:53)
[2018-10-17] MEDS: ATORVASTATIN CALCIUM 20 MG TABLET PO SCH (21:54)
[2018-10-17] MEDS: INSULIN LISPRO 100 UNIT/ML 3 ML VIAL SUBCUT SCH (21:54)
[2018-10-17] MEDS: DRONABINOL 2.5 MG CAPSULE PO SCH (21:54)
[2018-10-17] MEDS: PREGABALIN 100 MG CAPSULE PO SCH (21:54)
[2018-10-17] MEDS ORDERED: METHYLPREDNISOLONE INJ 40 MG/1 ML SDV IV SCH (22:00)
[2018-10-17] MEDS ORDERED: (PENDING PHARMACY ID) (Fluticasone/Salmeterol 1 INH) IH SCH (22:00)
--- NOTE | 2018-10-17 23:36 | RADIOLOGY REPORT (SQ) ---
CLINICAL HISTORY: LUNG CA COMPARISON: None. TECHNIQUE: CT CHEST WITH IV CONTRAST, CT ABDOMEN PELVIS WITH IV CONTRAST on 10/17/2018 12:00 AM CDT. MIPS reconstructions were generated. This exam was performed according to our departmental dose-optimization program, which includes automated exposure control, adjustment of the mA and/or kV according to patient size and/or use of iterative reconstruction technique. FINDINGS: Vascular: Thoracic aorta is normal in course and caliber without aneurysm or dissection. Pulmonary arteries are adequately opacified without acute or chronic filling defects. Abdominal aorta is normal in course and caliber without aneurysm. Pelvic arteries are patent without aneurysm or occlusion. The heart is normal in size. There is no pericardial effusion. There are calcified subcarinal lymph nodes. Right upper lobe resection was performed. Right chest port is in place. There is biapical pleural parenchymal scarring. There is a small right pleural effusion. The bladder is normal in appearance. Central airways are patent. There is a 6 mm left upper lobe pulmonary nodule. There are tree-in-bud nodular opacities in the lower lobes bilaterally. There is a cavitary lesion in the superior segment of the left lower lobe measuring 2.3 cm. Abdomen: The liver is normal in appearance. There is no biliary dilatation. The pancreas and spleen are normal in appearance. The adrenal glands and kidneys are unremarkable. There is no free air. There is no retroperitoneal adenopathy.Abdominal aorta is densely calcified without aneurysm. Pelvis: There is mild thickening of the colon diffusely. Urinary bladder is unremarkable. There is no free fluid. Appendix is not well seen. Skeleton: There are no acute osseous findings. No suspicious bony lesions. IMPRESSION: Cavitary lesion within the superior segment of left lower lobe as described. This is concerning for malignancy, possibly treated already. 6 mm left upper lobe pulmonary nodule. Tree-in-bud nodular opacities in the lower lungs likely secondary to infectious or inflammatory bronchiolitis.
[2018-10-18] MEDS: IPRATROPIUM/ALBUTEROL 0.5-2.5 MG/3 ML AMPUL NEB SCH ×5 (02:54→20:32)
[2018-10-18] MEDS: METHYLPREDNISOLONE INJ 125 MG/2 ML SDV IV SCH ×3 (02:59→17:10)
[2018-10-18] MEDS: PREGABALIN 100 MG CAPSULE PO SCH ×3 (05:09→22:04)
[2018-10-18 05:57] LABS: HEMATOCRIT 26.8 % (37.9-51.0); MEAN CORPUSCULAR HEMOGLOBIN 32.8 pg (27.0-33.4); MEAN CORPUSCULAR HGB CONC 34.8 g/dL (32.0-36.0); MEAN CORPUSCULAR VOLUME 94 fl (80-97); PLATELET COUNT 164 10^3/uL (150-450); RED BLOOD COUNT 2.84 10^6/uL (4.35-5.55); RED CELL DISTRIBUTION WIDTH 16.2 % (11.5-14.0)
[2018-10-18 06:00] LABS: HEMOGLOBIN 9.3 g/dL (13.5-17.0); WHITE BLOOD COUNT 2.2 10^3/uL (4.0-10.5)
[2018-10-18 06:01] LABS: ANION GAP 6 (5-19); BLOOD UREA NITROGEN 11 mg/dL (7-20); CALCIUM 9.3 mg/dL (8.4-10.2); CARBON DIOXIDE 33 mmol/L (22-30); CHLORIDE 98 mmol/L (98-107); GLUCOSE 203 mg/dL (75-110); POTASSIUM 4.4 mmol/L (3.6-5.0); SODIUM 136.6 mmol/L (137-145)
--- NOTE | 2018-10-18 07:48 | EKG REPORT ---
SEVERITY:- ABNORMAL ECG - SINUS RHYTHM LEFT ANTERIOR FASCICULAR BLOCK : Confirmed by: Vera Cruz MD 18-Oct-2018 07:47:14
[2018-10-18] MEDS: INSULIN LISPRO 100 UNIT/ML 3 ML VIAL SUBCUT SCH ×4 (08:19→22:04)
--- NOTE | 2018-10-18 08:35 | PDOC PROGRESS REPORT ---
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 ABSENT: scleral icterus Ear exam: PRESENT: normal external ear exam Mouth exam: PRESENT: moist, tongue midline Neck exam: PRESENT: full ROM. ABSENT: carotid bruit, JVD, lymphadenopathy, thyromegaly Respiratory exam: PRESENT: wheezes Cardiovascular exam: PRESENT: RRR. ABSENT: diastolic murmur, rubs, systolic murmur Pulses: PRESENT: normal dorsalis pedis pul, +2 pedal pulses bilateral Vascular exam: PRESENT: normal capillary refill GI/Abdominal exam: PRESENT: normal bowel sounds, soft. ABSENT: distended, guarding, mass, organolmegaly, rebound, tenderness Rectal exam: PRESENT: deferred Neurological exam: PRESENT: alert, awake, oriented to person, oriented to place, oriented to time, oriented to situation, CN II-XII grossly intact. ABSENT: mot or sensory deficit Psychiatric exam: PRESENT: appropriate affect, normal mood. ABSENT: homicidal ideation, suicidal ideation Skin exam: PRESENT: dry, intact, warm. ABSENT: cyanosis, rash Results Laboratory Results: 10/18/18 05:15 10/18/18 05:15 10/17/18 10/17/18 10/18/18 16:00 16:00 05:15 WBC 4.1 2.2 L D RBC 3.45 L 2.84 L Hgb 11.4 L 9.3 L D Hct 32.9 L 26.8 L MCV 95 94 MCH 33.0 32.8 MCHC 34.6 34.8 RDW 16.3 H 16.2 H Plt Count 208 164 Seg Neutrophils % 75.9 Lymphocytes % 7.1 L Monocytes % 12.7 Eosinophils % 3.8 Basophils % 0.5 Absolute Neutrophils 3.1 Absolute Lymphocytes 0.3 L Absolute Monocytes 0.5 Absolute Eosinophils 0.2 Absolute Basophils 0.0 Sodium 137.6 Potassium 4.4 Chloride 96 L Carbon Dioxide 36 H Anion Gap 6 BUN 10 Creatinine 0.71 Est GFR ( Amer) > 60 Est GFR (Non-Af Amer) > 60 Glucose 159 H Calcium 9.8 Total Bilirubin 0.6 AST 23 ALT 23 Alkaline Phosphatase 68 Total Protein 5.8 L Albumin 3.7 10/18/18 05:15 WBC RBC Hgb Hct MCV MCH MCHC RDW Plt Count Seg Neutrophils % Lymphocytes % Monocytes % Eosinophils % Basophils % Absolute Neutrophils Absolute Lymphocytes Absolute Monocytes Absolute Eosinophils Absolute Basophils Sodium 136.6 L Potassium 4.4 Chloride 98 Carbon Dioxide 33 H Anion Gap 6 BUN 11 Creatinine 0.57 Est GFR ( Amer) > 60 Est GFR (Non-Af Amer) > 60 Glucose 203 H Calcium 9.3 Total Bilirubin AST ALT Alkaline Phosphatase Total Protein Albumin Impressions: Abdomen/Pelvis CT 10/17/18 00:00 IMPRESSION: Cavitary lesion within the superior segment of left lower lobe as described. This is concerning for malignancy, possibly treated already. 6 mm left upper lobe pulmonary nodule. Tree-in-bud nodular opacities in the lower lungs likely secondary to infectious or inflammatory bronchiolitis. Chest CT 10/17/18 00:00 IMPRESSION: Cavitary lesion within the superior segment of left lower lobe as described. This is concerning for malignancy, possibly treated already. 6 mm left upper lobe pulmonary nodule. Tree-in-bud nodular opacities in the lower lungs likely secondary to infectious or inflammatory bronchiolitis. Assessment & Plan - Diagnosis (1) COPD exacerbation Is this a current diagnosis for this admission?: Yes Plan: Continues to the nebulizer treatment IV steroids (2) Weight loss Is this a current diagnosis for this admission?: Yes Plan: CT of the chest is stable per oncology CT abdomen and pelvis and possible colitis to the immunotherapy related (3) Weakness Is this a current diagnosis for this admission?: Yes Plan: Due to the ongoing cancers with the recent weight loss possible underlying progr ession of the disease (4) Lung cancer Qualifiers: Lung location: unspecified part of lung Is this a current diagnosis for this admission?: Yes Plan: Chemotherapy (5) Mantle cell lymphoma Qualifiers: Lymphoma site: unspecified region Qualified Code(s): C83.10 - Mantle cell lymphoma, unspecified site Is this a current diagnosis for this admission?: Yes (6) Colitis Is this a current diagnosis for this admission?: Yes Plan: Continues to steroid because of the immunotherapy related - Time Time Spent with patient: 15-24 minutes Medications reviewed and adjusted accordingly: Yes Anticipated discharge: Home Within: Other - Plan Summary Plan Summary: Continues to current medications
--- NOTE | 2018-10-18 08:48 | PDOC CONSULTATION ---
Consultation Consult Date: 10/18/18 Attending physician:: FRANKLIN LEA Provider Consulted: DAVID JUAN Consult reason:: Respiratory distress, weight loss, diarrhea in the setting of stage IV lung cancer on chemo/immunotherapy History of Present Illness Admission Date/PCP: 10/17/18 14:34 Patient complains of: Diarrhea, increasing shortness of breath History of Present Illness: FRANKIE Lau COUSINS is a 73 year old male with known history of COPD on home O2, also stage IV lung cancer with bilateral lung nodules, currently on chemo/immunotherapy with carboplatin, Abraxane,keytruda, received his last cycle about 1 week ago. Is been having a 2-week history of increasing shortness of breath and initially we thought it was COPD exacerbation versus pneumonia, we gave him an outpatient course of azithromycin, then vancomycin as well as Medrol Dosepak. He was not improving and he saw his PCP, Dr. Lea who felt he was necessitating admission for COPD exacerbation. Of note, in discussion with patient today has been actually having diarrhea for 2 weeks up to 11-12 times a day. He really did not mention this to much to us as an outpatient. He is also been having daily nausea. Taste changes. And lost actually about 15 pounds over the last 1 to 2 months. Initially we felt that he may be progressing, we reviewed CT of the chest abdo men pelvis that was done upon admission, I also showed the patient the images as well as Dr. Lea the images, actually the 2 lung lesions are decreasing in size and appearance, and there is no evidence of new disease. However, the colon is thickened, to me was concerning for colitis. Past Medical History Cardiac Medical History: Reports: Hyperlipidema, Hypertension Denies: Congestive Heart Failure, Coronary Artery Disease, Myocardial Infarction Pulmonary Medical History: Reports: Chronic Obstructive Pulmonary Disease (COPD) Denies: Asthma, Bronchitis, Pneumonia Neurological Medical History: Denies: Migraine, Seizures Endocrine Medical History: Reports: Diabetes Mellitus Type 2 Denies: Hyperthyroidism, Hypothyroidism Malignancy Medical History: Reports: Leukemia - Currently on chemotherapy, Lung Cancer - RU lobectomy 08/2015, Lymphoma - on rx as in hpi GI Medical History: Denies: Cirrhosis, Crohn's Disease, Ulcerative Colitis Musculoskeltal Medical History: Denies: Arthritis, Fibromyalgia, Gout Skin Medical History: Denies: Eczema, Psoriasis Hematology: Reports: Anemia Denies: Sickle Cell Disease Past Surgical History Past Surgical History: Reports: Other - R Upper lobectomy, BMBx Social History Information Source: Patient Smoking Status: Current Every Day Smoker Frequency of Alcohol Use: Rare Hx Recreational Drug Use: No Drugs: None Hx Prescription Drug Abuse: No - Advance Directive Resuscitation Status: Do Not Resuscitate Family History Family History: Reviewed & Not Pertinent, DM, Hypertension, Malignancy Parental Family History Reviewed: Yes Children Family History Reviewed: Yes Sibling(s) Family History Reviewed.: Yes Medication/Allergy Home Medications: Allopurinol [Zyloprim 300 mg Tablet] 300 mg PO DAILY 04/04/17 Amlodipine Besylate/Benazepril [Lotrel 10-40 mg Capsule] 1 cap PO DAILY 04/04/17 Ascorbic Acid [Vitamin C] 1,000 mg PO DAILY 04/04/17 Aspirin [Ecotrin 81 mg EC Tablet] 81 mg PO DAILY 04/04/17 Atorvastatin Calcium [Lipitor 20 mg Tablet] 20 mg PO QHS 04/04/17 Fenofibrate Nanocrystallized [Tricor 145 mg Tablet] 145 mg PO QHS 04/04/17 Fluticasone Propionate [Flonase Nasal [place] 50 Mcg/[place]ell 16 gm] 1 spray NASL DAILY 04/04/17 Pregabalin [Lyrica 100 mg Capsule] 100 mg PO Q8 04/04/17 Sitagliptin Phos/Metformin HCl [Janumet 50-1,000 mg Tablet] 1 tab PO Q12 04/04/17 Tiotropium [place] [Spiriva Handihaler 18 mcg/dose (30 Dose)] 1 cap IH DAILY 04/04/17 Prednisone [Deltasone 20 mg Tablet] See Protocol PO DAILY 5 Days #20 tablet MDD filled 10/16 for 5 day supply 10/13/18 Colestipol HCl [Colestid 1 gm Tablet] 2 gm PO DAILY 10/17/18 Dronabinol 5 mg PO BID 10/17/18 Fluticasone/Salmeterol [Advair 250-50 Diskus 14 Dose/Diskus] 1 inh IH Q12 10/17/18 Multivitamin [Tab-A-Robert (Multiple Vitamin) Tablet] 1 tab PO DAILY 10/17/18 Allergies/Adverse Reactions: No Known Allergies Allergy (Verified 07/19/18 06:42) Review of Systems Constitutional: ABSENT: chills, fever(s), headache(s), weight gain, weight loss Eyes: ABSENT: visual disturbances Ears: ABSENT: hearing changes Cardiovascular: ABSENT: chest pain, dyspnea on exertion, edema, orthropnea, palpitations Respiratory: ABSENT: cough, hemoptysis Gastrointestinal: ABSENT: abdominal pain, constipation, diarrhea, hematemesis, hematochezia, nausea, vomiting Genitourinary: ABSENT: dysuria, hematuria Musculoskeletal: ABSENT: joint swelling Integumentary: ABSENT: rash, wounds Neurological: ABSENT: abnormal gait, abnormal speech, confusion, dizziness, focal weakness, syncope Psychiatric: ABSENT: anxiety, depression, homidical ideation, suicidal ideation Endocrine: ABSENT: cold intolerance, heat intolerance, polydipsia, polyuria Hematologic/Lymphatic: ABSENT: easy bleeding, easy bruising Physical Exam Vital Signs: Temp Pulse Resp BP Pulse Ox 98.1 F 83 20 106/60 96 10/17/18 23:58 10/18/18 07:50 10/18/18 07:50 10/17/18 23:58 10/18/18 07:50 Intake & Output 10/17/18 10/18/18 10/19/18 06:59 06:59 06:59 Intake Total 1520 Balance 1520 Weight 61.7 kg General appearance: PRESENT: no acute distress, well-developed, well-nourished Head exam: PRESENT: atraumatic, normocephalic Eye exam: PRESENT: conjunctiva pink, EOMI, PERRLA. ABSENT: scleral icterus Ear exam: PRESENT: normal external ear exam Mouth exam: PRESENT: moist, tongue midline Neck exam: ABSENT: carotid bruit, JVD, lymphadenopathy, thyromegaly Respiratory exam: PRESENT: clear to auscultation kali. ABSENT: rales, rhonchi, wheezes Cardiovascular exam: PRESENT: RRR. ABSENT: diastolic murmur, rubs, systolic murmur Pulses: PRESENT: normal dorsalis pedis pul Vascular exam: PRESENT: normal capillary refill GI/Abdominal exam: PRESENT: normal bowel sounds, soft. ABSENT: distended, guarding, mass, organolmegaly, rebound, tenderness Rectal exam: PRESENT: deferred Extremities exam: PRESENT: full ROM. ABSENT: calf tenderness, clubbing, pedal edema Neurological exam: PRESENT: alert, awake, oriented to person, oriented to place, oriented to time, oriented to situation, CN II-XII grossly intact. ABSENT: motor sensory deficit Psychiatric exam: PRESENT: appropriate affect, normal mood. ABSENT: homicidal ideation, suicidal ideation Skin exam: PRESENT: dry, intact, warm. ABSENT: cyanosis, rash Results Laboratory Results: 10/18/18 05:15 10/18/18 05:15 10/17/18 10/17/18 10/18/18 16:00 16:00 05:15 WBC 4.1 2.2 L D RBC 3.45 L 2.84 L Hgb 11.4 L 9.3 L D Hct 32.9 L 26.8 L MCV 95 94 MCH 33.0 32.8 MCHC 34.6 34.8 RDW 16.3 H 16.2 H Plt Count 208 164 Seg Neutrophils % 75.9 Lymphocytes % 7.1 L Monocytes % 12.7 Eosinophils % 3.8 Basophils % 0.5 Absolute Neutrophils 3.1 Absolute Lymphocytes 0.3 L Absolute Monocytes 0.5 Absolute Eosinophils 0.2 Absolute Basophils 0.0 Sodium 137.6 Potassium 4.4 Chloride 96 L Carbon Dioxide 36 H Anion Gap 6 BUN 10 Creatinine 0.71 Est GFR ( Amer) > 60 Est GFR (Non-Af Amer) > 60 Glucose 159 H Calcium 9.8 Total Bilirubin 0.6 AST 23 ALT 23 Alkaline Phosphatase 68 Total Protein 5.8 L Albumin 3.7 10/18/18 05:15 WBC RBC Hgb Hct MCV MCH MCHC RDW Plt Count Seg Neutrophils % Lymphocytes % Monocytes % Eosinophils % Basophils % Absolute Neutrophils Absolute Lymphocytes Absolute Monocytes Absolute Eosinophils Absolute Basophils Sodium 136.6 L Potassium 4.4 Chloride 98 Carbon Dioxide 33 H Anion Gap 6 BUN 11 Creatinine 0.57 Est GFR ( Amer) > 60 Est GFR (Non-Af Amer) > 60 Glucose 203 H Calcium 9.3 Total Bilirubin AST ALT Alkaline Phosphatase Total Protein Albumin Impressions: Abdomen/Pelvis CT 10/17/18 00:00 IMPRESSION: Cavitary lesion within the superior segment of left lower lobe as described. This is concerning for malignancy, possibly treated already. 6 mm left upper lobe pulmonary nodule. Tree-in-bud nodular opacities in the lower lungs likely secondary to infectious or inflammatory bronchiolitis. Chest CT 10/17/18 00:00 IMPRESSION: Cavitary lesion within the superior segment of left lower lobe as described. This is concerning for malignancy, possibly treated already. 6 mm left upper lobe pulmonary nodule. Tree-in-bud nodular opacities in the lower lungs likely secondary to infectious or inflammatory bronchiolitis. Status: Image reviewed by me - And reviewed with the patient as well as other physicians Assessment & Plan - Diagnosis (1) COPD exacerbation Is this a current diagnosis for this admission?: Yes Plan: Continue with IV steroids and nebulizer treatments, he is doing a little bit better but continue with another 24 to 48 hours of therapy. (2) Lung cancer Qualifiers: Laterality: right Lung location: overlapping sites Qualified Code(s): C34 .81 - Malignant neoplasm of overlapping sites of right bronchus and lung Is this a current diagnosis for this admission?: Yes Plan: Patient with known stage IV lung cancer, actually is improving with therapy. We would like to reinitiate therapy as an outpatient. However the immunotherapy may be causing some of the colitis, and high-dose steroid should improve that. We will need a 2-week steroid taper upon discharge. But high-dose steroids need to continue at least to another 24 and 48 hours. (3) Colitis Is this a current diagnosis for this admission?: Yes Plan: Probably medication related colitis, continue with IV steroids. (4) Weight loss Is this a current diagnosis for this admission?: Yes Plan: Probably secondary more to the colitis as well as taste changes from the cytotoxic chemotherapy. Anyway, he received a fourth cycle of cytotoxic chemotherapy and he was not going to receive any more of that, as an outpatient would like to continue immunotherapy alone. - Time Time Spent: Greater than 70 Minutes - Inpatient Certification Based on my medical assessment, after consideration of the patient's comorbidities, presenting symptoms, or acuity I expect that the services needed warrant INPATIENT care.: Yes I certify that my determination is in accordance with my understanding of Medicare's requirements for reasonable and necessary INPATIENT services [42 CFR 412.3e].: Yes Medical Necessity: Need for Nebulizer Therapy and Monitoring of Response, Risk o f Complication if Not Cared For in Hospital
[2018-10-18] MEDS ORDERED: (PENDING PHARMACY ID) (Amlodipine Besylate/Benazepril [Lotrel 10-40 Mg Capsule] 1 CAP) PO SCH (10:00)
[2018-10-18] MEDS ORDERED: (PENDING PHARMACY ID) (Colestipol Hcl [Colestid 1 Gm Tablet] 2 GM) PO SCH (10:00)
[2018-10-18] MEDS: ALLOPURINOL 300 MG TABLET PO SCH (10:36)
[2018-10-18] MEDS: AMLODIPINE BESYLATE 10 MG TABLET PO SCH (10:36)
[2018-10-18] MEDS: ASPIRIN 81 MG TABLET, ENT COATED PO SCH (10:37)
[2018-10-18] MEDS: BENAZEPRIL HCL 20 MG TABLET PO SCH (10:37)
[2018-10-18] MEDS: ASCORBIC ACID 500 MG TABLET PO SCH (10:37)
[2018-10-18] MEDS: FLUTICASONE NASAL SPRAY 50 MCG/SPRY 120 SPRAY/16 GM NASL SCH (10:37)
[2018-10-18] MEDS: FAMOTIDINE 20 MG TABLET PO SCH ×2 (10:37→22:04)
[2018-10-18] MEDS: DRONABINOL 2.5 MG CAPSULE PO SCH ×2 (10:37→22:04)
[2018-10-18] MEDS: MULTIVITAMIN TABLET PO SCH (10:37)
[2018-10-18] MEDS: FLUTICASONE/VILANTEROL 200-25 MCG/DOSE IH SCH (10:38)
[2018-10-18] MEDS: TIOTROPIUM BROMIDE DPI 5 CAP/KIT (18 MCG/CAP) IH SCH (10:39)
[2018-10-18] MEDS: ENOXAPARIN SODIUM INJ 40 MG/0.4 ML DISP.SYRIN SUBCUT SCH (10:40)
[2018-10-18] MEDS: DOCUSATE SODIUM 100 MG CAPSULE PO SCH (10:41)
--- NOTE | 2018-10-18 14:20 | RADIOLOGY REPORT (SQ) ---
EXAM DESCRIPTION: NM WHOLE BODY BONE SCAN COMPLETED DATE/TIME: 10/18/2018 1:41 pm REASON FOR STUDY: Evaluation for bone metastasis.Stage 4 Lung Cancer COMPARISON: No available imaging studies for comparison. RADIONUCLIDE AND DOSE: 21.0 millicuries Tc99m MDP. The route of agent administration: Intravenous. ADDITIONAL DRUGS AND DOSES: None. TECHNIQUE: Routine delayed images at 3 hour post radionuclide injection acquired of the bony skeleto n including anterior and posterior whole-body projections and additional focused images as needed. LIMITATIONS: Artifact associated with port injection. FINDINGS: BONES: Normal visualization without areas of photopenia or increased bony uptake of radiop harmaceutical. KIDNEYS: Symmetric excretion without obstruction. OTHER: No other significant finding. IMPRESSION: No evidence of metastatic disease. COMMENT: Quality measure 147: No available prior imaging studies for comparison TECHNICAL DOCUMENTATION: JOB ID: [id number] [employer]- All Rights Reserved Reading location - IP/workstation name: [email or web address]
[2018-10-18] MEDS: LEVOFLOXACIN 500 MG TABLET PO SCH (17:09)
[2018-10-18] MEDS: FENOFIBRATE NANOCRYSTALLIZED 145 MG TABLET PO SCH (22:04)
[2018-10-18] MEDS: ATORVASTATIN CALCIUM 20 MG TABLET PO SCH (22:04)
[2018-10-19] MEDS: IPRATROPIUM/ALBUTEROL 0.5-2.5 MG/3 ML AMPUL NEB SCH ×4 (02:18→20:27)
[2018-10-19] MEDS: PREGABALIN 100 MG CAPSULE PO SCH ×3 (05:15→22:07)
[2018-10-19] MEDS ORDERED: METHYLPREDNISOLONE INJ 125 MG/2 ML SDV IV SCH ×2 (06:00→14:00)
[2018-10-19 06:19] LABS: HEMATOCRIT 24.2 % (37.9-51.0); HEMOGLOBIN 8.3 g/dL (13.5-17.0); MEAN CORPUSCULAR HEMOGLOBIN 32.8 pg (27.0-33.4); MEAN CORPUSCULAR HGB CONC 34.4 g/dL (32.0-36.0); MEAN CORPUSCULAR VOLUME 95 fl (80-97); PLATELET COUNT 165 10^3/uL (150-450); RED BLOOD COUNT 2.54 10^6/uL (4.35-5.55)
[2018-10-19] MEDS: METHYLPREDNISOLONE INJ 125 MG/2 ML SDV IV SCH (06:22)
[2018-10-19 06:32] LABS: BLOOD UREA NITROGEN 17 mg/dL (7-20); CALCIUM 9.2 mg/dL (8.4-10.2); GLUCOSE 308 mg/dL (75-110)
[2018-10-19 06:44] LABS: ANION GAP 5 (5-19); CARBON DIOXIDE 34 mmol/L (22-30); CHLORIDE 100 mmol/L (98-107); POTASSIUM 4.4 mmol/L (3.6-5.0); SODIUM 138.6 mmol/L (137-145)
[2018-10-19] MEDS: INSULIN LISPRO 100 UNIT/ML 3 ML VIAL SUBCUT SCH ×4 (07:59→22:06)
--- NOTE | 2018-10-19 08:28 | PDOC PROGRESS REPORT ---
Subjective Progress Note for:: 10/19/18 Subjective:: Patient feeling much better, energy levels improved, eating well, today we will get up and walk on the floor. Diarrhea is fully resolved, no BM for 24 hours. Reason For Visit: COPD ACUTE Physical Exam Vital Signs: Temp Pulse Resp BP Pulse Ox 98.5 F 78 20 131/60 H 97 10/18/18 23:44 10/19/18 02:18 10/19/18 02:18 10/18/18 23:44 10/19/18 02:18 Intake & Output 10/18/18 10/19/18 10/20/18 06:59 06:59 06:59 Intake Total 1520 2667 Balance 1520 2667 Weight 61.7 kg 64.2 kg General appearance: PRESENT: no acute distress, well-developed, well-nourished Head exam: PRESENT: atraumatic, normocephalic Eye exam: PRESENT: conjunctiva pink, EOMI, PERRLA. ABSENT: scleral icterus Ear exam: PRESENT: normal external ear exam Mouth exam: PRESENT: moist, tongue midline Neck exam: ABSENT: carotid bruit, JVD, lymphadenopathy, thyromegaly Respiratory exam: PRESENT: clear to auscultation kali. ABSENT: rales, rhonchi, wheezes Cardiovascular exam: PRESENT: RRR. ABSENT: diastolic murmur, rubs, systolic murmur Pulses: PRESENT: normal dorsalis pedis pul Vascular exam: PRESENT: normal capillary refill GI/Abdominal exam: PRESENT: normal bowel sounds, soft. ABSENT: distended, guarding, mass, organolmegaly, rebound, tenderness Rectal exam: PRESENT: deferred Extremities exam: PRESENT: full ROM. ABSENT: calf tenderness, clubbing, pedal edema Neurological exam: PRESENT: alert, awake, oriented to person, oriented to place, oriented to time, oriented to situation, CN II-XII grossly intact. ABSENT: motor sensory deficit Psychiatric exam: PRESENT: appropriate affect, normal mood. ABSENT: homicidal ideation, suicidal ideation Skin exam: PRESENT: dry, intact, warm. ABSENT: cyanosis, rash Results Laboratory Results: 10/19/18 05:20 10/19/18 05:20 10/19/18 10/19/18 05:20 05:20 WBC 3.0 L RBC 2.54 L Hgb 8.3 L Hct 24.2 L MCV 95 MCH 32.8 MCHC 34.4 RDW 16.0 H Plt Count 165 Sodium 138.6 Potassium 4.4 Chloride 100 Carbon Dioxide 34 H Anion Gap 5 BUN 17 Creatinine 0.66 Est GFR ( Amer) > 60 Est GFR (Non-Af Amer) > 60 Glucose 308 H Calcium 9.2 Impressions: Abdomen/Pelvis CT 10/17/18 00:00 IMPRESSION: Cavitary lesion within the superior segment of left lower lobe as described. This is concerning for malignancy, possibly treated already. 6 mm left upper lobe pulmonary nodule. Tree-in-bud nodular opacities in the lower lungs likely secondary to infectious or inflammatory bronchiolitis. Chest CT 10/17/18 00:00 IMPRESSION: Cavitary lesion within the superior segment of left lower lobe as described. This is concerning for malignancy, possibly treated already. 6 mm left upper lobe pulmonary nodule. Tree-in-bud nodular opacities in the lower lungs likely secondary to infectious or inflammatory bronchiolitis. Body Scan Nuclear Medicine 10/18/18 00:00 IMPRESSION: No evidence of metastatic disease. Assessment & Plan - Diagnosis (1) COPD exacerbation Is this a current diagnosis for this admission?: Yes Plan: Improving, continue with IV steroids transition to oral steroids in 24 hours. (2) Lung cancer Qualifiers: Laterality: right Lung location: overlapping sites Qualified Code(s): C34.81 - Malignant neoplasm of overlapping sites of right bronchus and lung Is this a current diagnosis for this admission?: Yes Plan: Improved, holding therapy until steroid taper is completed as an outpatient (3) Colitis Is this a current diagnosis for this admission?: Yes Plan: Improving, may be multifactorial but probably most likely related to immunotherapy (4) Weight loss Is this a current diagnosis for this admission?: Yes Plan: Improved, patient is eating now - Time Time Spent with patient: 35 or more minutes - Inpatient Certification Based on my medical assessment, after consideration of the patient's comorbidi ties, presenting symptoms, or acuity I expect that the services needed warrant INPATIENT care.: Yes I certify that my determination is in accordance with my understanding of Rosita cardenas's requirements for reasonable and necessary INPATIENT services [42 CFR 412.3e].: Yes Medical Necessity: Need for Nebulizer Therapy and Monitoring of Response, Risk of Complication if Not Cared For in Hospital, Other - Need for IV steroids
--- NOTE | 2018-10-19 08:51 | PDOC PROGRESS REPORT ---
Subjective Progress Note for:: 10/19/18 Subjective:: Patient is feeling much better Patient is denied any chest pain to than any shortness of the breath Patient's denied any abdominal pain no nausea no vomiting no diarrhea Reason For Visit: COPD ACUTE Physical Exam Vital Signs: Temp Pulse Resp BP Pulse Ox 98.5 F 83 18 131/60 H 96 10/18/18 23:44 10/19/18 08:39 10/19/18 08:39 10/18/18 23:44 10/19/18 08:39 Intake & Output 10/18/18 10/19/18 10/20/18 06:59 06:59 06:59 Intake Total 1520 2667 Balance 1520 2667 Weight 61.7 kg 64.2 kg General appearance: PRESENT: no acute distress, well-developed, well-nourished Head exam: PRESENT: atraumatic, normocephalic Eye exam: PRESENT: conjunctiva pink, EOMI, PERRLA. ABSENT: scleral icterus Ear exam: PRESENT: normal external ear exam Mouth exam: PRESENT: moist, tongue midline Neck exam: PRESENT: full ROM. ABSENT: carotid bruit, JVD, lymphadenopathy, thyromegaly Respiratory exam: PRESENT: clear to auscultation kali Cardiovascular exam: PRESENT: RRR. ABSENT: diastolic murmur, rubs, systolic murmur Pulses: PRESENT: normal dorsalis pedis pul, +2 pedal pulses bilateral Vascular exam: PRESENT: normal capillary refill GI/Abdominal exam: PRESENT: normal bowel sounds, soft. ABSENT: distended, guarding, mass, organolmegaly, rebound, tenderness Rectal exam: PRESENT: deferred Musculoskeletal exam: PRESENT: ambulatory Neurological exam: PRESENT: alert, awake, oriented to person, oriented to place, oriented to time, oriented to situation, CN II-XII grossly intact. ABSENT: motor sensory deficit Psychiatric exam: PRESENT: appropriate affect, normal mood. ABSENT: homicidal ideation, suicidal ideation Skin exam: PRESENT: dry, intact, warm. ABSENT: cyanosis, rash Results Laboratory Results: 10/19/18 05:20 10/19/18 05:20 10/19/18 10/19/18 05:20 05:20 WBC 3.0 L RBC 2.54 L Hgb 8.3 L Hct 24.2 L MCV 95 MCH 32.8 MCHC 34.4 RDW 16.0 H Plt Count 165 Sodium 138.6 Potassium 4.4 Chloride 100 Carbon Dioxide 34 H Anion Gap 5 BUN 17 Creatinine 0.66 Est GFR ( Amer) > 60 Est GFR (Non-Af Amer) > 60 Glucose 308 H Calcium 9.2 Impressions: Abdomen/Pelvis CT 10/17/18 00:00 IMPRESSION: Cavitary lesion within the superior segment of left lower lobe as described. This is concerning for malignancy, possibly treated already. 6 mm left upper lobe pulmonary nodule. Tree-in-bud nodular opacities in the lower lungs likely secondary to infectious or inflammatory bronchiolitis. Chest CT 10/17/18 00:00 IMPRESSION: Cavitary lesion within the superior segment of left lower lobe as described. This is concerning for malignancy, possibly treated already. 6 mm left upper lobe pulmonary nodule. Tree-in-bud nodular opacities in the lower lungs likely secondary to infectious or inflammatory bronchiolitis. Body Scan Nuclear Medicine 10/18/18 00:00 IMPRESSION: No evidence of metastatic disease. Assessment & Plan - Diagnosis (1) COPD exacerbation Is this a current diagnosis for this admission?: Yes Plan: Currently all improving (2) Weight loss Is this a current diagnosis for this admission?: Yes Plan: CT of the chest is stable per oncology CT abdomen and pelvis and possible colitis to the immunotherapy related (3) Weakness Is this a current diagnosis for this admission?: Yes (4) Lung cancer Qualifiers: Laterality: right Lung location: overlapping sites Qualified Code(s): C34.81 - Malignant neoplasm of overlapping sites of right bronchus and lung Is this a current diagnosis for this admission?: Yes Plan: Chemotherapy (5) Mantle cell lymphoma Qualifiers: Lymphoma site: unspecified region Qualified Code(s): C83.10 - Mantle cell lymphoma, unspecified site Is this a current diagnosis for this admission?: Yes (6) Colitis Is this a current diagnosis for this admission?: Yes Plan: Level stable - Time Time Spent with patient: 15-24 minutes Medications reviewed and adjusted accordingly: Yes Anticipated discharge: Home Within: within 24 hours - Plan Summary Plan Summary: Current medication
[2018-10-19] MEDS: FLUTICASONE NASAL SPRAY 50 MCG/SPRY 120 SPRAY/16 GM NASL SCH (10:15)
[2018-10-19] MEDS: FLUTICASONE/VILANTEROL 200-25 MCG/DOSE IH SCH (10:16)
[2018-10-19] MEDS: DOCUSATE SODIUM 100 MG CAPSULE PO SCH (10:16)
[2018-10-19] MEDS: DRONABINOL 2.5 MG CAPSULE PO SCH ×2 (10:17→22:07)
[2018-10-19] MEDS: FAMOTIDINE 20 MG TABLET PO SCH ×2 (10:18→22:07)
[2018-10-19] MEDS: ALLOPURINOL 300 MG TABLET PO SCH (10:18)
[2018-10-19] MEDS: MULTIVITAMIN TABLET PO SCH (10:18)
[2018-10-19] MEDS: AMLODIPINE BESYLATE 10 MG TABLET PO SCH (10:18)
[2018-10-19] MEDS: ASPIRIN 81 MG TABLET, ENT COATED PO SCH (10:18)
[2018-10-19] MEDS: TIOTROPIUM BROMIDE DPI 5 CAP/KIT (18 MCG/CAP) IH SCH (10:19)
[2018-10-19] MEDS: BENAZEPRIL HCL 20 MG TABLET PO SCH (10:22)
[2018-10-19] MEDS: ASCORBIC ACID 500 MG TABLET PO SCH (10:22)
[2018-10-19] MEDS: ENOXAPARIN SODIUM INJ 40 MG/0.4 ML DISP.SYRIN SUBCUT SCH (10:23)
[2018-10-19] MEDS ORDERED: ONDANSETRON HCL INJ/PF 4 MG/2 ML SDV IV PRN (11:00)
[2018-10-19] MEDS: METHYLPREDNISOLONE INJ 40 MG/1 ML SDV IV SCH ×2 (13:52→22:06)
[2018-10-19] MEDS: LEVOFLOXACIN 500 MG TABLET PO SCH (17:00)
[2018-10-19] MEDS: ATORVASTATIN CALCIUM 20 MG TABLET PO SCH (22:07)
[2018-10-19] MEDS: FENOFIBRATE NANOCRYSTALLIZED 145 MG TABLET PO SCH (22:07)
[2018-10-19] MEDS: METFORMIN HCL 500 MG TABLET PO SCH (22:08)
[2018-10-19] MEDS: SITAGLIPTIN PHOSPHATE 50 MG TABLET PO SCH (22:08)
[2018-10-20 00:38] VITALS: BP 123/44
[2018-10-20] MEDS: IPRATROPIUM/ALBUTEROL 0.5-2.5 MG/3 ML AMPUL NEB SCH ×2 (02:42→09:03)
[2018-10-20] MEDS: METHYLPREDNISOLONE INJ 40 MG/1 ML SDV IV SCH (05:32)
[2018-10-20] MEDS: PREGABALIN 100 MG CAPSULE PO SCH (05:32)
[2018-10-20 06:13] LABS: HEMOGLOBIN 8.7 g/dL (13.5-17.0); MEAN CORPUSCULAR HEMOGLOBIN 33.2 pg (27.0-33.4); MEAN CORPUSCULAR HGB CONC 34.7 g/dL (32.0-36.0); MEAN CORPUSCULAR VOLUME 96 fl (80-97); PLATELET COUNT 179 10^3/uL (150-450); RED BLOOD COUNT 2.61 10^6/uL (4.35-5.55); RED CELL DISTRIBUTION WIDTH 16.2 % (11.5-14.0)
[2018-10-20 06:30] LABS: ANION GAP 6 (5-19); BLOOD UREA NITROGEN 20 mg/dL (7-20); CALCIUM 9.2 mg/dL (8.4-10.2); CARBON DIOXIDE 35 mmol/L (22-30); CHLORIDE 98 mmol/L (98-107); GLUCOSE 296 mg/dL (75-110); POTASSIUM 4.9 mmol/L (3.6-5.0); SODIUM 139.2 mmol/L (137-145)
--- NOTE | 2018-10-20 08:12 | PDOC PROGRESS REPORT ---
Subjective Progress Note for:: 10/20/18 Subjective:: Pt looks great today, eating well, walked in [place] Reason For Visit: COPD ACUTE Physical Exam Vital Signs: Temp Pulse Resp BP Pulse Ox 98.2 F 89 18 123/44 L 96 10/20/18 00:00 10/20/18 07:00 10/20/18 02:45 10/20/18 00:00 10/20/18 02:45 Intake & Output 10/19/18 10/20/18 10/21/18 06:59 06:59 06:59 Intake Total 2667 2332 Output Total 1200 Balance 2667 1132 Weight 64.2 kg 65.4 kg General appearance: PRESENT: no acute distress, well-developed, well-nourished Head exam: PRESENT: atraumatic, normocephalic Eye exam: PRESENT: conjunctiva pink, EOMI, PERRLA. ABSENT: scleral icterus Ear exam: PRESENT: normal external ear exam Mouth exam: PRESENT: moist, tongue midline Neck exam: ABSENT: carotid bruit, JVD, lymphadenopathy, thyromegaly Respiratory exam: PRESENT: clear to auscultation kali. ABSENT: rales, rhonchi, wheezes Cardiovascular exam: PRESENT: RRR. ABSENT: diastolic murmur, rubs, systolic murmur Pulses: PRESENT: normal dorsalis pedis pul Vascular exam: PRESENT: normal capillary refill GI/Abdominal exam: PRESENT: normal bowel sounds, soft. ABSENT: distended, guarding, mass, organolmegaly, rebound, tenderness Rectal exam: PRESENT: deferred Extremities exam: PRESENT: full ROM. ABSENT: calf tenderness, clubbing, pedal edema Neurological exam: PRESENT: alert, awake, oriented to person, oriented to place, oriented to time, oriented to situation, CN II-XII grossly intact. ABSENT: motor sensory deficit Psychiatric exam: PRESENT: appropriate affect, normal mood. ABSENT: homicidal ideation, suicidal ideation Skin exam: PRESENT: dry, intact, warm. ABSENT: cyanosis, rash Results Laboratory Results: 10/20/18 05:35 10/20/18 05:35 10/20/18 10/20/18 05:35 05:35 WBC 3.0 L RBC 2.61 L Hgb 8.7 L Hct 25.0 L MCV 96 MCH 33.2 MCHC 34.7 RDW 16.2 H Plt Count 179 Sodium 139.2 Potassium 4.9 Chloride 98 Carbon Dioxide 35 H Anion Gap 6 BUN 20 Creatinine 0.58 Est GFR ( Amer) > 60 Est GFR (Non-Af Amer) > 60 Glucose 296 H Calcium 9.2 Impressions: Abdomen/Pelvis CT 10/17/18 00:00 IMPRESSION: Cavitary lesion within the superior segment of left lower lobe as described. This is concerning for malignancy, possibly treated already. 6 mm left upper lobe pulmonary nodule. Tree-in-bud nodular opacities in the lower lungs likely secondary to infectious or inflammatory bronchiolitis. Chest CT 10/17/18 00:00 IMPRESSION: Cavitary lesion within the superior segment of left lower lobe as described. This is concerning for malignancy, possibly treated already. 6 mm left upper lobe pulmonary nodule. Tree-in-bud nodular opacities in the lower lungs likely secondary to infectious or inflammatory bronchiolitis. Body Scan Nuclear Medicine 10/18/18 00:00 IMPRESSION: No evidence of metastatic disease. Assessment & Plan - Diagnosis (1) COPD exacerbation Is this a current diagnosis for this admission?: Yes Plan: Improved, ready for d/c will need steroid taper (2) Lung cancer Qualifiers: Laterality: right Lung location: overlapping sites Qualified Code(s): C34.81 - Malignant neoplasm of overlapping sites of right bronchus and lung Is this a current diagnosis for this admission?: Yes Plan: Holding all therapy for now. Maybe I/O induced pneumonitis (3) Colitis Is this a current diagnosis for this admission?: Yes Plan: Improved, needs 2 wk steroid taper (4) Weight loss Is this a current diagnosis for this admission?: Yes Plan: Improved, eating again
[2018-10-20] MEDS: INSULIN LISPRO 100 UNIT/ML 3 ML VIAL SUBCUT SCH (08:32)
[2018-10-20] MEDS: AMLODIPINE BESYLATE 10 MG TABLET PO SCH (09:51)
[2018-10-20] MEDS: BENAZEPRIL HCL 20 MG TABLET PO SCH (09:51)
[2018-10-20] MEDS: FAMOTIDINE 20 MG TABLET PO SCH (09:51)
[2018-10-20] MEDS: ASPIRIN 81 MG TABLET, ENT COATED PO SCH (09:51)
[2018-10-20] MEDS: DRONABINOL 2.5 MG CAPSULE PO SCH (09:51)
[2018-10-20] MEDS: ASCORBIC ACID 500 MG TABLET PO SCH (09:51)
[2018-10-20] MEDS: METFORMIN HCL 500 MG TABLET PO SCH (09:51)
[2018-10-20] MEDS: TIOTROPIUM BROMIDE DPI 5 CAP/KIT (18 MCG/CAP) IH SCH (09:52)
[2018-10-20] MEDS: SITAGLIPTIN PHOSPHATE 50 MG TABLET PO SCH (09:52)
[2018-10-20] MEDS: ALLOPURINOL 300 MG TABLET PO SCH (09:52)
[2018-10-20] MEDS: MULTIVITAMIN TABLET PO SCH (09:52)
[2018-10-20] MEDS: ENOXAPARIN SODIUM INJ 40 MG/0.4 ML DISP.SYRIN SUBCUT SCH (09:53)
[2018-10-20] MEDS: FLUTICASONE NASAL SPRAY 50 MCG/SPRY 120 SPRAY/16 GM NASL SCH (09:53)
[2018-10-20] MEDS: DOCUSATE SODIUM 100 MG CAPSULE PO SCH (09:53)
[2018-10-20] MEDS: FLUTICASONE/VILANTEROL 200-25 MCG/DOSE IH SCH (09:53)
--- NOTE | 2018-10-20 13:21 | PDOC DISCHARGE SUMMARY ---
General - Admit/Disc Date/PCP Admission Date/Primary Care Provider: 10/17/18 14:34 Discharge Date: 10/20/18 - Discharge Diagnosis (1) COPD exacerbation Is this a current diagnosis for this admission?: Yes Summary: Currently all improving (2) Weight loss Is this a current diagnosis for this admission?: Yes Summary: Patient CT scan of the chest abdomen pelvis is all stable (3) Weakness Is this a current diagnosis for this admission?: Yes Summary: All improving (4) Lung cancer Is this a current diagnosis for this admission?: Yes Summary: Currently all stable follow-up with the oncology (5) Mantle cell lymphoma Is this a current diagnosis for this admission?: Yes (6) Colitis Is this a current diagnosis for this admission?: Yes Summary: Due to the immunotherapy currently on a tapering dose of the steroid - Additional Information Resuscitation Status: Do Not Resuscitate Discharge Diet: Diabetic Discharge Activity: Activity As Tolerated Prescriptions: Insulin Lispro [Humalog Insulin (Lispro) 100 unit/mL] 0 - 12 unit SUBCUT ACHS #1 unit Prednisone [Deltasone 20 mg Tablet] 20 mg PO DAILY #30 tablet Home Medications: Allopurinol [Zyloprim 300 mg Tablet] 300 mg PO DAILY 04/04/17 Amlodipine Besylate/Benazepril [Lotrel 10-40 mg Capsule] 1 cap PO DAILY 04/04/17 Ascorbic Acid [Vitamin C] 1,000 mg PO DAILY 04/04/17 Aspirin [Ecotrin 81 mg EC Tablet] 81 mg PO DAILY 04/04/17 Atorvastatin Calcium [Lipitor 20 mg Tablet] 20 mg PO QHS 04/04/17 Fenofibrate Nanocrystallized [Tricor 145 mg Tablet] 145 mg PO QHS 04/04/17 Fluticasone Propionate [Flonase Nasal [place] 50 Mcg/[place] 16 gm] 1 spray NASL DAILY 04/04/17 Pregabalin [Lyrica 100 mg Capsule] 100 mg PO Q8 04/04/17 Sitagliptin Phos/Metformin HCl [Janumet 50-1,000 mg Tablet] 1 tab PO Q12 04/04/17 Tiotropium [place] [Spiriva Handihaler 18 mcg/dose (30 Dose)] 1 cap IH DAILY 04/04/17 Prednisone [Deltasone 20 mg Tablet] See Protocol PO DAILY 5 Days #20 tablet MDD filled 10/16 for 5 day supply 10/13/18 Colestipol HCl [Colestid 1 gm Tablet] 2 gm PO DAILY 10/17/18 Dronabinol 5 mg PO BID 10/17/18 Fluticasone/Salmeterol [Advair 250-50 Diskus 14 Dose/Diskus] 1 inh IH Q12 10/17/18 Multivitamin [Tab-A-Robert (Multiple Vitamin) Tablet] 1 tab PO DAILY 10/17/18 Insulin Lispro [Humalog Insulin (Lispro) 100 unit/mL] 0 - 12 unit SUBCUT ACHS #1 unit 10/20/18 Prednisone [Deltasone 20 mg Tablet] 20 mg PO DAILY #30 tablet 10/20/18 History of Present Illness History of Present Illness: FRANKIE UNGER is a 73 year old male 2 year old male with a history of COPD (on advair and spiriva daily, as well as ipratropium and albuterol as needed for SOB), as well as recurrent lung cancer s/p resection currently treated with chemotherapy, and lymphoma presents with a one month history of productive cough, fatigue, and weight loss. The patient has been seen with this complaint twice by oncology, and each time responded well to steroids and abx, however he continues to feel tired and fatigued, with the productive cough. Most recently, the patient was seen in the ED 4 days ago, when he had a CXR without evidence of acute infection. He was instructed to schedule nebulizers every 6 hours, and start taking prednisone. However the patient is feeling run down and tired, unable to eat secondary to loss of appetite, and not taking his steroids. He continues to use his inhalers daily, and is using his nebulizer every 6-8 hours, but is profoundly SOB. He is using 2Ls of oxygen at baseline, but contiues to feel SOB. Has lost about 35 pounds in the last 2 months. Continues to have diarrhea chronic, and intermittent nausea and emesis. Last CT scan about 6 weeks ago was read as stable. Continues to receive chemotherapy weekly. 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 Patient had a significant weight loss recently underwent for the CT scan of the chest abdomen pelvis did not reveal any progression of the disease Patient seen by oncology and suggest most likely the patient has some mild colitis on a CT scan with some symptomatic diarrhea and suggested may be partly tapering dose of the steroids Patient also giving IV Solu-Medrol nebulizer treatments for the COPD response very well Patient is requiring 2 L nasal cannula at home all the times Discussed with the patient about smoking counseling Patient at this point discharge home with the stable condition follow outpatients oncology in office in 1 week Continues to Janumet and also put on a sliding scale while patient is on steroid Physical Exam Vital Signs: Temp Pulse Resp BP Pulse Ox 98.2 F 88 16 123/44 L 97 10/20/18 08:52 10/20/18 09:03 10/20/18 09:03 10/20/18 08:52 10/20/18 09:03 Intake & Output 10/19/18 10/20/18 10/21/18 06:59 06:59 06:59 Intake Total 2667 2332 480 Output Total 1200 Balance 2667 1132 480 Weight 64.2 kg 65.4 kg General appearance: PRESENT: no acute distress, thin Head exam: PRESENT: atraumatic, normocephalic Eye exam: PRESENT: conjunctiva pink, EOMI, PERRLA. ABSENT: scleral icterus Ear exam: PRESENT: normal external ear exam Mouth exam: PRESENT: moist, tongue midline Neck exam: PRESENT: full ROM. ABSENT: carotid bruit, JVD, lymphadenopathy, thyromegaly Respiratory exam: PRESENT: clear to auscultation kali Cardiovascular exam: PRESENT: RRR. ABSENT: diastolic murmur, rubs, systolic murmur Pulses: PRESENT: normal dorsalis pedis pul, +2 pedal pulses bilateral Vascular exam: PRESENT: normal capillary refill GI/Abdominal exam: PRESENT: normal bowel sounds, soft. ABSENT: distended, guarding, mass, organolmegaly, rebound, tenderness Rectal exam: PRESENT: deferred Musculoskeletal exam: PRESENT: ambulatory Neurological exam: PRESENT: alert, awake, oriented to person, oriented to place, oriented to time, oriented to situation, CN II-XII grossly intact. ABSENT: motor sensory deficit Psychiatric exam: PRESENT: appropriate affect, normal mood. ABSENT: homicidal ideation, suicidal ideation Skin exam: PRESENT: dry, intact, warm. ABSENT: cyanosis, rash Results Laboratory Results: 10/20/18 05:35 10/20/18 05:35 10/20/18 10/20/18 05:35 05:35 WBC 3.0 L RBC 2.61 L Hgb 8.7 L Hct 25.0 L MCV 96 MCH 33.2 MCHC 34.7 RDW 16.2 H Plt Count 179 Sodium 139.2 Potassium 4.9 Chloride 98 Carbon Dioxide 35 H Anion Gap 6 BUN 20 Creatinine 0.58 Est GFR ( Amer) > 60 Est GFR (Non-Af Amer) > 60 Glucose 296 H Calcium 9.2 10/17/18 19:20 Sputum Gram Stain - Final 10/17/18 19:20 Sputum Sputum Culture - Final NORMAL [place] Impressions: Abdomen/Pelvis CT 10/17/18 00:00 IMPRESSION: Cavitary lesion within the superior segment of left lower lobe as described. This is concerning for malignancy, possibly treated already. 6 mm left upper lobe pulmonary nodule. Tree-in-bud nodular opacities in the lower lungs likely secondary to infectious or inflammatory bronchiolitis. Chest CT 10/17/18 00:00 IMPRESSION: Cavitary lesion within the superior segment of left lower lobe as described. This is concerning for malignancy, possibly treated already. 6 mm left upper lobe pulmonary nodule. Tree-in-bud nodular opacities in the lower lungs likely secondary to infectious or inflammatory bronchiolitis. Body Scan Nuclear Medicine 10/18/18 00:00 IMPRESSION: No evidence of metastatic disease. Qualifiers - * PATIENT BEING DISCHARGED WITH ANY OF THE FOLLOWING DIAGNOSIS: No VTE patient discharged on overlapping Therapy?: Yes Acute Heart Failure - Is this a Heart Failure Patient?: No Plan Time Spent: Greater than 30 Minutes - Follow with the oncology in 1 week Contin ues to oxygen at home continues nebulizer treatment at home Following a 1 week in office
== END 2018-10-20 11:58 | disposition home or self-care (01) | DRG 191 ==
LOC: 4N 14:34
PROVIDERS: ADMIT Family Medicine; ATTEND Family Medicine
DX: J44.1 Chronic obstructive pulmonary disease with (acute) exacerbation (principal); C83.10 Mantle cell lymphoma, unspecified site; C95.90 Leukemia, unspecified not having achieved remission; C34.81 Malignant neoplasm of overlapping sites of right bronchus and lung; K52.89 Other specified noninfective gastroenteritis and colitis; R63.4 Abnormal weight loss; E78.5 Hyperlipidemia, unspecified; I10 Essential (primary) hypertension; F17.210 Nicotine dependence, cigarettes, uncomplicated; E11.9 Type 2 diabetes mellitus without complications; Z90.2 Acquired absence of lung [part of]; Z66 Do not resuscitate; Z79.4 Long term (current) use of insulin; Z92.21 Personal history of antineoplastic chemotherapy; Z79.899 Other long term (current) drug therapy; Z79.82 Long term (current) use of aspirin; Z99.81 Dependence on supplemental oxygen; Z83.3 Family history of diabetes mellitus; Z82.49 Family history of ischemic heart disease and other diseases of the circulatory system; Z80.9 Family history of malignant neoplasm, unspecified; Z79.52 Long term (current) use of systemic steroids
CPT/HCPCS: 36415; 71260; 74177; 78306; 80048; 80053; 82962; 85025; 85027; 87040; 87070; 87205; 87493; 93005; 93010; 94640; A9270-GY; A9561; J1642; J1815; J2920; J2930; J3490; J7620; Q9969